=== PATIENT | female | born 1970 | race Caucasian/White ===

== ENCOUNTER 2020-01-07 04:48 | Emergency (ER) | payer BC, SELFPAY ==
--- NOTE | 2020-01-07 04:51 | ED.BACK ---
HPI - Back Pain/Injury General Chief Complaint: Back Pain/Injury Stated Complaint: back pain Time Seen by Provider: 01/07/20 04:51 History of Present Illness HPI Narrative: right mid back pain for the past week. Hurts worse with deep inspiration, laughing, coughing. She has seen her PCP had x-rays, and a CT scan which did not show anything. She is currently being treated with muscle relaxers and tylenol with mild benefit. Related Data Home Medications Medication Instructions Recorded Confirmed bupropion HCl [Wellbutrin XL] 450 mg PO DAILY 06/28/19 07/13/19 olmesartan-hydrochlorothiazide 1 tablet PO DAILY 06/28/19 07/13/19 [Benicar HCT] Allergies Allergy/AdvReac Type Severity Reaction Status Date / Time No Known Allergies Allergy Verified 01/07/20 04:59 Review of Systems Review of Systems: All systems reviewed & are unremarkable except as noted in HPI and below Constitutional: Constitutional: Denies chills and Denies fever(s) Cardiovascular: Cardiovascular: Denies chest pain Respiratory: Respiratory: Denies cough and Denies dyspnea Gastrointestinal: Gastrointestinal: Denies abdominal pain, Denies nausea and Denies vomiting Genitourinary: Genitourinary: Denies hematuria, Denies nocturia and Denies dysuria Musculoskeletal: Musculoskeletal: Reports back pain Neurologic: Denies numbness and Denies weakness PMFSH Past Medical History Medical History Acute diverticulitis Breast cancer, right Cyst of Bartholin gland or duct removed and had to be taken back to surgery of 2nd time to cauterize the bleeders Depression Diverticulitis Fracture of right hip requiring operative repair Hypertension TIERRA (obstructive sleep apnea) Surgical History Surgical History H/O mastectomy bilateral with a history of right breast cancer and breast reconstruction History of appendectomy History of breast reconstruction History of bunionectomy S/P arthroscopic surgery of right knee Family History Family History Mother Family history of osteoarthritis Dementia Father Family history of lung cancer, Onset Age: 75 Patient's father is Social History Social History Social History: 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 She desires to be a full code. She has 2 children. Two girls 11 in 13. She is currently unemployed. Smoking status: Never smoker Alcohol intake: current Substance use: never Other substance usage details: occasional alcohol intake socially (2-3 drinks per month) Gender identity (if verbalized by the patient): Female Spiritual care concerns: No Agree to blood products: Yes Exam Const: General: healthy appearing, no acute distress and alert Orientation/consciousness: patient oriented x3 HENMT: Head: normal to inspection Resp: Effort & Inspection: normal respiratory effort Auscultation: clear to auscultation bilaterally Cardio: Rate: regular rate Rhythm: regular rhythm GI: Other: NTND Skin: General skin exam: normal color Neuro: General: patient oriented x3, moves all extremities, no focal motor deficits and CN's II-XI intact bilaterally Speech: normal speech Extrem: General: normal to inspection Course Vital Signs Vital signs: Vital Signs Temperature 36.8 C 01/07/20 04:53 Pulse Rate 104 H 01/07/20 04:53 Respiratory Rate 20 01/07/20 04:53 Blood Pressure 178/104 H 01/07/20 04:53 Pulse Oximetry 99 01/07/20 04:53 Temperature 36.8 C 01/07/20 04:53 Pulse Rate 100 01/07/20 06:07 Respiratory Rate 20 01/07/20 06:07 Blood Pressure 148/88 H 01/07/20 06:07 Pulse Oximetry 98 01/07/20 06:07 MDM - Back Pain/Injury MDM Narrative Medical decision making narrative: She see
[2020-01-07 04:53] VITALS: BP 178/104; PULSE 104; RESP 20; TEMP 36.8; O2SAT 99
[2020-01-07] MEDS: KETOROLAC (*BKC) 60 MG/2 ML VIAL IM (05:24)
[2020-01-07 05:38] LABS: Add Urine Microscopic? YES; Appearance Urine Cloudy (Clear); Bacteria Urine Trace /hpf; Bilirubin Urine Negative (Negative); Blood Urine Negative (Negative); Color Urine Yellow (Yellow); Glucose Urine UA Negative (Negative); Ketones Urine Negative (Negative); Leukocyte Esterase Ur 1+ LEU/UL (Negative); Mucus Urine Rare /lpf; Nitrate Urine Negative (Negative); Protein Urine Negative (Negative); RBC Urine 0-2 /hpf (0-2); Squamous Epithelial Cell Urine Many /hpf (Few); Urobilinogen Urine Negative mg/dL (<2.0)
[2020-01-07 05:39] LABS: Specific Grav Ur 1.033 (1.001-1.035)
[2020-01-07 06:07] VITALS: BP 148/88; PULSE 100; RESP 20; O2SAT 98
== END 2020-01-07 06:10 | disposition home or self-care (01) ==
PROVIDERS: Emergency Provider Emergency Medicine; PCP Internal Medicine
DX: M54.6 Pain in thoracic spine (principal); Z85.3 Personal history of malignant neoplasm of breast; I10 Essential (primary) hypertension; G47.33 Obstructive sleep apnea (adult) (pediatric); Z90.11 Acquired absence of right breast and nipple
CPT/HCPCS: 81001; 96372; 99283; J1885

== ENCOUNTER 2020-01-12 15:49 | Emergency (ER) | payer BC, SELFPAY ==
--- NOTE | ~2020-01-12 | XR_ITS ---
EXAMINATION: XR ribs RT 2V w CXR 2V DATE: 01/12/2020 16:57 INDICATION: Lower posterior right rib pain following chiropractic adjustment TECHNIQUE: PA and lateral views of the chest and 3 views of the right ribs were obtained. COMPARISON: Chest radiograph and CT dated 08/31/2014 FINDINGS: No rib fractures identified. No pneumothorax. No focal infiltrates, pleural effusion or pulmonary chalino ma. Cardiomediastinal silhouette is normal. Bilateral breast implants. Mild to moderate thoracic spo ndylosis. IMPRESSION: 1. No rib fracture or acute cardiopulmonary disease. Reviewed, dictated and finalized at location A.
[2020-01-12 15:57] VITALS: BP 176/110; PULSE 99; RESP 20; TEMP 36.3; O2SAT 100
--- NOTE | 2020-01-12 16:48 | ED.BACK ---
HPI - Back Pain/Injury General Chief Complaint: Back Pain/Injury Stated Complaint: Back pain Time Seen by Provider: 01/12/20 16:14 Source: patient Mode of arrival: ambulatory Limitations: no limitations History of Present Illness HPI Narrative: This is a 49 year old female that presents to the ER for right-sided back pain present x2 weeks. Reports she has been seeing her primary care doctor for this and has had a CT scan and MRI of her back. Reports no recent injury or trauma. Reports she saw her chiropractor yesterday and the pain initially was better. Reports last night it started to worsen again. She has taken Tylenol and anti-inflammatories with little relief today. Denies weakness or numbness. Related Data Home Medications Medication Instructions Recorded Confirmed bupropion HCl [Wellbutrin XL] 450 mg PO DAILY 06/28/19 07/13/19 olmesartan-hydrochlorothiazide 1 tablet PO DAILY 06/28/19 07/13/19 [Benicar HCT] Allergies Allergy/AdvReac Type Severity Reaction Status Date / Time No Known Allergies Allergy Verified 01/12/20 16:01 Review of Systems Review of Systems: Narrative: CONSTITUTIONAL: Denies fever MUSCULOSKELETAL: Reports back pain, and myalgia. NEUROLOGIC: Denies numbness, or weakness. 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 She desires to be a full code. She has 2 children. Two girls 11 in 13. She is currently unemployed. Smoking status: Never smoker Alcohol intake: current Substance use: never Other substance usage details: occasional alcohol intake socially (2-3 drinks per month) Gender identity (if verbalized by the patient): Female Spiritual care concerns: No Agree to blood products: Yes Exam Narrative: Exam Narrative: GENERAL: Well-appearing, well-nourished, and in no acute distress. HEAD: Normocephalic, atraumatic. EYES: EOMI. CHEST: Clear to auscultation. No respiratory distress. No wheezes rales or rhonchi HEART: Regular rate and rhythm. No murmur heard. Normal peripheral pulses. BACK: Tender to palpation of the right thoracic paraspinal musculature EXTREMITIES: Normal range of motion. No edema. Strength equal in bilateral upper extremities SKIN: Warm, dry, no rash. NEURO: No focal deficits. Alert and oriented x3. PSYCH: Normal mood and affect Course Vital Signs Vital signs: Vital Signs Temperature 97.3 F L 01/12/20 15:57 Pulse Rate 99 01/12/20 15:57 Respiratory Rate 20 01/12/20 15:57 Blood Pressure 176/110 H 01/12/20 15:57 Pulse Oximetry 100 01/12/20 15:57 Temperature 97.3 F L 01/12/20 15:57 Pulse Rate 99 01/12/20 15:57 Respiratory Rate 20 01/12/20 15:57 Blood Pressure 176/110 H 01/12/20 15:57 Pulse Oximetry 100 01/12/20 15:57 MDM - Back Pain/Injury MDM Narrative Medical decision making narrative: Patient presents the emergency department for right-sided mid back pain x2 weeks. Was seen here for this 5 days ago. No new injuries or trauma. She is afebrile and nontoxic-appearing. Patient is neurologically intact. Tender to palpation of the right-sided paraspinal musculature. Rib/chest x-rays without acute findings. She has been seen by her primary for this and has had CT scan and MRI done. Patient is stable and felt appropriate for further outpatient evaluation. She is to follow-up with her primary care doctor. She was given warnings to return to the ER Imaging Data Radiologist's impression: ITS Impressions Ribs w/Chest X-Ray 01/12/20 17:21 IMPRESSION: 1. No rib fracture or acute cardiopulmonary disease. Critical Care Time Critical Care Time Critical Care Time: No Discharge Plan Discharge Clinical Impression: Acute right-sided thoracic back pain Patient Disposition: Home, Self-Care
--- NOTE | 2020-01-12 17:38 | PC.NURSE ---
Reports no change in pain.
== END 2020-01-12 19:03 | disposition home or self-care (01) ==
PROVIDERS: Emergency Provider Emergency Medicine
DX: M54.6 Pain in thoracic spine (principal)
CPT/HCPCS: 71046; 71100; 96372; 99283; J3360

== ENCOUNTER 2021-05-31 12:00 | Emergency (ER) | payer BC, SELFPAY ==
[2021-05-31 12:20] VITALS: BP 151/115; PULSE 86; RESP 16; TEMP 37; O2SAT 100
--- NOTE | 2021-05-31 13:24 | PC.NURSE ---
Pt states that she is going to check out and follow up with her eye doctor tomorrow.
== END 2021-05-31 13:24 | disposition left against medical advice (07) ==
LOC: ANHED 13:56
PROVIDERS: Emergency Provider Family Medicine
DX: H53.8 Other visual disturbances (principal)
CPT/HCPCS: 99199

== ENCOUNTER 2022-09-12 02:50 | Emergency (ER) | payer BC, SELFPAY ==
[2022-09-12] VITALS (30 sets, daily range): BP systolic 93–135; BP diastolic 53–101; PULSE 72–105; RESP 10–22; TEMP 36.9; O2SAT 93–99
--- NOTE | ~2022-09-12 | CT_ITS ---
EXAMINATION: CT abdomen pelvis w con DATE: 09/12/2022 05:15 INDICATION: Diverticulitis. Low abdominal pain for 3 days. Nausea. Low fever. TECHNIQUE: Computed tomography (CT) of the abdomen and pelvis was performed with 100 cc Omnipaque 350 intravenous contrast. The dose-length product was 618.52 mGy-cm. Automated exposure control and iter ative reconstruction technique were employed. COMPARISON: CT dated 07/13/2019 FINDINGS: There are bilateral breast implants. Lung bases are unremarkable. Heart size normal. No sig nificant vascular abnormality. No lymphadenopathy. There is a acute diverticulitis of the distal descending and proximal sigmoid colon. Moderate surroun ding phlegmonous change. No evidence for perforation or abscess. Fatty infiltration of the liver. Gallbladder is present. The spleen, pancreas, adrenal glands are unr emarkable. There are small subcentimeter hypodensities of the kidneys, too small to characterize. [place] lorri is mildly enlarged. No significant vascular abnormality. No lymphadenopathy. There are degenerati ve changes of the hips. There is heterotopic ossification adjacent to the right femur proximally. Mil d lumbar spondylosis. IMPRESSION: 1. Acute diverticulitis of the distal descending/proximal sigmoid colon without evidence for perforat ion or abscess Reviewed, dictated and finalized at location A. [facility] [employer] IMPRESSION: 1. Acute diverticulitis of the distal descending/proximal sigmoid colon without evidence for perforation or abscess
[2022-09-12 04:20] LABS: Appearance Urine Clear (Clear); Basophils Absolute Auto 0.1 K/mm3 (0.0-0.1); Basophils Percent Auto 0.3 % (0.2-1.2); Bilirubin Urine Negative (Negative); Blood Urine Negative (Negative); Color Urine Yellow (Yellow); Eosinophils Absolute Auto 0.3 K/mm3 (0-0.3); Eosinophils Percent Auto 1.9 % (0-4.4); Glucose Urine UA Negative (Negative); Hematocrit 37.9 % (37.0-47.0); Hemoglobin 13.3 g/dL (12.0-15.0); Immature Granulocyte Absolute 0.05 K/mm3 (0.00-0.031); Immature Granulocyte Percent A 0.3 % (0-0.5); Ketones Urine Negative (Negative); Leukocyte Esterase Ur Trace LEU/UL (Negative); Lymphocytes Absolute Auto 1.48 K/mm3 (0.9-3.2); Lymphocytes Percent Auto 10.1 % (18.3-44.2); Mean Corpuscular HGB Conc 35.1 g/dl (32-36); Mean Corpuscular Hemoglobin 31.2 pg (26-34); Mean Platelet Volume 9.2 fl (7.4-10.4); Monocytes Absolute Auto 0.7 K/mm3 (0.1-0.6); Monocytes Percent Auto 5.1 % (2.6-8.5); Neutrophils Percent Auto 82.3 % (45.5-73.1); Nitrate Urine Negative (Negative); Platelet Count Result 331 k/mm3 (150-375); Protein Urine Negative (Negative); Red Blood Count 4.26 M/mm3 (4.2-5.4); Red Cell Distribution Width 16.5 % (11.5-14.5); Specific Grav Ur 1.015 (1.001-1.035); Urobilinogen Urine 0.2 mg/dL (<2.0); White Blood Count 14.6 K/mm3 (4.5-10.0); pH Urine 5.5 (5.0-9.0)
[2022-09-12 04:23] LABS: Mucus Urine Rare /lpf; RBC Urine 0-2 /hpf (0-2); Squamous Epithelial Cell Urine Moderate /hpf (Few); WBC Urine 0-3 /hpf
[2022-09-12] MEDS: ONDANSETRON INJ 4 MG/2 ML VIAL IV PUSH ×2 (04:29→07:45)
[2022-09-12 04:32] LABS: Alanine Aminotransferase 20 U/L (6-35); Albumin Level 4.5 g/dL (3.5-5.1); Alkaline Phosphatase 68 U/L (38-126); Anion Gap 7 mmol/L (8-16); Aspartate Amino Transferase 34 U/L (14-36); Bilirubin,Total 0.7 mg/dL (0.2-1.3); Blood Urea Nitrogen 10 mg/dL (7-17); Calcium 8.9 mg/dL (8.4-10.2); Carbon Dioxide 26 mmol/L (22-30); Chloride 99 mmol/L (98-107); Estimated Glomerular Filt Rate > 60; Glucose 109 mg/dL (65-110); Lipase 76 U/L (23-300); Potassium 4.1 mmol/L (3.4-5.0); Sodium 132 mmol/L (137-145)
[2022-09-12 04:35] LABS: Add Urine Microscopic? YES
--- NOTE | 2022-09-12 06:17 | ED.GENADULT ---
HPI - General Adult General Chief complaint: Abdominal Pain <Cameron Carnes MD - Last Filed: 09/12/22 06:25> Stated complaint: Abd pain, nausea, hx diverticulitis <Cameron Carnes MD - Last Filed: 09/12/22 06:25> Time Seen by Provider: 09/12/22 03:56 <Cameron Carnes MD - Last Filed: 09/12/22 06:25> History of Present Illness HPI narrative: This is a 52-year-old female with history of diverticulitis presenting to ED with left lower quadrant pain. Patient started having pain in the left lower quadrant on morning. She called Dr. Resendez and he prescribed her Flagyl and Augmentin. She has been taking the medicine as directed but her pain is worsening. She is now having intermittent nausea and vomiting. She denies fever, chills or chest pain, difficulty breathing or urinary symptoms. <Cameron Carnes MD - Last Filed: 09/12/22 06:25> Related Data Home medications: Home Medications Medication Instructions Recorded Confirmed bupropion HCl 300 mg 24 hr tablet, 450 mg PO DAILY 06/28/19 06/08/21 extended release (Wellbutrin XL) olmesartan 40 1 tablet PO DAILY 06/28/19 06/08/21 mg-hydrochlorothiazide 12.5 mg tablet (Benicar HCT) <Cameron Carnes MD - Last Filed: 09/12/22 06:25> Allergies/adverse reactions: Allergies Allergy/AdvReac Type Severity Reaction Status Date / Time No Known Allergies Allergy Verified 09/12/22 03:37 <Cameron Carnes MD - Last Filed: 09/12/22 06:25> [facility] Past Medical History Medical History: Medical History (Updated 09/12/22 @ 06:25 by Cameron Carnes MD) Acute diverticulitis Breast cancer, right Cyst of Bartholin gland or duct removed and had to be taken back to surgery of 2nd time to cauterize the bleeders Depression Diverticulitis Fracture of right hip requiring operative repair Hypertension TIERRA (obstructive sleep apnea) <Cameron Carnes MD - Last Filed: 09/12/22 06:25> Surgical History Surgical History: Surgical History H/O mastectomy bilateral with a history of right breast cancer and breast reconstruction History of appendectomy History of breast reconstruction History of bunionectomy S/P arthroscopic surgery of right knee <Cameron Carnes MD - Last Filed: 09/12/22 06:25> Family History Family History: Family History Mother Family history of osteoarthritis Dementia Father Family history of lung cancer, Onset Age: 75 Patient's father is <Cameron Carnes MD - Last Filed: 09/12/22 06:25> Social History Social History: Social History Social History: 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 She desires to be a full code. She has 2 children. Two girls 11 in 13. She is currently unemployed. Smoking status: Never smoker Alcohol intake: current Substance use: never Other substance usage details: occasional alcohol intake socially (2-3 drinks per month) Living arrangements: with family Occupation/Education: unemployed Gender identity (if verbalized by the patient): Female Spiritual care concerns: No Agree to blood products: Yes <Cameron Carnes MD - Last Filed: 09/12/22 06:25> Exam Narrative: APPEARANCE: No apparent distress. Head: atraumatic. EYES: EOMI, NOSE: Atraumatic NECK: Trachea midline RESPIRATORY: No increased rate of breathing CARDIOVASCULAR: RRR, ABDOMINAL: Tenderness palpation in the left lower quadrant. Voluntary guarding. The rest the abdomen is soft, nontender MUSCULOSKELETAl: No obvious deformities NEURO: Alert. Moving 4/4 extremities SKIN:: Warm, dry. Normal color PSYCHIATRIC: Normal affect <Cameron Carnes MD - Last Filed: 09/12/22 06:25> Course Course Emergency Course: 0700 ROSARIO: Signed out to oncoming physician pending
[2022-09-12] MEDS: SODIUM CHLORIDE 0.9% IV 2,000 ML 999 ML IV CONT (06:59)
[2022-09-12] MEDS: HYDROmorphone HCL INJ (*CRX) 1 MG/ML SYR 0.5 MG IV PUSH (07:00)
--- NOTE | 2022-09-12 07:10 | PC.NURSE ---
Report given to GENNA Knight
== END 2022-09-12 09:50 | disposition home or self-care (01) ==
PROVIDERS: Emergency Provider Emergency Medicine; PCP Internal Medicine
DX: K57.32 Diverticulitis of large intestine without perforation or abscess without bleeding (principal); I10 Essential (primary) hypertension; G47.33 Obstructive sleep apnea (adult) (pediatric); F32.A Depression, unspecified; Z85.3 Personal history of malignant neoplasm of breast; Z90.13 Acquired absence of bilateral breasts and nipples
CPT/HCPCS: 36415; 74177; 80053; 81001; 81025; 83690; 85025; 96361; 96365; 96367; 96375; 96376; 99284; J0131; J1170; J2405; J2543; J7030; Q9967

== ENCOUNTER 2023-09-22 08:15 | Outpatient (RCR) | payer BC, SELFPAY ==
--- NOTE | 2023-09-07 11:57 | PTOPEVAL1 ---
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 She reports that she underwent x-ray which revealed some wear on the cartilage. She states that she has had multiple injections with less relief noted following the last Rx. Pt. reports that she continues to walk 1 mile regularly, but has increased pain after the activity. She reports that her doctor did not suggest knee replacement at this time. She states that sitting for long periods of time will also increase her pain. She states that stairs, squatting and kneeling are very difficult due to pain. She reports that she had little complication with standing activities prior to her onset last summer. She reports that her goal is to be able to reduce her knee pain. Reported Pain Level Pain Score 2: Self Report Assessment PT Clinical Summary Pt. is a 53 year old female who enters the clinic with left anterior knee pain syndrome. She presents with impaired flexibility, impaired proximal l.e. strength, impaired gait, impaired postural awareness and pain. Continued skilled PT is indicated in order to improve these areas to allow for improved comfort with IADL performance. Plan of Care Interventions Electrical Stimulation,Gait Training,Hot Pack/Cold Pack,Manual Therapy,Neuro Re-education,Patient/ Caregiver Educati,Therapeutic Activities, Therapeutic Exercise PT Services Indicated Yes Treatment Frequency and 2x/week x 8 visits Duration These treatments will address the objective and functional deficits as defined above. The patient will be advanced safely and appropriately in order for the patient to progress towards his/her prior level of function. Additional exercises will be introduced and as well as a comprehensive home exercise program upon discharge, if needed, ?to ensure carryover of functional gains achieved in the clinic. This treatment plan has been reviewed and agreement upon by the patient.
--- NOTE | 2023-09-07 11:57 | OPREHPOC ---
Outpatient Therapy Plan of Care This is a Multidisciplinary Plan of Care that may contain components documented by all disciplines (PT, OT, and ST.) PT Problem 1 PT Problem #1 Knowledge Deficit PT Goal 1 Goal Independent with a HEP addressing hip strength and flexibility. Target Visit 2 PT Problem 2 PT Problem #2 Impaired Flexibility PT Goal 1 Goal Pt. will present at 15 degrees from full knee extension on both right and left with the 90/90 test. Target Visit 8 PT Problem 3 PT Problem #3 Impaired Strength PT Goal 1 Goal Pt. will improve hip abduction and ER strength bilateral to 4+/5 to improve stability with closed kinetic chain activities and improve postural awareness. PT Problem 4 PT Problem #4 Impaired Gait PT Goal 1 Goal Pt. will be able to ascend and descend 20 steps without pain increase. Target Visit 8 PT Problem 5 PT Problem #5 Impaired Functional Mobil PT Goal 1 Goal Pt. will present with less than 15% limitation with the LEFS indicating significant functional improvement. Target Visit 8
--- NOTE | 2023-09-26 11:05 | PCPTNOTE ---
pt called and canceled today's appt.
--- NOTE | 2023-09-28 07:39 | PCPTNOTE ---
Pt. called a cancelled her scheduled therapy appointment due to being sick. Joe Garcia, MPT
--- NOTE | 2024-02-16 15:46 | PTOPDC ---
Assessment and note entered by Joe Garcia Evaluation Information Assessment Status Discharge - Pt Not Presen Diagnosis anterior knee pain syndrome, left Onset Assessment PT Clinical Summary Pt. attended a total of 5 treatment sessions from 09/07/23 to 09/22/23. During her last sessions she denied pain and provided reports of less intense pain. She cancelled her last 2 scheduled appointments and has failed to return since . At this time she will be discharged from our care. Refer to the last daily note for pt. discharge status. Plan of Care PT Services Indicated No
== END 2023-11-23 11:39 | disposition home or self-care (01) ==
LOC: ANHPT 08:15
PROVIDERS: PCP Internal Medicine; Visit Provider Orthopaedic Surgery
DX: M25.562 Pain in left knee (principal)
CPT/HCPCS: 97014; 97110; 97112; 97161; 97530; G0283

== ENCOUNTER 2024-06-10 08:16 | Emergency (ER) | payer BC, SELFPAY ==
--- NOTE | ~2024-06-10 | CT_ITS ---
EXAMINATION: CT soft tissue neck w con DATE: 06/10/2024 14:13 INDICATION: TECHNIQUE: Computed tomography (CT) of the neck was performed with 75 mL Omnipaque-350 intravenous co ntrast. The dose-length product was 504.79 mGy-cm. COMPARISON: None FINDINGS: Slight enlargement of the left submandibular gland. The thyroid gland is unremarkable. The parotid glands are symmetric. Prominence of the left upper anterior cervical chain lymph nodes, without pa thologic enlargement The superior mediastinum is unremarkable. The airway is unremarkable. Parap haryngeal and pre-glottic fat planes are preserved. Normal enhancing neck arteries. The orbits are unremarkable. Visualized sinuses and mastoid air cells are well aerated. Visualized lung parench yma is clear. Regional bones within normal limits. IMPRESSION: Mild left submandibular gland enlargement. Reviewed, dictated and finalized at location K. R [employer]
[2024-06-10 08:19] VITALS: BP 165/91; PULSE 79; RESP 16; TEMP 36.7; O2SAT 100
[2024-06-10 10:34] VITALS: BP 133/85; PULSE 80; RESP 18; TEMP 36.6; O2SAT 100
[2024-06-10 12:24] LABS: Basophils Percent Auto 0.4 % (0.2-1.2); Eosinophils Absolute Auto 0.3 K/mm3 (0-0.3); Eosinophils Percent Auto 4.5 % (0-4.4); Hematocrit 43.7 % (37.0-47.0); Hemoglobin 15.3 g/dL (12.0-15.0); Immature Granulocyte Absolute 0.01 K/mm3 (0.00-0.031); Immature Granulocyte Percent A 0.1 % (0-0.5); Lymphocytes Absolute Auto 2.59 K/mm3 (0.9-3.2); Lymphocytes Percent Auto 36.6 % (18.3-44.2); Mean Corpuscular Volume 94.4 fl (80-100); Mean Platelet Volume 8.9 fl (7.4-10.4); Monocytes Absolute Auto 0.3 K/mm3 (0.1-0.6); Neutrophils Absolute Auto 3.9 K/mm3 (1.3-6.7); Neutrophils Percent Auto 54.4 % (45.5-73.1); Platelet Count Result 246 k/mm3 (150-375); Red Blood Count 4.63 M/mm3 (4.2-5.4); Red Cell Distribution Width 12.5 % (11.5-14.5); White Blood Count 7.1 K/mm3 (4.5-10.0)
[2024-06-10 12:36] LABS: Anion Gap 9 mmol/L (4-12); Blood Urea Nitrogen 15 mg/dL (7-17); Calcium 9.4 mg/dL (8.4-10.2); Carbon Dioxide 26 mmol/L (22-30); Chloride 102 mmol/L (98-107); Estimated CRCL calculation 79 ml/min; Estimated Glomerular Filt Rate > 60; Glucose 93 mg/dL (65-110); Potassium 4.2 mmol/L (3.4-5.0); Sodium 137 mmol/L (137-145)
--- NOTE | 2024-06-10 14:44 | ED.GENADULT ---
HPI - General Adult General Chief complaint: Unspecified Stated complaint: swollen gland in neck Time Seen by Provider: 06/10/24 11:52 History of Present Illness HPI narrative: This is a 54-year-old female presenting with swelling to her jaw. She notes several days ago that she was developing swelling along the left jawline. Is not interfering with swallowing her own secretions or breathing although there is some discomfort when she swallows. She is having not have any difficulty eating food or drinking water. No fevers chills chest pain nausea vomiting or diarrhea. She saw her dentist and they do not point believe this is of dental origin. Related Data Home Medications Medication Instructions Recorded Confirmed bupropion HCl 300 mg 24 hr tablet, 450 mg PO DAILY 06/28/19 09/25/22 extended release (Wellbutrin XL) olmesartan 40 1 tablet PO DAILY 06/28/19 09/25/22 mg-hydrochlorothiazide 12.5 mg tablet (Benicar HCT) Allergies Allergy/AdvReac Type Severity Reaction Status Date / Time No Known Allergies Allergy Verified 09/23/22 13:04 [facility] Past Medical History Medical History (Updated 06/10/24 @ 14:49 by Cameron Carnes MD) Acute diverticulitis Breast cancer, right Cyst of Bartholin gland or duct removed and had to be taken back to surgery of 2nd time to cauterize the bleeders Depression Diverticulitis Fracture of right hip requiring operative repair Hypertension TIERRA (obstructive sleep apnea) Surgical History Surgical History H/O mastectomy bilateral with a history of right breast cancer and breast reconstruction History of appendectomy History of breast reconstruction History of bunionectomy S/P arthroscopic surgery of right knee Family History Family History Mother Family history of osteoarthritis Dementia Father Family history of lung cancer, Onset Age: 75 Patient's father is Social History Social History Social History: 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 She desires to be a full code. She has 2 children. Two girls 11 in 13. She is currently unemployed. Smoking status: Never smoker Alcohol intake: current Substance use: never Other substance usage details: occasional alcohol intake socially (2-3 drinks per month) Living arrangements: with family Occupation/Education: unemployed Gender identity (if verbalized by the patient): Female Spiritual care concerns: No Agree to blood products: Yes Exam Narrative: APPEARANCE: No apparent distress. Head: Good dentition, mild swelling underneath the left mandible, floor of the mouth is soft, no redness or significant tenderness. No erythema or swelling in the posterior oropharynx EYES: EOMI, NOSE: Atraumatic NECK: Trachea midline RESPIRATORY: No increased rate of breathing CARDIOVASCULAR: RRR, ABDOMINAL: Non-distended MUSCULOSKELETAl: No obvious deformities NEURO: Alert. Moving 4/4 extremities SKIN:: Warm, dry. Normal color PSYCHIATRIC: Normal affect Course Vital Signs Vital signs: Vital Signs Temperature 98.0 F 06/10/24 08:19 Pulse Rate 79 06/10/24 08:19 Respiratory Rate 16 06/10/24 08:19 Blood Pressure 165/91 H 06/10/24 08:19 Pulse Oximetry 100 06/10/24 08:19 Oxygen Delivery Room Air 06/10/24 08:19 Temperature 97.8 F 06/10/24 10:34 Pulse Rate 80 06/10/24 10:34 Respiratory Rate 18 06/10/24 10:34 Blood Pressure 133/85 06/10/24 10:34 Pulse Oximetry 100 06/10/24 10:34 Oxygen Delivery Room Air 06/10/24 08:19 Medical Decision Making MDM Narrative Medical decision making narrative: -Course: 54-year-old female presenting with swelling along the left jawline. CT soft tissue neck is shows a swollen mandibular gland. No fevers or elevated white blood cell count. Patient will be placed on Augmentin. Instructed to use sour candies to cover sialolithiasis. Patient given a ENT follow-up and return precautions. -DDX includes but is not limited to: Sialolithiasis, mandibular right infection -Co-morbidities complicating care: Hypertension, depression -Independent interpretation of studies: Imaging and lab work -Interventions: Augmentin b.i.d. x5 days -Shared decision making / Disposition: -RX Vital Signs Vital Signs: Vital Signs Temperature 98.0 F 06/10/24 08:19 Pulse Rate 79 06/10/24 08:19 Respiratory Rate 16 06/10/24 08:19 Blood Pressure 165/91 H 06/10/24 08:19 Pulse Oximetry 100 06/10/24 08:19 Oxygen Delivery Room Air 06/10/24 08:19 Temperature 97.8 F 06/10/24 10:34 Pulse Rate 80 06/10/24 10:34 Respiratory Rate 18 06/10/24 10:34 Blood Pressure 133/85 06/10/24 10:34 Pulse Oximetry 100 06/10/24 10:34 Oxygen Delivery Room Air 06/10/24 08:19 Lab Data 06/10/24 12:19 06/10/24 12:19 Labs: Lab Results 06/10/24 Range/Units 12:19 WBC 7.1 (4.5-10.0) K/mm3 RBC 4.63 (4.2-5.4) M/mm3 Hgb 15.3 H (12.0-15.0) g/dL Hct 43.7 (37.0-47.0) % MCV 94.4 (80-100) fl MCH 33.0 (26-34) pg MCHC 35.0 (32-36) g/dl RDW 12.5 (11.5-14.5) % Plt Count 246 (150-375) k/mm3 MPV 8.9 (7.4-10.4) fl Immature Gran % (Auto) 0.1 (0-0.5) % Neut % (Auto) 54.4 (45.5-73.1) % Lymph % (Auto) 36.6 (18.3-44.2) % Ellis % (Auto) 4.0 (2.6-8.5) % Eos % (Auto) 4.5 H (0-4.4) % Baso % (Auto) 0.4 (0.2-1.2) % Lymph # (Auto) 2.59 (0.9-3.2) K/mm3 Ellis # (Auto) 0.3 (0.1-0.6) K/mm3 Eos # (Auto) 0.3 (0-0.3) K/mm3 Baso # (Auto) 0.0 (0.0-0.1) K/mm3 Abs Immat Gran (auto) 0.01 (0.00-0.031) K/mm3 Absolute Neuts (auto) 3.9 (1.3-6.7) K/mm3 Absolute Nucleated RBC 0.000 (0.0-0.012) K/mm3 Nucleated RBC % 0.0 (0.0-0.2) % Sodium 137 (137-145) mmol/L Potassium 4.2 (3.4-5.0) mmol/L Chloride 102 (98-107) mmol/L Carbon Dioxide 26 (22-30) mmol/L Anion Gap 9 (4-12) mmol/L BUN 15 D (7-17) mg/dL Creatinine 0.80 (0.7-1.0) mg/dL Estim Creat Clear Calc 79 ml/min Estimated GFR > 60 (59 - ) Glucose 93 (65-110) mg/dL Calcium 9.4 (8.4-10.2) mg/dL Discharge Plan Discharge Clinical Impression: Salivary gland swelling Patient Disposition: Home, Self-Care Condition: Stable Instructions: Antibiotic Form, Sialoadenitis (ED) Additional Instructions: Please take the antibiotics as instructed. Please use sour candies to help empty her salivary gland. Please follow-up with ENT in the next 3-5 days for further management. Return if you develop fevers severe swelling in her neck, difficulty breathing or difficulty swallowing her own secretions. Prescriptions: New amoxicillin-pot clavulanate 875-125 mg tablet 1 tablet PO Q12H Qty: 10 0RF No Action olmesartan-hydrochlorothiazide [Benicar HCT] 40-12.5 mg tablet 1 tablet PO DAILY bupropion HCl [Wellbutrin XL] 300 mg tablet extended release 24 hr 450 mg PO DAILY ondansetron 4 mg tablet,disintegrating 4 mg PO Q6H PRN (Reason: nausea and vomiting) Qty: 10 0RF Follow-up/Referrals: Rigo Pierre MD [Physician] - 3 Days (mandibular gland swelling ) Jackie,Lux Moreira MD [Primary Care Provider] -
[2024-06-10 14:53] VITALS: BP 120/80; PULSE 70; RESP 19; O2SAT 98
== END 2024-06-10 15:07 | disposition home or self-care (01) ==
PROVIDERS: Emergency Provider Emergency Medicine; PCP Internal Medicine
DX: K11.1 Hypertrophy of salivary gland (principal); I10 Essential (primary) hypertension; G47.33 Obstructive sleep apnea (adult) (pediatric); F32.A Depression, unspecified; Z85.3 Personal history of malignant neoplasm of breast; Z90.13 Acquired absence of bilateral breasts and nipples; Z79.899 Other long term (current) drug therapy
CPT/HCPCS: 36415; 70491; 80048; 85025; 99284; Q9967

== ENCOUNTER 2024-10-28 05:51 | Emergency (ER) | payer BC, SELFPAY ==
[2024-10-28] VITALS (20 sets, daily range): BP systolic 108–135; BP diastolic 70–98; PULSE 67–87; RESP 12–23; TEMP 37.1; O2SAT 92–100
--- NOTE | ~2024-10-28 | CT_ITS ---
CTA chest PE protocol Ordering provider: Anand Meek MD History: 54 years Female with . Back pain with deep breath . Comparison: None. Technique: CT angiogram chest was performed following timed intravenous injection of contrast. Thin s lice axial images and reformatted coronal images were obtained. Three dimensional reformatted images of the chest were also obtained using a [employer] workstation. . Automated exposure control and iterati ve reconstruction technique were employed. The dose-length product was 407.07 mGy-cm. 100 mL Omnipaqu e 350 was given IV. Findings: Bilateral breast implants. PULMONARY ARTERIES: No pulmonary embolus. VISUALIZED THORACIC INLET: Normal. MEDIASTINUM: Aorta/coronary arteries: The thoracic aorta is normal. Heart/other: The heart is not enlarged. Lymph nodes: No mediastinal or hilar adenopathy. LUNGS: No pulmonary nodules or masses. No infiltrates or effusions. No pneumothorax. VISUALIZED UPPER ABDOMEN: Small sliding hiatus hernia. Stent is seen in the splenic artery. Otherwise , the visualized upper abdomen is normal. MUSCULOSKELETAL: Soft tissues: The superficial soft tissues are normal. Bones: Age appropriate degenerative changes of the spine. IMPRESSION: 1. No pulmonary embolism. 2. No acute cardiopulmonary pathology. 3. Small sliding hiatus hernia. Reviewed, dictated and finalized at location A.
--- OUTSIDE RECORDS SUMMARY | 2024-10-28 05:54 | XMS_ITS | Data Portability ---
Author Organization [place] - [facility], Main Office Address [address] [place] [address] Care Team Providers Care Computer Peripheral Equipment Operator Name Role Phone VANESSA MARI Primary Care Provider VANESSA MARI Referring Provider Assessment Encounter Date Assessment Date Assessment LastModified by Organization Details LastModified Time 03/16/2023 03/16/2023 HPI: 53-year-old female came in today for evaluation of her left anterior knee pain. 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 She was doing a lot of extra running and jumping. She does not recall any exact injury while doing this. However the next day she woke up with rather severe pain in the anterior aspects of both of her knees. The right knee has quieted down left continued bothersome for her. It is bothering her with stairs or bending or squatting. Walking flat level ground has minimal discomfort. Patient not take anti-inflammatori es due to her history of diverticulitis which anti-inflammatori es tend to aggravate. 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 Physical exam: 53-year-old female, she is 5 ft 5 and 185 lb her BMI is 30.8. She has trace effusion in left knee. She has moderate pain with patellofemoral grind and inhibition testing. Range of motion is from 0-140 degrees. There is some mild discomfort anteriorly at 140 . There is no tenderness over the medial or lateral joint lines in the knee. Hip range of motion is full without discomfort. Normal ligament exam to the left knee. No swelling in either lower extremity. She walks relatively well without limp. After ChloraPrep was used on skin 20 mg Kenalog and 3 cc of 0.5% ropivacaine was injected into left knee. Risk infection discussed. Impression: 53-year-old female has at least mild patellofemoral osteoarthritis on the left knee. 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 We talked about treatment options including weight loss, physical therapy and last is cortisone injection which I think would be reasonable since she does have early osteoarthritis on the x-rays and is not able take anti-inflammatori es. She would like to have a shot. She can repeat these in the future if she has a flare-up. Weight loss would be very beneficial. 10-15 lb weight loss can make a dramatic improvement of her symptoms. Prior to this episode December patient was having no symptoms in the so there is a good chance that shot get this to quiet down and she may remain asymptomatic for a time. She should avoid stairs as much as possible at the house as well as squatting and stooping we discussed this as well. She will follow up as needed. If she does have continued symptoms and does not work next step would be is to get an MRI scan knee. 30 minutes was spent treatment patient than this in [email or web address]-hb-[email or web address] conversation [email or web address] Not available 03/16/2023 10:33:55 08/17/2023 08/17/2023 Impression: Patient has mild patellofemoral arthritis left knee and presents with anterior knee pain. I have discussed options with her. She would like to the cortisone shot strength relief today. Risk of side effects including the risk of infection and the risk of having more rapid progression of the osteoarthritis if she has multiple cortisone shots over period of time was discussed. After ChloraPrep prep, 20 mg of Kenalog and 4 cc of 0.5% ropivacaine were injected into the left knee without difficulty. We talked about weight loss. She has a little bit overweight and weight loss may be helpful. Finally, I have recommended that she pursue a course of physical therapy focusing on hamstring and quadriceps stretching hip abduction external rotation core strength and avoidance of quadriceps strengthening the course. I am happy to see her back if she has further problems with this. [email or web address] Not available 08/21/2023 15:09:52 Plan of Treatment Reminders Order Date Submit Date Provider Last Modified By Organization Details Last Modified Time Details Appointments None recorded. Lab None recorded. Referral None recorded. Procedures injection/a spiration joint/bursa (PROC) - in office procedure, administere d by provider 2023 024 In-Office Order, Internal Use Only DO Not Attach Compendium DO Not Attach Compendium, Do Not Delete/merge, [id number] 09:52:36 injection/a spiration joint/bursa (PROC) - in office procedure, administere d by provider 2022 023 [email or web address] In-Office Order, Internal Use Only DO Not Attach Compendium DO Not Attach Compendium, Do Not Delete/merge, [id number] 10:07:10 Surgeries None recorded. Imaging XR, knee [address] [address] [facility] [place], [facility] [address], [place], [address], 3 12:57:24 Medication Orders Kenalog 10 mg/mL suspension for injection [id number], [address] [place], [address], 4 16:34:01 ropivacaine (PF) 5 mg/mL (0.5 %) injection solution [id number], [address] [place], [address], 4 16:34:01 Kenalog 10 mg/mL suspension for injection [address], [address] [place], [address], 3 12:57:24 ropivacaine (PF) 5 mg/mL (0.5 %) injection solution [address], [address] [place], [address], 3 12:57:24 Patient TargetsNo targets recorded. Patient InstructionsNo instructions recorded. Reason for Referral None Reported. Results Created Date Observation Date Name Description Value Unit Range Abnormal Flag Note LastModifiedBy Organization Detail LastModifiedTime 03/16/20 XR, knee No observ ation record ed. [email or web address] [facility] [place] [address], [place], [address], 03/16/2023 10:30:12 Result Notes None recorded. Problems Name Problem SNOMED Code Status Onset Date Resolution Date Notes Provider Name and Address Organization Details Recorded Time Pain of left knee joint [id number] Active 2022 KATE Dillon, [place] - [facility] 09:33:02 Problem Notes None recorded. Procedures Surgical History Date Name Laterality Status Provider Name and Address Organization Details Recorded Time Masectomy completed KATE Dillon [facility] 03/16/2023 09:31:46 Arthroscopy completed KATE Dillon [facility] 03/16/2023 09:31:56 procedure on lymph node completed KATE Dillon [facility] 03/16/2023 09:32:14 Imaging Results Imaging Date Name Status LastModified by Organiz ation Details LastModified Time 03/16/2023 XR, knee completed [email or web address] [facility] [place] [address], [place], [address], 03/16/2023 10:30:12 Procedure Notes None recorded. Medical Equipment None Reported. Medications Name Sig Start Date Stop Date Status Note LastModified by Organization Details LastModified Time medroxyprog esterone 10 mg tablet 2 TABLET(S) ORAL 3X DAILY FOR 7D, THEN 2 TABS ORAL DAILY FOR 21D active Not Available Not Available No t Available hydrocodone 5 mg-acetamin ophen 325 mg tablet active Not Available Not Available No t Available pimecrolimu s 1 % topical cream APPLY 1 APPLICATI ON TOPCIALLY TWICE A DAY FOR 30 DAYS active Not Available Not Available No t Available metronidazo le 500 mg tablet 500 MG ORALLY EVERY 8 HOURS FOR DIVERTICU LITIS active Not Available Not Available No t Available valacyclovi r 500 mg tablet TAKE 1 TABLET BY MOUTH TWICE A DAY active Not Available Not Available No t Available oxycodone-a cetaminophe n 5 mg-325 mg tablet TAKE 1 TABLET BY MOUTH EVERY 6 HOURS NEEDED FOR PAIN active Not Available Not Available No t Available alprazolam 0.25 mg tablet TAKE 1 TABLET BY MOUTH 2 TIMES A DAY NEEDED FOR ANXIETY. active Not Available Not Available No t Available Kenalog 10 mg/mL suspension for injection in office 2023 active [facility]: 0003- [id number]- 20 Not Available Not Available Not Available progesteron e micronized 200 mg capsule TAKE 1 CAPSULE BY MOUTH 14 NIGHTS MONTHLY active Not Available Not Available No t Available estradiol 0.01% (0.1 mg/gram) vaginal cream DAB SMALL AMOUNT ONTO AFFECTED AREA AT BEDTIME UNLESS OTHERWISE DIRECTED BY PHYSICIAN . active Not Available Not Available No t Available ondansetron 4 mg disintegrat ing tablet DISSOLVE 1 TABLET ON THE TONGUE EVERY 8 HOURS NEEDED FOR NAUSEA AND VOMITING active Not Available Not Available No t Available amoxicillin 875 mg-potassiu m clavulanate 125 mg tablet 1 TABLET ORALLY TWICE A DAY FOR DIVERTICU LITIS 03/16 completed Not Available Not Available Not Available olmesartan 40 mg tablet TAKE 1 TABLET BY MOUTH EVERY DAY active Not Available Not Available No t Available bupropion HCl XL 300 mg 24 hr tablet, extended release TAKE 1 TABLET (300 MG TOTAL) BY MOUTH EVERY MORNING. active Not Available Not Available No t Available bupropion HCl XL 150 mg 24 hr tablet, extended release TAKE 1 TABLET BY MOUTH EVERY DAY IN THE MORNING active Not Available Not Available No t Available nitrofurant oin monohydrate /macrocryst als 100 mg capsule TAKE 1 CAPSULE BY MOUTH EVERY DAY NEEDED active Not Available Not Available No t Available hydrochloro thiazide 12.5 mg tablet TAKE 1 TABLET BY MOUTH EVERY DAY active Not Available Not Available No t Available lidocaine 2 % mucosal jelly in applicator APPLY 2 ML 3 TIMES A DAY EVERY DAY NEEDED TO CONTROL SYMPTOMS AND PAIN DIRECTED active Not Available Not Available No t Available GaviLyte-G 236 gram-22.74 gram-6.74 gram-5.86 gram oral solution PLEASE SEE ATTACHED FOR DETAILED DIRECTION S active Not Available Not Available No t Available ropivacaine (PF) 5 mg/mL (0.5 %) injection solution in office 2023 active Not Available Not Available Not Avai lable bupropion HCl 150 mg tablet,12 hr sustained-r elease(smok ing deterrent) TAKE 1 TABLET BY MOUTH TWICE A DAY 03/16 completed Not Available Not Available Not Available Vitals Date Recorded Body height Body mass index (BMI) Body weight Provider Name and Address Organization Details Last Updated DateTime 03/16/2023 165.1 cm 30.8 kg/m2 87548.59 g KATE Dillon [facility] [employer] [facility] 03/16/2023 09:39:05 Date Recorded Body height Provider Name an d Address Organization Details Last Updated DateTime 08/17/2023 165.1 cm KATE Dillon [facility] [employer] [facility] 08/17/2023 09:50:51 Social History Question Answer Notes LastModified by Organizat ion Details LastModified Time Tobacco Smoking Status Never Smoker KATE Dillon [facility] [employer] [facility] 03/16/2023 09:31:37 What Is Your Level Of Alcohol Consumption? None [email or web address] Information not available 03/16/2023 Sex: Unknown Functional Status None recorded. Mental Status None recorded. Family History Relationship Description Onset Age of this Age Resolved Age Notes LastModified by Organization Details LastModified Time Maternal Grandmother Heart disease Not available 2022 09:30:40 Maternal Grandmother Family history of stroke [email or web address] Not available 2022 09:30:50 Father Family history of malignant neoplasm Not available 2022 09:31:13 Father Hypertensive disorder [email or web address] Not available 2022 09:31:27 Paternal Grandmother Family history of malignant neoplasm [email or web address] Not available 2022 09:31:13 Medical History Condition Response HYPERTENSION Y CANCER: SPECIFY Y Gynecological HistoryNo gynecological history recorded. Obstetrics History GPAL:G 0 P 0 0 0 0 Past Encounters Encounter ID Performer Location Encounter Start Date Encounter Closed Date Diagnosis/Indication Diagnosis SNOMED-CT Code Diagnosis ICD10 Code Diagnosis Note [id number] MANJU William [facility] [place] [address] [place] [address] 03/16/2023 09:11:18 03/16/2023 10:58:59 Pain of left knee joint [id number] 30657 M25.374 [id number] John Medrano MD [facility] [place] [address] [facility] [address] [place] [address] 08/17/2023 09:36:52 08/22/2023 11:35:27 Pain of left knee joint [id number] 47951 M25.562 Health Concerns Section Related Observation LastModified by Organization Detai ls LastModified Time None Recorded Concern Status LastModified by Organization Details LastModified Time None Recorded Advance Directives Directive None Recorded Payers Encounter Date Sequence Insurance Name Policy Number Policy Thapa Covered Member ID Thapa Member ID Guarantor Name 03/16/2023 1 [place] [id number] Jeramy Garcia [id number] 30 Nancie Garcia 08/17/2023 1 [place] [id number] Jeramy Garcia [id number] Nancie Garcia Notes Date Note Type Note Provider Name and Address Organization Details Recorded Time 08/17/2023 text/html Patient returns. She would like to have another cortisone shot her left knee today. Her previous x-rays demonstrate mild patellofemoral arthritis in the left knee. She had a cortisone shot left knee March 16, 2023 for anterior knee pain. This helped quite a bit but her symptoms have returned. If she kicks and with descending stairs she has pain. Pain is diffuse anteriorly. She has not had physical therapy as yet this problem. She cannot take nonsteroidal anti-inflammatory medications because she is prone to diverticulosis problems. Patient recently underwent vaginal surgery and had to be in a recliner for 6 weeks so she feels she has become deconditioned. Prior to this she was doing a lot of walking and biking to try to lose weight. John Medrano MD [address] [place] [address], [place] [address], [place], [address], [facility] [employer] 08/21/2023 15:10:04 OBGyn Episode No OBEpisode recorded.
--- OUTSIDE RECORDS SUMMARY | 2024-10-28 05:54 | XMS_ITS | Continuity of Care Document ---
Author Organization [facility] Address [address] [place] [address] Phone Care Team Providers Care Build Engineer Name Role Phone Gabriel Garner Unavailable Unavailable Procedures Procedure Date Post-op Follow-up Visit Post-op Follow-up Visit Remove Eyelid Lesion Eye Exam, New Patient Advance Directives Directive Yes / No Effective Date File Name No Information Encounters Encounter Description Practice Location Reason(s) For Visit Diagnoses Date Provider Providers Copied on Encounter [facility], [id number] [place] [address] [address], [place], [place], [id number], tel:[phone] [facility] No Information 3[address] Krishnasamy Gabriel. [facility] [address], [facility], [place]. tel:[phone] Referring Provider: Melvin Garnett MD, [address] [place], [address]. tel:[phone] [facility], [address], [place], [place], [id number], [place] tel:[phone] [facility] No Information 5-200 8 Krishnasamy Gabriel. [address] [address], [place], [address], [place]. tel:[phone] Referring Provider: Melvin Garnett MD, [address] [place], [address]. tel:[phone] [facility], [address] [facility] [address], [place], [place], [address], tel:[phone] [facility] No Information 8-200 8 Krishnasamy Gabriel. [facility] [address], [facility], [place]. tel:[phone] Referring Provider: Melvin Garnett MD, [address] [place] [address], [address]. tel:[phone] [facility], [address] [facility] [address], [place], [place], [address], tel:[phone] [facility] No Information 6-200 8 Krishnasamy Gabriel. [facility] [address], [facility], [place]. tel:[phone] Referring Provider: Melvin Garnett MD, [address] [place], [address]. tel:[phone] Family History Family Member Type Diagnosis Age At Onset No Information Payers Payer name Insurance type Covered green party ID Authoriza tion(s) No Information Social History Type Description Quantity Date Captured Comments Sex Female Smoking Status No Information Chief Complaint And Reason For Visit No Information Reason For Referral Reason For Referral No Information History Of Present Illness Encounter Date Complaint History Of Prese nt Illness No Information Functional Status Date Functional Assessmen t No Information Instructions Date Instruction Additional Infor mation No Information Assessments Type Assessment Date No Information Patient Care Teams Name Effective Dates (start - stop) Status Members No Information
--- OUTSIDE RECORDS SUMMARY | 2024-10-28 05:54 | XMS_ITS ---
Author Organization [facility] Address [address] [place], [place] [id number] Care Team Providers Care Hop Farm Worker Name Role Phone BIRD LOWERY Unavailable [phone] Lux Mejia Unavailable Unavailable REASON FOR VISIT *Post operative w/xrays Vital Signs Weight 190 lbs 08/13/2024 Weight-kg 86.18 kg 08/13/2024 Height 66.00 in 08/13/2024 Height-cm 167.64 cm 08/13/2024 BMI 30.66 kg/m2 08/13/2024 Encounters Encounter Location Date Provider Diagnosis [facility] [address] [place], [place] [id number] 08/13/2024 BIRD LOWERY Hallux valgus (acquired), left foot M20.12 ; Left foot pain M79.672 and Encounter for other specified surgical aftercare Z48.89 Assessments Encounter Date Diagnosis (ICD Code) Assessment Notes Treatment Notes Treatment Clinical Notes Section Notes 08/13/2024 Hallux valgus (acquired), left foot (ICD-10 - M20.12) Normal activities: Patient may return to normal activities as tolerated. 08/13/2024 Left foot pain (ICD-10 - M79.672) 08/13/2024 Encounter for other specified surgical aftercare (ICD-10 - Z48.89) Plan Of Treatment Treatment Notes Assessment Notes Hallux valgus (acquired), left foot Norm al activities: Patient may return to normal activities as tolerated. Progress Notes * KINA LENZDOB: [birth year] (54 yo F)Acc No.[id number]:08/13/2024 Patient: KINA ROLAND Provider: Boston Lowery DPM :1970 A ge:54 Y S ex:Female Date:08/13/2024 Address:[facility] [address] [address] Subjective: * Chief Complaints: * * Post operative w/xrays * HPI: H PI: Follow Up Visit P atient presents for follow up visit for a post operation of the left foot. Patient states their problem is, improving. Patient states she has tried going without the boot, but it is painful to do so. M A: ars. * ROS: G eneral / Constitutional: Patient denies c hills, fever. C ardiovascular: Patient denies c hest pain. * Medical History: * Surgical History: b unionectomy mastectomy appendectomy * Hospitalization/Major Diagno stic Procedure: * Family History: F ather: PRN - Father: :: Cancer,,known absent , :: Hypertension,,known absent . M other: PRN - Mother: :: Arthritis,,known absent . S ister: SIB - Sister: . * Social History: M igrated Social History: M igrated Social History: History of tobacco use : , Smoking Status : Never smoked , Alcohol intake :. * Medications: Objective: * Vitals: W t:190lbs, Wt-k.18 kg, Ht: 66.00 in, Ht-cm: 167.64 cm, BMI:30.66Index, Body Surface Area: 2. * Examination: P hysical Examination: Gen: T he patient is awake, alert, well developed, well groomed and well nourished. They are in no apparent distress. . Musc: T he pain is decreasing. Foot structure is normal. .? Derm: W ound clean and well approximated without drainage.?. Neuro: G rossly intact to light touch bilateral. . Vasc: D orsalis pedis and posterior tibial pulses 2+ bilaterally. Edema consistent with post-operative course noted. Capillary fill time < 3 seconds to all digits. Negative Joseph's sign . Dressing: D ressing is dry and intact. . ? X -Ray: LEFT FOOT X -rays reveal good correction of the deformities and position of the osteotomies. All hardware is in good position. . Assessment: * Assessment: 1. H allux valgus (acquired), left foot - M20.12 (Primary) 2 . L eft foot pain - M79.672 3 . E ncounter for other specified surgical aftercare - Z48.89? Plan: * Treatment: * Procedure Codes: 9 9024 POSTOP FOLLOW-UP VISIT * Billing Information: * Visit Code: * Procedure Codes: 57571 POSTOP FOLLOW-UP VISIT. * ELING RAMP ATTENDANT Sign off status: Completed true * Provider: Boston Lowery DPM Date: 0 08/13/2024 Generated for Bharath collins/Tan/Cherelle on: 0 10/28/2024 05:54 AM CDT History and Physical Notes * HPI (History of Present Illness) Category Sub-Category Detail Notes Category Not es HPI Follow Up Visit Patient presents for follow up visit for a post operation of the left foot. Patient states their problem is, improving. Patient states she has tried going without the boot, but it is painful to do so. MA: ars Examination Category Sub-Category Detail Notes Category Not es X-Ray LEFT FOOT X-rays reveal go od correction of the deformities and position of the osteotomies. All hardware is in good position. Physical Examination Gen: The patient is awake, alert, well developed, well groomed and well nourished. They are in no apparent distress. Vasc: Dorsalis pedis and p osterior tibial pulses 2+ bilaterally. Edema consistent with post-operative course noted. Capillary fill time < 3 seconds to all digits. Negative Joseph's sign Neuro: Grossly intact to li ght touch bilateral. Musc: The pain is decreasi ng. Foot structure is normal. Dressing: Dressing is dry and intact. Derm: Wound clean and well approximated without drainage.
--- OUTSIDE RECORDS SUMMARY | 2024-10-28 05:55 | XMS_ITS ---
Author Organization [facility] Address [address] [place], [place] [id number] Care Team Providers Care Structures Mechanic Name Role Phone BIRD LOWERY Unavailable [phone] Lux Mejia Unavailable Unavailable REASON FOR VISIT 1ST POST OP Vital Signs Weight 190 lbs 07/05/2024 Weight-kg 86.18 kg 07/05/2024 Height 66.00 in 07/05/2024 Height-cm 167.64 cm 07/05/2024 BMI 30.66 kg/m2 07/05/2024 Encounters Encounter Location Date Provider Diagnosis [facility] [address] [place], [place] [id number] 07/05/2024 BIRD LOWERY Hallux rigidus of left foot M20.22 ; Hallux rigidus of right foot M20.21 ; Left foot pain M79.672 and Encounter for other specified surgical aftercare Z48.89 Assessments Encounter Date Diagnosis (ICD Code) Assessment Notes Treatment Notes Treatment Clinical Notes Section Notes 07/05/2024 Hallux rigidus of left foot (ICD-10 - M20.22) 07/05/2024 Hallux rigidus of right foot (ICD-10 - M20.21) 07/05/2024 Left foot pain (ICD-10 - M79.672) 07/05/2024 Encounter for other specified surgical aftercare (ICD-10 - Z48.89) 07/05/2024 Other Dressing Change : The old dressing was removed. Utilizing aseptic technique, a new sterile compression dressing was applied. Patient was instructed to keep it dry and not remove it. Plan Of Treatment Treatment Notes Assessment Notes Other Dressing Change: The old dressing was removed. Utilizing aseptic technique, a new sterile compression dressing was applied. Patient was instructed to keep it dry and not remove it. Progress Notes * KINA LENZDOB: [birth year] (54 yo F)Acc No.[id number]:07/05/2024 Patient: KNIA ROLAND Provider: Boston Lowery DPM :1970 A ge:54 Y S ex:Female Date:07/05/2024 Address:[address] [place], [place] [address] [place] [id number] Subjective: * Chief Complaints: * 1 ST POST OP * HPI: H PI: Follow Up Visit P atient presents for follow-up visit for surgery on bilateral feet. Patient states she had to stop taking the pain medicine, so she is having some pain in her left foot, but no pain or problems with her right. Patient states their problem is improving. MA: sea. * ROS: G eneral / Constitutional: Patient [...] W ound clean and well approximated without drainage. Sutures are intact. . Neuro: G rossly intact to light touch bilateral. . Vasc: D orsalis pedis and posterior tibial pulses 2+ bilaterally. Edema consistent with post-operative course noted. Capillary fill time < 3 seconds to all digits. Negative Joseph's sign . Dressing: D ressing is dry and intact. . ? Assessment: * Assessment: 1. H allux rigidus of left foot - M20.22 (Primary) 2 . H allux rigidus of right foot - M20.21 3 . L eft foot pain - M79.672 4 . E ncounter for other specified surgical aftercare - Z48.89 Plan: * Treatment: * Procedure Codes: 9 9024 POSTOP FOLLOW-UP [id number] X-RAY EXAM OF FOOT, Modifiers: LT * Billing Information: * Visit Code: * Procedure Codes: 15677 POSTOP FOLLOW-UP VISIT. 91360 X-RAY EXAM OF FOOT. Modifiers: LT * Sign off status: Completed true * Provider: Boston Lowery DPM Date: 1 09/05/2023 Generated for Bharath collins/Tan/Cherelle on: 0 10/28/2024 05:55 AM CDT History and Physical Notes * HPI (History of Present Illness) Category Sub-Category Detail Notes Category Not es HPI Follow Up Visit Patient presents for follow-up visit for surgery on bilateral feet. Patient states she had to stop taking the pain medicine, so she is having some pain in her left foot, but no pain or problems with her right. Patient states their problem is improving. MA: sea Examination Category Sub-Category Detail Notes Category Not es Physical Examination Gen: The patient is awake, [...] Wound clean and well approximated without drainage. Sutures are intact.
--- OUTSIDE RECORDS SUMMARY | 2024-10-28 05:55 | XMS_ITS | Encounter Summary ---
Author Organization [facility] Address [address] [place] [address] [place] [address] Care Team Providers Care Inspection Supervisor Name Role Phone Unavailable Primary Care Provider Unavailabl e Encounter Details Date Type Department Care Team (Late st Contact Info) Description 08/14/2018 Lab Requisition [facility] Care DermPath Lab [address] [facility] [place] [address] Nancie Coyle MD [address] [facility] [address] [place] [address] Social History Tobacco Use Types Packs/Day Years Used Date Smoking Tobacco: Never Assessed Sex and Gender Information Value Date Recorded Sex Assigned at Not on file Gender Identity Not on file Sexual Orientation Not on file documented as of this encounter Plan of Treatment Not on file documented as of this encounter Procedures Procedure Name Priority Date/Time Associated Diagnosis Comments DERMATOPATH TECHNICAL REPORT Routine 08/10/2018 12:00 AM QUALITY ASSURANCE TEST PROGRAM MANAGER documented in this encounter Results * DERMATOPATH TECHNICAL REPORT (08/10/2018 12:00 AM QUALITY ASSURANCE TEST PROGRAM MANAGER) Case Report Dermatopathology Report Case: [id number] Authorizing Provider: Nancie Coyle MD Collected: 08/10/2018 12:00 AM Pathologist: Janet Galeano MD Received: 08/14/2018 08:00 AM Specimens: A) - Skin, post neck B) - Skin, right pop fossa 9 12:02 PM QUALITY ASSURANCE TEST PROGRAM MANAGER DERMATOPATHOLOGY LABORATORY Clinical History A-B: R/O nevus, irritated pink papule. 9 12:02 PM QUALITY ASSURANCE TEST PROGRAM MANAGER DERMATOPATHOLOGY LABORATORY Gross Description Specimen A: Received is one formalin filled container labeled with the patient's name and designated post neck. The specimen consists of a shave measuring [id number]. Jar 0. Specimen B: Received is one formalin filled container labeled with the patient's name and designated right pop fossa. The specimen consists of a shave measuring [id number]. Jar 0. [facility] Dermatopathology Laboratory performed the technical component only. 12:02 PM [facility] DERMATOPATHOLOGY LABORATORY Embedded Images 12:02 PM [facility] DERMATOPATHOLOGY LABORATORY DISCLAIMER An external and internal positive and negative controls are appropriate for the histochemical, immunohistochemical and immunofluorescence stain(s) in this case (if any), except where stated explicitly. The performance characteristics of the stain(s) cited in this report were developed and its performance characteristic determined by the Dermatopathology Laboratory at [facility], directed by Dr. Sabine Royal. These tests need not be, and therefore are not, approved by the [place] Food and Drug Administration. The tests are used for clinical purposes. 12:02 PM [facility] DERMATOPATHOLOGY LABORATORY Pathology/Cytology TISSUE SPECIMEN FROM SKIN / Unknown 08/10/2018 08/14/2018 8:00 AM QUALITY ASSURANCE TEST PROGRAM MANAGER Miscellaneous samples (specimen) TISSUE SPECIMEN FROM SKIN / Unknown 08/10/2018 08/14/2018 8:00 AM QUALITY ASSURANCE TEST PROGRAM MANAGER Nancie Coyle MD LAB - PATHOLOGY/CYTO LOGY ORDERABLES DERMATOPATHOLOGY LABORATORY [facility] - Department of Dermatology [address] [place] [address] [address] Floor Lab [address] [place], [place] [address] [phone] documented in this encounter Visit Diagnoses Not on filedocumented in this encounter
--- OUTSIDE RECORDS SUMMARY | 2024-10-28 05:55 | XMS_ITS | Clinical Summary ---
Author Organization [facility] Address [address] [place] [address] Care Team Providers Care Bobbin Loose End Finder Name Role Phone Lux Mejia MD Primary Care Provider [phone] Allergies No known active allergies Medications buPROPion XL (WELLBUTRIN XL) 150 MG 24 hr tablet Take 1 tablet (150 mg total) by mouth daily. 07/29/2023 Active hydroCHLOROthiaz cheyanne (MICROZIDE) 12.5 MG tablet Take 1 tablet (12.5 mg total) by mouth daily. 07/29/2023 Active olmesartan (BENICAR) 40 MG tablet Take 1 tablet (40 mg total) by mouth daily. 07/29/2023 Active valACYclovir (VALTREX) 500 MG tablet Take 1 tablet (500 mg total) by mouth 2 (two) times daily. 04/27/2024 Active finasteride (PROSCAR) 5 MG tablet Take 1 tablet (5 mg total) by mouth nightly. Active Ferrous Gluconate (IRON 27 OR) Take 1 tablet by mouth daily. Active HYDROcodone-acet aminophen (NORCO) 5-325 MG tabletIndication s:Acute Pain < 7 Day Supply Take 1 tablet by mouth every 6 (six) hours as needed. Indications : Acute Pain < 7 Day Supply 21 tablet 06/29/2024 Active Family History Medical History Relation Comments Cancer Father lung, skin COPD Maternal Grandfather emphysema- smoker Stroke Maternal Grandmother Dementia Mother Cancer Paternal Grandmother breast Cancer Sister 1/2 sister Relation Status Comments Father Maternal Grandfather Maternal Grandmother Mother Paternal Grandmother Sister Social History Tobacco Use Types Packs/Day Years Used Date Smoking Tobacco: Never Smokeless Tobacco: Never Tobacco Cessation:Counseling Given: Not Answered Alcohol Use Standard Drinks/Week Comments Not Currently 0 (1 standard drink = 0.6 oz pur e alcohol) Comments No Sex and Gender Information Value Date Recorded Sex Assigned at Not on file Legal Sex Female 10:36 AM CDT Gender Identity Not on file Sexual Orientation Not on file Last Filed Vital Signs Vital Sign Reading Time Taken Comments Blood Pressure 132/70 06/29/2024 10:50 AM HAND POLISHER Pulse 77 06/29/2024 10:50 AM HAND POLISHER Temperature 36.2 C (97.1 F) 06/29/2024 10:50 AM HAND POLISHER Respiratory Rate 18 06/29/2024 10:50 AM HAND POLISHER Oxygen Saturation 98% 06/29/2024 10:50 AM HAND POLISHER Inhaled Oxygen Concentration - - Weight 88.6 kg (195 lb 5.2 oz) 06/29/2024 7:30 A M HAND POLISHER Height 168.9 cm (5' 6.5 ) 06/29/2024 7:30 AM HAND POLISHER Body Mass Index 31.05 06/29/2024 7:30 AM HAND POLISHER Plan of Treatment Health Maintenance Due Date Last Done Comments Cervical Cancer Screening Pap Smear (Age 30 to 64) Every 3 Years 1971 Colorectal Cancer Screening Colonoscopy (10 Years) 1971 Annual Physical 1974 Hepatitis C 1989 Hepatitis B Vaccines (1 of 3 - 19+ 3-dose series) 1990 Cervical Cancer Screening Pap with HPV Testing (Age 30 to 64) Every 5 Years 2001 Cervical Cancer Screening with HPV 2001 Mammogram Screening 2011 Zoster Vaccines (2 of 2) 02/23/2022 12/29/2021 DTaP, Tdap and Td Vaccines (2 - Td or Tdap) 02/19/2023 02/19/2013 COVID-19 Vaccine ( season) 2024 05/06/2022, 05/06/2022, 07/22/2021, Additional history exists Meningococcal B Vaccine Aged Out No l onger eligible based on patient's age to complete this topic Meningococcal Vaccine Aged Out No andrew tj eligible based on patient's age to complete this topic Pneumococcal Vaccine: Pediatrics (0 to 5 Years) and At-Risk Patients (6 to 64 Years) Aged Out No longer eligible based on patient's age to complete this topic RSV Immunizations Under 20 Months Aged Out No longer eligible based on patient's age to complete this topic Medical Devices Implanted Type Area Vp Emerging Media Device Identifier Shelf Expiration Date Model / Serial / Lot 3.0 X 24 Asnis Screw Implanted:Qty: 1 on 06/29/2024 by Herminio Lowery DPM at [facility] Screw Left: Foot [employer] [id number] / / Explanted Type Area Vp Emerging Media Device Identifier Shelf Expiration Date Model / Serial / Lot K-Wire 1.2mm X 100mm - [id number] Explanted:Qty: 1 on 06/29/2024 by Herminio Lowery DPM at [facility] Wire Left: Foot [employer] [id number] / / Insurance [facility] Care Teams Bobbin Loose End Finder Relationship Specialty Start Date End Date Lux Mejia MD [address] [address] [place] [address] PCP - General INTERNAL MEDICINE 06/19/24
--- OUTSIDE RECORDS SUMMARY | 2024-10-28 05:55 | XMS_ITS | Encounter Summary ---
Author Organization [facility] Address [address] [place] [address] Care Team Providers Care Computer Information Systems Instructor Name Role Phone Lux Mejia MD Primary Care Provider [phone] Reason for Visit * Reason Onset Date Comments DORYS Questions 10/16/2024 Encounter Details Date Type Department Care Team (Late st Contact Info) Description 10/16/2024 Telephone [facility] [address] [place] [address] [place] [address] Lux Mejia MD [address] [facility] [address] [place] [address] DORYS Questions Social History Tobacco Use Types Packs/Day Years Used Date Smoking Tobacco: Never Passive Smoke Exposure: Past Smokeless Tobacco: Never Alcohol Use Standard Drinks/Week Comments No 0 (1 standard drink = 0.6 oz pur e alcohol) AUDIT-C Answer Date Recorded Q1: How often do you have a drink containing alcohol? Never 10/15/2024 Q2: How many drinks containi ng alcohol do you have on a typical day when you are drinking? Patient does not drink Q3: How often do you have si x or more drinks on one occasion? Never 10/15/2024 PHQ-2 Answer Date Recorded PHQ-2 Total Score (If total score is 3 or more points, staff should administer the PHQ-9) 0 10/18/2024 Personal Safety Answer Date Recorded Have you ever been in or are you currently in a harmful physical or emotional relationship or is someone making you feel afraid or unsafe? Denies 10/15/2024 Comments No Sex and Gender Information Value Date Recorded Sex Assigned at Not on file Legal Sex Female 1:24 AM FOOD TASTER Gender Identity Not on file Sexual Orientation Not on file documented as of this encounter Miscellaneous Notes * Telephone Encounter - Minad Bermudez - 10/16/2024 8:51 AM CDT DORYS Questions (Message from [facility] Access Center-Energy Scheduler): Has patient been discharged at time of call? No Will patient be transferred to another inpatient facility (e.g. care home, inpatient rehab, etc.)? No The patient was not discharged at the time of the call. Patient will need to be contacted after discharge to complete remaining questions. Date Admitted: 10/15 Tentative Discharge Date: 10/16 Facility Admitted To: [facility] Date of DORYS Appointment: 10/25 Additional Comments: patient admitted for splenic artery aneurysm Does message need to be routed? Yes-Action Needed documented in this encounter Plan of Treatment Not on file documented as of this encounter Visit Diagnoses Not on filedocumented in this encounter Care Teams Computer Information Systems Instructor Relationship Specialty Start Date End Date Lux Mejia MD [id number] [place] [address] PCP - General Internal Medicine 01/29/21 documented as of this encounter
--- OUTSIDE RECORDS SUMMARY | 2024-10-28 05:55 | XMS_ITS | Clinical Summary ---
Author Organization [facility] on Address [address] [place] [address] Phone Care Team Providers Care Optical Brightener Maker Helper Name Role Phone Unavailable Primary Care Provider Unavailabl e Allergies No known active allergies Medications spironolactone (ALDACTONE) 25 mg Oral tablet Take 25 mg by mouth 2 times daily. Active FLUoxetine (PROZAC) 20 mg Oral capsule Take 20 mg by mouth 2 times daily. Active FLUoxetine (PROZAC) 10 mg Oral capsule Take 10 mg by mouth daily. Active olmesartan (BENICAR) 40 mg Oral tablet Take 40 mg by mouth daily. Active metFORMIN (GLUCOPHAGE) 500 mg Oral tablet Take 500 mg by mouth 2 times daily with meals. Active azithromycin (ZITHROMAX) 250 mg Oral tablet Take 2 tabs the first day and 1 tab days 2-5 1 Package 0 06/26/2011 Active Active Problems No known active problems Social History Tobacco Use Types Packs/Day Years Used Date Smoking Tobacco: Never Alcohol Use Standard Drinks/Week Comments No 0 (1 standard drink = 0.6 oz pur e alcohol) Comments Unknown Sex and Gender Information Value Date Recorded Sex Assigned at Not on file Legal Sex Female 6:06 AM SENIOR ESTIMATOR Gender Identity Not on file Sexual Orientation Not on file Last Filed Vital Signs Vital Sign Reading Time Taken Comments Blood Pressure 112/70 06/26/2011 12:39 PM SENIOR ESTIMATOR Pulse 93 06/26/2011 12:39 PM SENIOR ESTIMATOR Temperature 37.2 C (99 F) 06/26/2011 12:39 PM SENIOR ESTIMATOR Respiratory Rate 14 06/26/2011 12:39 PM SENIOR ESTIMATOR Oxygen Saturation 97% 06/26/2011 12:39 PM SENIOR ESTIMATOR Inhaled Oxygen Concentration - - Weight 83 kg (183 lb) 06/26/2011 12:39 PM SENIOR ESTIMATOR Height 167.6 cm (5' 6 ) 06/26/2011 12:39 PM SENIOR ESTIMATOR Body Mass Index 29.54 06/26/2011 12:39 PM SENIOR ESTIMATOR Plan of Treatment Health Maintenance Due Date Last Done Comments DTAP/TDAP/TD VACCINES (1 - Tdap) 1990 HEPATITIS B VACCINES (1 of 3 - 19+ 3-dose series) 01/22 HPV/Cotest (21-29) 02/04/1992 CERVICAL CANCER SCREENING 2001 HPV/Cotest (30-65) 2001 PAP SMEAR 2001 BREAST CANCER SCREENING 2011 COLORECTAL SCREENING 02/04/2016 Colorectal Cancer Screening 02/04/2016 FIT-DNA Q 3 years 02/04/2016 FIT/FOBT Q 1 year 02/04/2016 Flex Sig/CT Colonography Q 5 years 02/04/2016 ZOSTER VACCINE (1 of 2) 2021 INFLUENZA VACCINE (#1) 2024 Insurance
--- OUTSIDE RECORDS SUMMARY | 2024-10-28 05:55 | XMS_ITS | Clinical Summary ---
Author Organization [facility] Address [address] [place] [address] Phone Care Team Providers Care Key Carrier Name Role Phone Lux Mejia MD Primary Care Provider [phone] Allergies No known active allergies Medications hydroCHLOROthiazid e (HYDRODIURIL) 12.5 mg tablet Take 1 tablet (12.5 mg total) by mouth daily 90 tablet 3 07/29/19 24 Active ALPRAZolam (XANAX) 0.25 mg tabletIndications: anxiety Take 1 tablet (0.25 mg total) by mouth 3 (three) times a day as needed for anxiety 20 tablet 01/10/20 24 Active valACYclovir (VALTREX) 500 mg tablet TAKE 1 TABLET BY MOUTH TWICE A DAY 180 tablet 5 04/27/20 24 Active olmesartan (BENICAR) 40 mg tablet TAKE 1 TABLET BY MOUTH EVERY DAY 100 tablet 1 09/03/19 25 Active buPROPion XL (WELLBUTRIN XL) 300 mg 24 hr tablet TAKE 1 TABLET (300 MG TOTAL) BY MOUTH EVERY MORNING. 90 tablet 3 09/04/19 25 026 Active rosuvastatin (CRESTOR) 10 mg tablet Take 1 tablet (10 mg total) by mouth daily 30 tablet 11 09/17/19 25 026 Active finasteride (PROSCAR) 5 mg tabletIndications: Polycystic Ovarian Syndrome,hair thinning Take 1 tablet (5 mg total) by mouth nightly Active triamcinolone (NASACORT) 55 mcg nasal inhalerIndications :Allergic Rhinitis Administer 1 spray into each nostril nightly 08/06/19 Active psyllium seed, with sugar, (FIBER ORAL)Indications:c onstipation Take 2 tablets by mouth every morning Gummies Active melatonin 10 mg tabletIndications: sleep Take 1 tablet (10 mg total) by mouth nightly Active ferrous sulfate (IRON ORAL)Indications:s upplement Take 1 tablet by mouth every morning Active cholecalciferol, vitamin D3, (VITAMIN D3 ORAL)Indications:s upplement Take 1 tablet by mouth every morning Active oxyCODONE (ROXICODONE) 5 mg immediate release tabletIndications: Pain Take 1 tablet (5 mg total) by mouth every 4 (four) hours as needed for pain 8 tablet 10/17/19 Active acetaminophen 500 mg capsule Take 2 capsules (1,000 mg total) by mouth every 6 (six) hours 10/17/19 Active aspirin 81 mg enteric coated tablet Take 1 tablet (81 mg total) by mouth daily 90 tablet 10/17/19 25 Active polyethylene glycol (MIRALAX) 17 gram/dose bulk powderIndications: constipation Take 17 g by mouth daily 10/17/19 Active senna-docusate (PERICOLACE) 8.6-50 mg Take 1 tablet by mouth 2 (two) times a day 10/17/19 Active ondansetron ODT (ZOFRAN-ODT) 4 mg disintegrating tablet Take 1 tablet (4 mg total) by mouth every 4 (four) hours as needed for nausea or vomiting 12 tablet 10/17/19 Active meloxicam (MOBIC) 7.5 mg tablet Take 1 tablet (7.5 mg total) by mouth daily 30 tablet 11 10/19/19 25 026 Active gabapentin (NEURONTIN) 300 mg capsule Take 1 capsule (300 mg total) by mouth 3 (three) times a day 90 capsule 4 10/19/19 25 026 Active buPROPion XL (WELLBUTRIN XL) 150 mg 24 hr tabletIndications: Essential hypertension Take 1 tablet (150 mg total) by mouth every morning 90 tablet 3 10/19/19 25 Active buPROPion XL (WELLBUTRIN XL) 150 mg 24 hr tabletIndications: Essential hypertension Take 1 tablet (150 mg total) by mouth every morning 90 tablet 3 07/29/19 24 025 Discontinu ed(Alterna te therapy) nitrofurantoin monohydrate (MACROBID) 100 mg capsule TAKE 1 CAPSULE BY MOUTH EVERY DAY NEEDED 30 capsule 4 10/03/19 24 025 Discontinu ed(Stop Taking at Discharge) semaglutide (Ozempic) 0.25 mg or 0.5 mg(2 mg/1.5 mL) pen injector injectionIndicatio ns:Weight Loss Management for Obese Patient (BMI >= 30) Inject 0.25 mg under the skin once a week Takes on Sundays09/09/19 Discontinu ed(Therapy completed) methylPREDNISolone (MEDROL DOSEPACK) 4 mg Dosepack Take 1 tablet (4 mg total) by mouth Take as directed on package Discontinu ed(Stop Taking at Discharge) amoxicillin-clavul anate (AUGMENTIN) 875-125 mg per tablet Take 1 tablet by mouth 2 (two) times a day for 7 days 14 tablet 10/19/19 Active Problems Problem Noted Date Diagnosed Date Jaw pain 10/18/2024 Assessment & Plan (10/18/2024 11:05 AM CDT): Recent normal dental evaluation. Negative ENT evaluation in May. DDX; chronic sinusitis, trigeminal Neuralgia. Plan head CT. Await imaging. Monitor response to gabapentin. Start meloxicam. Sinus pain 10/18/2024 Assessment & Plan (10/18/2024 11:04 AM CDT): Monitor response to augmentin. Await CT scan. Bilateral impacted cerumen 10/18/2024 Assessment & Plan (10/18/2024 11:12 AM CDT): Follow with ENT Foot pain, bilateral 06/08/2024 Assessment & Plan (06/08/2024 11:22 AM FRONT DESK RECEPTIONIST): She has failed conservative treatment. Agree with Surgery. No further cardiac testing is necessary. Splenic artery aneurysm 07/29/2022 Assessment & Plan (10/15/2024 11:44 AM CDT): Patient discovered to have splenic artery aneurysm when getting workup for abdominal pain/diverticulitis. She is asymptomatic. -OR on 10/15 for splenic artery aneurysm repair -ADAT -void check, franco removed in the OR -started ASA -admit for obs Assessment & Plan (07/29/2023 12:46 PM FRONT DESK RECEPTIONIST): Order ultrasound. Physical exam 07/23/2021 Assessment & Plan (08/31/2024 9:36 AM FRONT DESK RECEPTIONIST): Reviewed diet and exercise goals. Await Annual labs. Reviewed immunization and screening status.Hypertension is controlled. Continue current regimen.She is due for colonoscopy in 2032. Follow with Neurology for TIERRA. Reviewed dietary modifications for GERD. Advise famtodine as needed for GERD. Reviewed diet and exercise for hyperlipidemia. Start rosuvastatin if LDL is still elevated. Order CTA with history of splenic aneurysm. Assessment & Plan (07/29/2023 1:09 PM FRONT DESK RECEPTIONIST): Reviewed diet and exercise goals. Await Annual labs. Reviewed immunization and screening status.Hypertension is controlled. Continue current regimen.She is due for colonoscopy in 2032. Follow with Neurology for TIERRA. Reviewed dietary modifications for GERD. Advise famtodine as needed. Assessment & Plan (07/29/2022 1:27 PM FRONT DESK RECEPTIONIST): Reviewed diet and exercise goals. Await Annual labs. Reviewed immunization and screening status.Hypertension is controlled. Continue current regimen. Advised cortisone OTC for rash. Order Cologuard for screening. Follow with Neurology for TIERRA. Refill valtrex. Assessment & Plan (07/23/2021 2:04 PM FRONT DESK RECEPTIONIST): Reviewed diet and exercise goals. Await Annual labs. Reviewed immunization and screening status.Hypertension is controlled. Continue current regimen. She is current on colonoscopy. Follow with Urology for recurrent UTI. Await renal US 07/29/21. Advised Shingrix. She is due for colonoscopy in 2025. Dysuria 07/13/2021 Assessment & Plan (07/13/2021 9:23 AM FRONT DESK RECEPTIONIST): Coitus associated. Reviewed normal urine culture. Refer to Urology. Advised macrobid before coitus. Follow with Gynecology. Treat new UTI with Cipro. Flank pain 07/13/2021 Assessment & Plan (07/13/2021 8:44 AM FRONT DESK RECEPTIONIST): ddx includes nephrolithiasis,mass. Renal ultrasound was ordered for 07/29/21. Corneal edema 08/28/2014 Overview (10/30/2016): Corneal edema History of bilateral mastectomy 08/28/2014 Overview (10/30/2016): H/O bilateral mastectomy Hypertension 08/27/2013 Overview (10/28/2016): Hypertension Assessment & Plan (10/18/2024 10:55 AM CDT): Hypertension is controlled. Continue current regimen. Assessment & Plan (10/15/2024 8:01 AM CDT): On HCTZ and olmesartan at home -restart home meds as able Assessment & Plan (06/08/2024 11:08 AM FRONT DESK RECEPTIONIST): Hypertension is controlled. Continue olmesartan and HCTZ. Assessment & Plan (07/13/2021 8:49 AM FRONT DESK RECEPTIONIST): Hypertension is controlled. Continue olmesartan and HCTZ. 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 Overview (10/28/2016): Breast cancer in situ Assessment & Plan (10/15/2024 8:01 AM CDT): S/p L mastectomy with lymph nodes removed -cont OP follow up Encounters Date Type Department Care Team Description 10/24/[address] [place] [phone] Lux Mejia MD 10/23/2024 1:22 PM CDT - 10/23/2024 11:59 PM CDT Hospital Encounter [facility] [address] [place] [phone] Lux Mejia MD Jaw pain Discharge Disposition: Discharge to home or self care 10/18/2024 11:00 AM CDT Office Visit [address] [place] [phone] Lux Mejia MD Sinus pain (Primary Dx); Jaw pain; Primary hypertension; Bilateral impacted cerumen; Essential hypertension 10/16/[address] [place] [phone] Lux Mejia MD DORYS Questions 10/15/2024 8:30 AM CDT - 10/15/2024 12:15 PM CDT Surgery [facility] Operating Room [address] [place] [address] Ulisses Omer MD PhD splenic artery endovascular repair with covered stent with left brachial cutdown 10/15/2024 8:27 AM CDT Anesthesia Event [facility] Operating [address] [place] [address] Kendy Roth MD PhD Nadia Mcdonald NP 10/15/2024 6:20 AM CDT - 10/16/2024 10:08 AM CDT Hospital Encounter [address] [place] [address] Ulisses Omer MD PhD Splenic artery aneurysm (Primary Dx) Discharge Disposition: Discharge to home or self care 10/09/2024 Telephone [facility] Vascular Surgery [facility] Medical Office Building [address] [place] [address] Ulisses Omer MD PhD 10/08/2024 Telephone [facility] Surgery [address] Floor [address] [place] [address] lUisses Omer MD PhD 10/02/2024 Orders Only [facility] Surgery [address] 1 [place] [address] Ulisses Omer MD PhD Splenic artery aneurysm (Primary Dx) 10/01/2024 3:00 PM CDT Office Visit [facility] Surgery [facility] 8th [place] [address] [place] [address] Ulisses Omer MD PhD Splenic artery aneurysm 09/17/2024 Orders Only [facility] [address] [place] [address] Lux Mejia MD Hyperlipidemia, unspecified hyperlipidemia type (Primary Dx); Splenic artery aneurysm; Therapeutic drug monitoring 09/14/2024 8:13 AM FRONT DESK RECEPTIONIST - 09/14/2024 11:59 PM FRONT DESK RECEPTIONIST Hospital Encounter [facility] [address] [place] [phone] Lux Mejia MD Splenic artery aneurysm Discharge Disposition: Discharge to home or self care 08/31/2024 10:00 AM FRONT DESK RECEPTIONIST Lab [facility] [address] [place] [phone] Physical exam 08/31/2024 9:30 AM FRONT DESK RECEPTIONIST Office Visit [facility] [address] [place] [address] [address] [place] [address] Lux Mejia MD Physical exam (Primary Dx); Splenic artery aneurysm from Last 3 Months Immunizations Immunization Administration Dates Next Due Influenza, Quadrivalent, Spl it, Preservative Free, Intramuscular 07/29/2022,07/13/2021,04/26/2020,05/23,06/07/2018 Influenza, Split 05/26/2011 Influenza, Trivalent, Cell Culture-based MDCK, Preservative Free, Antibiotic Free, Intramuscular 03/16/2024 Influenza, Trivalent, IM (MDV) 04/24/2013 Influenza, Trivalent, Preser vative Free, Intramuscular 12/21/2017(Deferred: Patient decision) Pfizer SARS-CoV-2 Monovalent Vaccination (12+ Yrs) PURPLE 07/22/2021 Pfizer Sars-Cov-2 Bivalent V accination (12+ YRS) 05/06/2022 Tdap 02/19/2013,02/19/2013 ZOSTER Recombinant 12/29/2021 Surgical History Surgery Date Site/Laterality Comments MASTECTOMY 07/25/2011 - 07/24/2012 Bilateral FEMUR SURGERY 07/25/1990 - 07/24/1991 Right shine placed CYSTECTOMY 05/25/2019 Right COLONOSCOPY x2, last one was 10/2022 HARDWARE REMOVAL 06/24/2024 - 07/24/2024 Right BUNIONECTOMY 07/25/2015 - 07/24/2016 Right KNEE ARTHROSCOPY 07/25/1987 - 07/24/1988 Right APPENDECTOMY 07/25/2010 - 07/24/2011 BREAST BIOPSY 05/25/2011 - 06/23/2011 Right BREAST SURGERY 07/25/2011 - 07/24/2012 Right tissue manager video games removed due to infection BREAST RECONSTRUCTION 07/25/2011 - 07/24/2012 Bilateral BREAST SURGERY 07/25/2011 - 07/24/2012 Bilateral nipple reconstruction CERVICAL BIOPSY several, last one was 2022 ABLATION 07/25/2022 - 07/24/2023 cervical Medical History Medical History Date Comments Hypertension Hypertension Depression Depression Hx Other Medical Bilateral maste ctomy Hx Other Medical broken femur wi th shine on right Hx Other Medical knee arthroscop y Hx Other Medical Appendectomy Malignant neoplasm of female breast (HCC) Malignant neoplasm of breast - [ RIGHT, s/p B mastectomy. Testing + LA, neg BRCA I/II ] (Added by TW Conv) Splenic artery aneurysm Sleep apnea Wears CPAP Family History Medical History Relation Name Comments Hypertension Father Hypertension; Lung cancer Father Cancer -lung; Depression Mother Depression; Breast cancer Other sister age unknown Fa danette history of Cancer -breast; Breast cancer Paternal Grandmother age un known Breast cancer Sister age unknown Ca ncer -breast; Relation Name Status Comments Father Mother Other sister Alive Paternal Grandmother Sister Social History Tobacco Use Types Packs/Day Years Used Date Smoking Tobacco: Never Passive Smoke Exposure: Past Smokeless Tobacco: Never Tobacco Cessation:Counseling Given: Not Answered Alcohol Use Standard Drinks/Week Comments No 0 [...] on file Legal Sex Female 1:24 AM FRONT DESK RECEPTIONIST Gender Identity Not on file Sexual Orientation Not on file Obstetrics History Last Filed Vital Signs Vital Sign Reading Time Taken Comments Blood Pressure 118/72 10/18/2024 10:39 AM CDT Pulse 80 10/18/2024 10:39 AM CDT Temperature 36.6 C (97.9 F) 10/18/2024 10:39 AM CDT Respiratory Rate 20 10/18/2024 10:39 AM CDT Oxygen Saturation 98% 10/18/2024 10:39 AM CDT Inhaled Oxygen Concentration - - Weight 85.3 kg (188 lb) 10/18/2024 10:39 AM CDT Height 165.1 cm (5' 5 ) 10/18/2024 10:39 AM CDT Body Mass Index 31.28 10/18/2024 10:39 AM CDT Plan of Treatment Health Maintenance Due Date Last Done Comments Cervical Cancer Screening 1971 Hepatitis C Screening 1971 Hepatitis B Screening 1989 Zoster Vaccine (2 of 2) 02/23/2022 12/29/2021 DTaP/Tdap/Td Vaccine (3 - Td or Tdap) 02/19/2023 02/19/2013, 02/19/2013 Covid-19 Vaccine ( - season) 2025 05/06/2022, 05/06/2022, 07/22/2021, Additional history exists Postponed from 03/25/2024 (Patient declined, but will receive in the future) Regular Well Visit/Exam 18-64 08/31/2025 08/31/2024, 07/29/2023, 07/29/2022, Additional history exists Depression Screening 10/18/2025 10/18/2024, 08/31/2024, 06/08/2024, Additional history exists Colon Cancer Screening-Colonoscopy 11/12/2032 11/12/2022, 09/23/2014 Influenza Vaccine Completed 03/16/2024, , 07/13/2021, Additional history exists Breast Cancer Screening-Mammogram Discontinued Pneumococcal vaccine <65 Aged Out No longer eligible based on patient's age to complete this topic Medical Devices Implanted Type Area Lean Leader Device Identifier Shelf Expiration Date Model / Serial / Lot [employer] Viabahn 6mm 6fr 5cm 120cm Delivery System Superficial Femoral [id number] - [id number] - [id number] Implanted:Qty: 1 on 10/15/2024 by Ulisses Omer MD PhD at [facility] Stent N/A: Splenic Artery [employer] [id number] 03/20/2027 [id number] / [id number] / Procedures Procedure Name Priority Date/Time Associated Diagnosis Comments CT HEAD WO CONTRAST Schedule Routine, Read Routine (OP Routine) 10/23/2024 2:26 PM CDT Jaw pain EGFR STAT 10/15/2024 3:58 PM CDT BASIC METABOLIC PANEL STAT 10/15/2024 3:58 PM CDT CBC WITHOUT DIFFERENTIAL Routine 10/15/2024 1:29 PM CDT POCT ACTIVATED CLOTTING TIME, LOW RANGE Routine 10/15/2024 11:19 AM CDT POCT ACTIVATED CLOTTING TIME, LOW RANGE Routine 10/15/2024 11:09 AM CDT FL FLUOROSCOPY < 1 HOUR IP Routine 10/15/2024 11:02 AM CDT POCT ACTIVATED CLOTTING TIME, LOW RANGE Routine 10/15/2024 10:40 AM CDT POCT ACTIVATED CLOTTING TIME, LOW RANGE Routine 10/15/2024 10:14 AM CDT POCT ACTIVATED CLOTTING TIME, LOW RANGE Routine 10/15/2024 10:05 AM CDT POCT ACTIVATED CLOTTING TIME, LOW RANGE Routine 10/15/2024 9:58 AM CDT TYPE AND SCREEN STAT 10/15/2024 9:55 AM CDT LA AN PROCEDURE PLACEHOLDER Routine 10/15/2024 9:15 AM CDT LA AN PROCEDURE PLACEHOLDER Routine 10/15/2024 9:15 AM CDT LA AN PROCEDURE PLACEHOLDER Routine 10/15/2024 9:15 AM CDT LA AN ELECTIVE ENDOTRACHEAL AIRWAY Routine 10/15/2024 9:15 AM CDT PLACEMENT RENAL ARTERY STENT 10/15/2024 8:32 AM CDT Splenic artery aneurysm POCT HCG, URINE Routine 10/15/2024 7:30 AM CDT CTA ABDOMEN Schedule Routine, Read Routine (OP Routine) 09/14/2024 9:17 AM FRONT DESK RECEPTIONIST Splenic artery aneurysm EGFR Routine 08/31/2024 10:20 AM FRONT DESK RECEPTIONIST Physical exam DIFFERENTIAL AUTO Routine 08/31/2024 10: 20 AM FRONT DESK RECEPTIONIST Physical exam HEMOGLOBIN A1C Routine 08/31/2024 10:20 AM FRONT DESK RECEPTIONIST Physical exam LIPID PANEL Routine 08/31/2024 10:20 AM FRONT DESK RECEPTIONIST Physical exam COMPREHENSIVE METABOLIC PANEL Routine 08/31/2024 10:20 AM FRONT DESK RECEPTIONIST Physical exam THYROID FUNCTION CASCADE Routine 08/31/2024 10:20 AM FRONT DESK RECEPTIONIST Physical exam CBC WITH AUTO DIFFERENTIAL Routine 08/31/2024 10:20 AM FRONT DESK RECEPTIONIST Physical exam COLONOSCOPY 11/12/2022 11:49 AM CDT from Last 3 Months or Most Recently Relevant to Health Maintenance Results * CT Head WO Contrast (10/23/2024 2:26 PM CDT) Anatomical Region Laterality Modality Head and Neck N/A Computed Tomogra phy 10/23/2024 2:41 PM CDT Impressions 10/23/2024 7:39 PM CDT 1. No acute intracranial process. 2. Mucosal thickening of the left maxillary sinus. Dictated by: Rajat Rain D.O. The radiology attending physician has personally reviewed this study, and had reviewed and/or edited this written report and agrees with it. Electronically signed by: Rimma Collins M.D. Narrative 10/23/2024 7:39 PM CDT EXAMINATION: CT head without contrast HISTORY: Jaw and sinus pain TECHNIQUE: CT of the head was performed with images acquired from skull base to vertex without intravenous contrast. COMPARISON: None Available. FINDINGS: There is no acute intracranial hemorrhage. Ventricles are of normal size and morphology. No mass effect or midline shift is present. The lazcano-white matter differentiation is normal. The visualized portions of the orbits are normal. The visualized portions of the mastoids are normal. Mucosal thickening of left maxillary sinus. No fractures are identified. Procedure Note Rimma Collins MD - 10/23/2024 EXAMINATION: CT head without contrast HISTORY: Jaw and sinus pain TECHNIQUE: CT of the head was performed with images acquired from skull base to vertex without intravenous contrast. COMPARISON: None Available. FINDINGS: There is no acute intracranial hemorrhage. Ventricles are of normal size and morphology. No mass effect or midline shift is present. The lazcano-white matter differentiation is normal. The visualized portions of the orbits are normal. The visualized portions of the mastoids are normal. Mucosal thickening of left maxillary sinus. No fractures are identified. IMPRESSION: 1. No acute intracranial process. 2. Mucosal thickening of the left maxillary sinus. Dictated by: Rajat Rain D.O. The radiology attending physician has personally reviewed this study, and had reviewed and/or edited this written report and agrees with it. Electronically signed by: Rimma Collins M.D. Lux Mejia MD IMG CT PROCEDURES Final Resul t * eGFR (10/15/2024 3:58 PM CDT) eGFR 74 >=60 mL/min/1. 73 m2 Comment: Interpretive Data Reference Interval Normal >/= 90 mL/min/1.73m2 Mildly decreased* 60 - 89 mL/min/1.73m2 Mildly to moderately decreased 45 - 59 mL/min/1.73m2 Moderately to severely decreased 30 - 44 mL/min/1.73m2 Severely decreased 15 - 29 mL/min/1.73m2 Kidney Failure < 15 mL/min/1.73m2 *Relative to young adult level Estimated glomerular filtration rate is determined by the 2020 CKD-EPI equation recommended by the National Kidney Foundation (A Unifying Approach to GFR Estimation: Recommendations of the NKF-ASK Task Force on Reassessing the Inclusion of Race in Diagnosing Kidney Disease, JASN 202). The CKD-EPI equation should not be used for patients with unstable renal function and has not been validated in children and those over 70. Current interpretive data was last reviewed 2021. Blood 10/15/2024 3:58 PM CDT 10/15/2024 4:20 PM CDT Ulisses Omer MD PhD LAB BLOOD ORDERABLES F inal Result Performing Organization Address City/[facility]/ZIP Co de Phone Number [facility] Department [place] [address] * Basic metabolic panel (10/15/2024 3:58 PM CDT) Pathologist [facility] Sodium 141 135 - 145 mmol/L Potassium, pl 4.4 3.3 - 4.9 mmol/L [facility] Chloride 102 97 - 110 mmol/L [facility] CO2 29 22 - 32 mmol/L [facility] Anion gap 10 2 - 15 mmol/L [facility] BUN 13 6 - 25 mg/dL [facility] Creatinine 0.92 0.60 - 1.10 mg/dL [facility] Glucose 119 70 - 199 mg/dL [facility] Comment: Interpretive Data Fasting glucose >/= 126 mg/dl is diagnostic for diabetes. Fasting is defined as no caloric intake for at least 8 hours. Fasting glucose between 100 mg/dl to 125 mg/dl is diagnostic of prediabetes. In a patient with classic symptoms of hyperglycemia or hyperglycemic crisis, a random glucose >/= 200 mg/dl is diagnostic for diabetes. In the absence of unequivocal hyperglycemia, results should be confirmed by repeat testing. The classification and Diagnosis of Diabetes Diabetes Care 2021; 46: S19-S40. Current interpretive data was last revised 2022. Calcium 9.0 8.5 - 10.3 mg/dL [facility] Blood 10/15/2024 3:58 PM CDT 10/15/2024 4:20 PM CDT Ulisses Omer MD PhD LAB BLOOD ORDERABLES F inal Result Performing Organization Address City/[facility]/ZIP Co de Phone Number [facility] [place] [address] * (ABNORMAL) CBC without differential (10/15/2024 1:29 PM CDT) Pathologist [facility] WBC 12.1(H) 3.8 - 9.9 K/cumm Hgb 13.2 11.9 - 15.5 g/dL [facility] Hct 37.5 35.6 - 45.5 % [facility] Plt 238 150 - 400 K/cumm [facility] MPV 8.9(L) 9.1 - 12.3 fL [facility] RBC 4.11 3.90 - 5.20 M/cumm [facility] MCV 91.2 81.3 - 96.4 fL [facility] MCH 32.1 27.1 - 33.3 pg [facility] MCHC 35.2 32.3 - 35.7 g/dL [facility] RDW CV 12.0 11.1 - 14.9 % [facility] RDW SD 39.8 35.7 - 48.1 fL [facility] NRBC abs 0.00 0.00 - 0.01 K/cumm [facility] Blood 10/15/2024 1:29 PM CDT 10/15/2024 1:38 PM CDT us Ulisses Omer MD PhD LAB BLOOD ORDERABLES F inal Result [facility] [place] [employer] [place] [address] * POCT Activated clotting time, low range (10/15/2024 11:19 AM CDT) [facility] ACT 128 123 - 168 sec POC Performer 13056 [facility] POC Device Number [id number] [facility] Blood 10/15/2024 11:1 9 AM CDT 10/15/2024 11:19 AM CDT Ulisses Omer MD PhD LAB POCT ORDERABLES - DEVICE Final Result [facility] [place] [place] [address] * (ABNORMAL) POCT Activated clotting time, low range (10/15/2024 11:09 AM CDT) ACT 236(H) 123 - 168 sec POC Performer 10121 [facility] POC Device Number [id number] [facility] Blood 10/15/2024 11:0 9 AM CDT 10/15/2024 11:09 AM CDT Ulisses Omer MD PhD LAB POCT ORDERABLES - DEVICE Final Result Performing Organization Address [facility] Co de Phone Number [facility] [place] [employer] [place] [address] * [place] Fluoroscopy < 1 Hour (10/15/2024 11:02 AM CDT) Narrative [facility] - 10/15/2024 11:03 AM CDT The images from this study are not interpreted by Radiology. Please refer to the physician's procedure / OR operative note. Ulisses Omer MD PhD IMG FLUOROSCOPY PROCED URES Final Result Performing Organization Address [facility] de Phone Number [facility] * (ABNORMAL) POCT Activated clotting time, low range (10/15/2024 10:40 AM CDT) ACT 292(H) 123 - 168 sec POC Performer [id number] [facility] POC Device Number [id number] [facility] Blood 10/15/2024 10:4 0 AM CDT 10/15/2024 10:40 AM CDT Ulisses Omer MD PhD LAB POCT ORDERABLES - DEVICE Final Result Performing Organization Address [facility] Co de Phone Number [facility] [place] [employer] [place] [address] * (ABNORMAL) POCT Activated clotting time, low range (10/15/2024 10:14 AM CDT) ACT 294(H) 123 - 168 sec POC Performer [id number] [facility] POC Device Number [id number] [facility] Blood 10/15/2024 10:1 4 AM CDT 10/15/2024 10:14 AM CDT us Ulisses Omer MD PhD LAB POCT ORDERABLES - DEVICE Final Result Performing Organization Address City/[facility]/ZIP Co de Phone Number [facility] [place] [place] [address] * (ABNORMAL) POCT Activated clotting time, low range (10/15/2024 10:05 AM CDT) ACT 239(H) 123 - 168 sec POC Performer [id number] [facility] POC Device Number [id number] [facility] Blood 10/15/2024 10:0 5 AM CDT 10/15/2024 10:05 AM CDT us Ulisses Omer MD PhD LAB POCT ORDERABLES - DEVICE Final Result Performing Organization Address City/[facility] Co de Phone Number [facility] [place] [place] [address] * POCT Activated clotting time, low range (10/15/2024 9:58 AM CDT) ACT 136 123 - 168 sec POC Performer [id number] [facility] POC Device Number [id number] [facility] Blood 10/15/2024 9:58 AM CDT 10/15/2024 9:58 AM CDT us Ulisses Omer MD PhD LAB POCT ORDERABLES - DEVICE Final Result Performing Organization Address City/[facility]/ZIP Co de Phone Number [facility] [place] [employer] [place] [address] * Type and screen (10/15/2024 9:55 AM CDT) ABO Rh AB Positive Suzy, indirect Negative [facility] Blood 10/15/2024 9:55 AM CDT 10/15/2024 10:22 AM CDT Narrative [facility] - 10/15/2024 11:20 AM CDT Has the patient had Daratumumab or Isatuximab in the past 6 months?->Unknown Kendy Roth MD PhD LAB BLOOD BANK TEST ORDERABLE S Final Result [facility] [place] [address] * LA AN PROCEDURE PLACEHOLDER (10/15/2024 9:15 AM CDT) Kandice Cedillo CRNA - 10/15/2024 9:15 AM CDT Kandice Schwarz CRNA 10/15/2024 9:15 AM Peripheral IV Catheter Patient location: OR Staff: Placed by: Anesthesiologist: Kendy Roth MD PhD Preprocedure prep: Prep solution: chlorhexadine PPE: gloves and provider hat/mask PIV line: Technique: palpatation and direct visualization Procedure details: good blood return and occlusive dressing applied Number of attempts: 1 Assessment: Events: patient tolerated procedure well with no complications Kendy Roth MD PhD ANESTHESIA ORDERABLES Final R esult * LA AN PROCEDURE PLACEHOLDER (10/15/2024 9:15 AM CDT) Kandice Cedillo CRNA - 10/15/2024 9:15 AM CDT Kandice Schwarz CRNA 10/15/2024 9:15 AM Arterial Line Patient location: OR Indication: continuous blood pressure monitoring and blood sampling needed Staff: Supervising provider: Kendy Roth MD PhD Placed by: PROCEDURE WRITER: Kandice Schwarz CRNA Procedure prep: Prep solution: chlorhexadine/alcohol Prep: provider hat/mask and sterile gloves Arterial line: Catheter size: 20 gauge Catheter length: 1 and 1/4 inch Catheter type: wire-guided catheter Site: radial artery Line secured: tape and Tegaderm Results: good waveform and good blood return Number of attempts: 1 Assessment: Events: patient tolerated procedure well with no complications Kendy Roth MD PhD ANESTHESIA ORDERABLES Final R esult * LA AN ELECTIVE ENDOTRACHEAL AIRWAY, LA AN PROCEDURE PLACEHOLDER (10/15/2024 9:15 AM CDT) Narrative Kandice Schwarz CRNA - 10/15/2024 9:15 AM CDT Kandice Schwarz CRNA 10/15/2024 9:15 AM Airway Patient location: pre-op Urgency: elective Indications for airway management: anesthesia Difficult airway: no Staff: Supervising provider: Kendy Roth MD PhD Placed by: PROCEDURE WRITER: Kandice Schwarz CRNA Emergent airway documentation: Risks and benefits discussed: yes Consent obtained: yes Consent given by: patient Airway prep: Preoxygenated: yes Patient position: sniffing MILS maintained throughout: yes Mask difficulty assessment: 0 - not attempted Spontaneous ventilation during airway: absent Sedation level during airway: GA Final airway details: Final airway type: endotracheal airway Tube type: ETT ETT size: 7.0 mm Cuffed: yes Technique used for successful ETT placement: video laryngoscopy Devices/Methods used in placement: stylet Insertion site: oral Blade type: Amaya Video blade type: Karishma Blade size: 3 Cormack-Lehane (direct): grade I - full view of glottis Cormack-Lehane (video): grade I - full view of glottis Cuff inflated with: air ETT to teeth: 21 cm Placement verified by: auscultation and CO2 detection Airway secured with: silk tape Number of attempts: 1 Planned trial extubation: yes Additional comments: Dentition as preop; no complications Kendy Roth MD PhD ANESTHESIA ORDERABLES Final R esult * POCT hCG, urine (10/15/2024 7:30 AM CDT) HCG, ur, POC Negative Negative Lot Number [id number] QC Backgroud Clear Acceptable QC Control Line Acceptable Urine 10/15/2024 7:30 AM CDT Nadia Mcdonald NP POINT OF CARE TEST ORDERABLES Final Result * CTA Abdomen (09/14/2024 9:17 AM FRONT DESK RECEPTIONIST) Anatomical Region Laterality Modality Abdomen N/A Computed Tomogra phy 09/14/2024 10:5 3 AM FRONT DESK RECEPTIONIST Impressions 09/14/2024 11:13 AM FRONT DESK RECEPTIONIST 1. 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 2. No acute findings in the abdomen. Dictated by: Vasquez Briseno M.D. The radiology attending physician has personally reviewed this study, and had reviewed and/or edited this written report and agrees with it. Electronically signed by: Sky Hamlin M.D. Narrative 09/14/2024 11:13 AM FRONT DESK RECEPTIONIST EXAMINATION: CT ANGIOGRAPHY OF THE ABDOMEN WITH AND WITHOUT CONTRAST HISTORY: Splenic artery aneurysm TECHNIQUE: CT angiography of the abdomen was performed prior to and following the uneventful intravenous administration of 92 ml Optiray-350 using the abdomen angiography protocol. Vascular 3D images were generated on a dedicated workstation and also interpreted. COMPARISON: 01/01/2020 CT FINDINGS: VASCULAR FINDINGS: Interval increase in size of a splenic artery aneurysm abutting the pancreatic tail measuring up to 1.7 x 1.2 cm (series 4 image 103), previously 1.3 x 1.0 cm on 01/01/2020. Replaced right and left hepatic arteries. Abdominal aorta and proximal iliac arteries are normal in course and caliber. Celiac, splenic, superior mesenteric, inferior mesenteric, and bilateral renal arteries are patent. Portal and hepatic veins are patent. NONVASCULAR FINDINGS: Normal arterial phase appearance of the liver, spleen, pancreas, right adrenal gland, and gallbladder. Thickening of the left adrenal gland, which maintains its adreniform shape. No biliary ductal dilatation. No focal hepatic lesions. Kidneys enhance symmetrically without hydronephrosis. Imaged portions of the colon and small bowel are normal in course and caliber. Colonic diverticulosis without evidence of diverticulitis. No abdominal free fluid or gas. No abdominal lymphadenopathy. No suspicious osseous lesions. Bilateral breast implants. Heart size is normal. Lung bases are clear. Procedure Note Sky Hamlin MD PhD - 09/14/2024 EXAMINATION: CT ANGIOGRAPHY OF THE ABDOMEN WITH AND WITHOUT CONTRAST HISTORY: Splenic artery aneurysm TECHNIQUE: CT angiography of the abdomen was performed prior to and following the uneventful intravenous administration of 92 ml Optiray-350 using the abdomen angiography protocol. Vascular 3D images were generated on a dedicated workstation and also interpreted. COMPARISON: 01/01/2020 CT FINDINGS: VASCULAR FINDINGS: Interval increase in size of a splenic artery aneurysm abutting the pancreatic tail measuring up to 1.7 x 1.2 cm (series 4 image 103), previously 1.3 x 1.0 cm on 01/01/2020. Replaced right and left hepatic arteries. Abdominal aorta and proximal iliac arteries are normal in course and caliber. Celiac, splenic, superior mesenteric, inferior mesenteric, and bilateral renal arteries are patent. Portal and hepatic veins are patent. NONVASCULAR FINDINGS: Normal arterial phase appearance of the liver, spleen, pancreas, right adrenal gland, and gallbladder. Thickening of the left adrenal gland, which maintains its adreniform shape. No biliary ductal dilatation. No focal hepatic lesions. Kidneys enhance symmetrically without hydronephrosis. Imaged portions of the colon and small bowel are normal in course and caliber. Colonic diverticulosis without evidence of diverticulitis. No abdominal free fluid or gas. No abdominal lymphadenopathy. No suspicious osseous lesions. Bilateral breast implants. Heart size is normal. Lung bases are clear. IMPRESSION: 1. 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 2. No acute findings in the abdomen. Dictated by: Vasquez Briseno M.D. The radiology attending physician has personally reviewed this study, and had reviewed and/or edited this written report and agrees with it. Electronically signed by: Sky Hamlin M.D. uLx Mejia MD IM CT PROCEDURES Final Resul t * eGFR (08/31/2024 10:20 AM FRONT DESK RECEPTIONIST) eGFR 76 >=60 mL/min/1. 73 m2 Comment: Interpretive Data Reference Interval Normal >/= 90 mL/min/1.73m2 Mildly decreased* 60 - 89 mL/min/1.73m2 Mildly to moderately decreased 45 - 59 mL/min/1.73m2 Moderately to severely decreased 30 - 44 mL/min/1.73m2 Severely decreased 15 - 29 mL/min/1.73m2 Kidney Failure < 15 mL/min/1.73m2 *Relative to young adult level Estimated glomerular filtration rate is determined by the 2020 CKD-EPI equation recommended by the National Kidney Foundation (A Unifying Approach to GFR Estimation: Recommendations of the NKF-ASK Task Force on Reassessing the Inclusion of Race in Diagnosing Kidney Disease, JASN 2020). The CKD-EPI equation should not be used for patients with unstable renal function and has not been validated in children and those over 70. Current interpretive data was last reviewed 2021. Blood 08/31/2024 10:2 0 AM FRONT DESK RECEPTIONIST 08/31/2024 10:33 AM FRONT DESK RECEPTIONIST Lux Mejia MD LAB BLOOD ORDERABLES Final Re sult [facility] [place] [address] * Differential, auto (08/31/2024 10:20 AM FRONT DESK RECEPTIONIST) Neutrophil abs 3.8 1.5 - 6.5 K/cumm Imm gran abs 0.0 0.0 - 0.1 K/cumm [facility] Lymphocyte abs 2.3 0.8 - 3.3 K/cumm [facility] Monocyte abs 0.4 0.2 - 0.8 K/cumm [facility] Eosinophil abs 0.3 0.0 - 0.5 K/cumm [facility] Basophil abs 0.1 0.0 - 0.1 K/cumm [facility] Neutrophil pct 54.7 % [facility] Comment: Interpretive Data Percent cell count reference ranges are not reported, since discordance with absolute values may lead to misinterpretation of CBC data. Current Interpretive Data was last revised on 2017. Imm gran pct 0.3 % [facility] Comment: Interpretive Data Percent cell count reference ranges are not reported, since discordance with absolute values may lead to misinterpretation of CBC data. Current Interpretive Data was last revised on 2017. Lymphocyte pct 34.0 % [facility] Comment: Interpretive Data Percent cell count reference ranges are not reported, since discordance with absolute values may lead to misinterpretation of CBC data. Current Interpretive Data was last revised on 2017. Monocyte pct 5.4 % [facility] Comment: Interpretive Data Percent cell count reference ranges are not reported, since discordance with absolute values may lead to misinterpretation of CBC data. Current Interpretive Data was last revised on 2017. Eosinophil pct 4.9 % [facility] Comment: Interpretive Data Percent cell count reference ranges are not reported, since discordance with absolute values may lead to misinterpretation of CBC data. Current Interpretive Data was last revised on 2017. Basophil pct 0.7 % [facility] Comment: Interpretive Data Percent cell count reference ranges are not reported, since discordance with absolute values may lead to misinterpretation of CBC data. Current Interpretive Data was last revised on 2017. Blood 08/31/2024 10:2 0 AM FRONT DESK RECEPTIONIST 08/31/2024 10:29 AM FRONT DESK RECEPTIONIST Lux Mejia MD LAB BLOOD ORDERABLES Final Re sult Performing Organization Address [facility] de Phone Number [facility] [place] [employer] [place] [address] * Thyroid Function [place] (08/31/2024 10:20 AM FRONT DESK RECEPTIONIST) TSH 2.61 0.30 - 4.20 mcIUnit/mL Blood 08/31/2024 10:2 0 AM FRONT DESK RECEPTIONIST 08/31/2024 10:29 AM FRONT DESK RECEPTIONIST Lux Mejia MD LAB BLOOD ORDERABLES Final Re sult Performing Organization Address [facility] Co de Phone Number [facility] [place] [address] * (ABNORMAL) CBC with auto differential (08/31/2024 10:20 AM FRONT DESK RECEPTIONIST) [facility] WBC 6.9 3.8 - 9.9 K/cumm Hgb 14.3 11.9 - 15.5 g/dL [facility] Hct 39.8 35.6 - 45.5 % [facility] Plt 351 150 - 400 K/cumm [facility] MPV 9.1 9.1 - 12.3 fL [facility] RBC 4.37 3.90 - 5.20 M/cumm [facility] MCV 91.1 81.3 - 96.4 fL [facility] MCH 32.7 27.1 - 33.3 pg [facility] MCHC 35.9(H) 32.3 - 35.7 g/dL [facility] RDW CV 12.4 11.1 - 14.9 % [facility] RDW SD 41.0 35.7 - 48.1 fL [facility] NRBC abs 0.00 0.00 - 0.01 K/cumm [facility] Blood 08/31/2024 10:2 0 AM FRONT DESK RECEPTIONIST 08/31/2024 10:29 AM FRONT DESK RECEPTIONIST Lux Mejia MD LAB BLOOD ORDERABLES Final Re sult [facility] [place] [address] * Hemoglobin A1c (08/31/2024 10:20 AM FRONT DESK RECEPTIONIST) [facility] Hgb A1C 5.0 4.0 - 5.6 % Estimated Average Glucose 97 mg/dL [facility] Comment: The ADA recommends reporting an estimated Average Glucose (eAG) with all Hemoglobin A1c results using the equation derived from a study of 507 normal and diabetic adults. Minority populations were underrepresented and children were not included. (Diabetes Care 2020; 43(S1): S66-S76). The eAG is not equivalent to a fasting glucose. Blood 08/31/2024 10:2 0 AM FRONT DESK RECEPTIONIST 08/31/2024 10:29 AM FRONT DESK RECEPTIONIST us Lux Mejia MD LAB BLOOD ORDERABLES Final Re sult [facility] [place] [address] * (ABNORMAL) Lipid panel (08/31/2024 10:20 AM FRONT DESK RECEPTIONIST) Cholesterol 253(H) 30 - 199 mg/dL Comment: Interpretive Data Ages < or = 19 years Acceptable: <170 mg/dL Borderline high: 170-199 mg/dL High: >or= 200 mg/dL Ages > or = 20 years Desirable: <200 mg/dL Borderline high: 200-239 mg/dL High: >or= 240 mg/dL Literature References: 1. Expert Panel on Integrated Guidelines for Cardiovascular Health and Risk Reduction in Children and Adolescents. Pediatrics 2011;128:S213 2. NCEP Expert Panel. Circulation 2004;110:227 Current Interpretive Data was last revised on 2018. Triglycerides 148 <=149 mg/dL [facility] Comment: Interpretive Data Ages < or = 9 years Acceptable: <75 mg/dL Borderline high: 75-99 mg/dL High: >or= 100 mg/dL Ages 10 to 20 years Acceptable: <90 mg/dL Borderline high: 90-129 mg/dL High: >or= 130 mg/dL Ages > or = 20 years Desirable: <150 mg/dL Borderline high: 150-199 mg/dL High: 200-499 mg/dL Very high: >or= 499 mg/dL Literature References: 1. Expert Panel on Integrated Guidelines for Cardiovascular Health and Risk Reduction in Children and Adolescents. Pediatrics 2011;128:S213 2. NCEP Expert Panel. Circulation 2004;110:227 Current Interpretive Data was last revised on 2018. HDL 54 >=40 mg/dL [facility] Comment: Interpretive Data Ages < or = 19 years Acceptable: >45 mg/dL Borderline low: 40-45 mg/dL Low: <40 mg/dL Ages > or = 20 years Desirable: >or= 60 mg/dL Low: <40 mg/dL Literature References: 1. Expert Panel on Integrated Guidelines for Cardiovascular Health and Risk Reduction in Children and Adolescents. Pediatrics 2011;128:S213 2. NCEP Expert Panel. Circulation 2004;110:227 Current Interpretive Data was last revised on 2018. LDL, calculated 172(H) <=129 mg/dL [facility] Comment: Interpretive Data Ages < or = 19 years Acceptable: <110 mg/dL Borderline high: 110-129 mg/dL High: >or= 130 mg/dL Ages > or = 20 years Optimal: <100 mg/dL Near optimal: 100-129 mg/dL Borderline high: 130-159 mg/dL High: >160 mg/dL Calculated using the Miguel Ángel LDL-C estimating equation. This equation was implemented on 2024. Prior to this date LDL-C was estimated using the Friedewald equation. Literature References: 1. Expert Panel on Integrated Guidelines for Cardiovascular Health and Risk Reduction in Children and Adolescents. Pediatrics 2011;128:S213 2. NCEP Expert Panel. Circulation 2004;110:227 3. Miguel Ángel Vee et al. APOORVA Cardiol. 2019November 22;5(5):540-548. doi: 10.1001/[email or web address].2020.0013 Current Interpretive Data was last revised on 2024. Non-HDL Cholesterol 199 mg/dL [facility] Comment: Interpretive Data Ages < or = 19 years Acceptable: <120 mg/dL Borderline high: 120-144 mg/dL High: >145 mg/dL Ages > or = 20 years When triglycerides are >200 mg/dL, Non-HDL cholesterol is a secondary target of therapy with treatment goals that are 30 mg/dL greater than the LDL cholesterol target. Literature References: 1. Expert Panel on Integrated Guidelines for Cardiovascular Health and Risk Reduction in Children and Adolescents. Pediatrics 2011;128:S213 2. NCEP Expert Panel. Circulation 2004;110:227 Current Interpretive Data was last revised on 2018. Chol/HDL ratio 5 [facility] Blood 08/31/2024 10:2 0 AM FRONT DESK RECEPTIONIST 08/31/2024 10:29 AM FRONT DESK RECEPTIONIST us Lux Mejia MD LAB BLOOD ORDERABLES Final Re sult [facility] [place] [address] * Comprehensive metabolic panel (08/31/2024 10:20 AM FRONT DESK RECEPTIONIST) Sodium 139 135 - 145 mmol/L Potassium, pl 3.8 3.3 - 4.9 mmol/L [facility] Chloride 102 97 - 110 mmol/L [facility] CO2 29 22 - 32 mmol/L [facility] Anion gap 8 2 - 15 mmol/L [facility] BUN 16 6 - 25 mg/dL [facility] Creatinine 0.90 0.60 - 1.10 mg/dL [facility] Glucose 103 70 - 199 mg/dL [facility] Comment: Interpretive Data Fasting glucose >/= 126 mg/dl is diagnostic for diabetes. Fasting is defined as no caloric intake for at least 8 hours. Fasting glucose between 100 mg/dl to 125 mg/dl is diagnostic of prediabetes. In a patient with classic symptoms of hyperglycemia or hyperglycemic crisis, a random glucose >/= 200 mg/dl is diagnostic for diabetes. In the absence of unequivocal hyperglycemia, results should be confirmed by repeat testing. The classification and Diagnosis of Diabetes Diabetes Care 202; 46: S19-S40. Current interpretive data was last revised 2022. Calcium 9.4 8.5 - 10.3 mg/dL [facility] Bilirubin, total 0.4 0.1 - 1.2 mg/dL [facility] Protein, pl 7.3 6.5 - 8.5 g/dL [facility] Albumin 4.5 3.5 - 5.0 g/dL [facility] Alk phos 78 40 - 130 Units/L [facility] ALT 23 7 - 45 Units/L [facility] AST 28 10 - 45 Units/L [facility] Blood 08/31/2024 10:2 0 AM FRONT DESK RECEPTIONIST 08/31/2024 10:29 AM FRONT DESK RECEPTIONIST Lux Mejia MD LAB BLOOD ORDERABLES Final Re sult [facility] [place] [address] * COLONOSCOPY (11/12/2022 11:49 AM CDT) Anatomical Region Laterality Modality Other Narrative Procedure Note Paresh Ledbetter MD - 11/12/2022 11:49 AM CDT [facility] Patient Name: Nancie Lenz Procedure Date: 11/12/2022 11:49 AM Date of : 1970 Admit Type: Outpatient Age: 52 Gender: Female Attending MD: Paresh Ledbetter M.D. Room: [facility] ENDOSCOPY ROOM 9 Note Status: Finalized Procedure: Colonoscopy Indications: Screening for colorectal malignant neoplasm, Incidental - Positive Cologuard test Referring MD: Lux Mejia M.D. Providers: Paresh Ledbetter M.D. Medicines: Monitored Anesthesia Care Complications: No immediate complications. Estimated Blood Loss: Estimated blood loss: none. Procedure: Pre-Anesthesia Assessment: - Immediately prior to administration ofmedications, the patient was re-assessed for adequacy to receive sedatives. - The risks and benefits of the procedure and the sedation options and risks were discussed with the patient. All questions were answered and informed consent was obtained. The benefits, risks and alternatives of theprocedure and sedation were discussed and informed consentwas obtained. All questions were answered. Please referto the signed informed consent document in the medical record. The scope was passed under direct vision.The [id number] endoscope was introduced through the anus and advanced to the cecum, identified by appendiceal orifice and ileocecal valve. The colonoscopy was performed without difficulty. The patient tolerated the procedure well. The qualityof the bowel preparation was evaluated using the BBPS ([place] Bowel Preparation Scale) with scores of:Right Colon = 3, Transverse Colon = 3 and Left Colon = 3 (entire mucosa seen well with no residual staining, small fragments of stool or opaque liquid). Thetotal BBPS score equals 9. The bowel preparation used was NuLytely via split dose instruction. The quality of the bowel preparation was adequate. Findings: The digital rectal exam was normal. Scattered medium-mouthed diverticula were found in the entirecolon. Internal hemorrhoids were found during retroflexion. The hemorrhoids were small. The exam was otherwise without abnormality. Impression: - Diverticulosis in the entire examined colon. - Internal hemorrhoids. - The examination was otherwise normal. - No specimens collected. Recommendation: - Repeat colonoscopy in 10 years for screening purposes. - Increase fiber in diet to prevent diverticulosis from worsening. Eat more fruits and vegetables, and consider also using a fiber supplement such as Benefiber or Metamucil. Attending Participation: I personally performed the entire procedure. Electronically signed by Paresh Ledbetter MD Paresh Ledbetter M.D. 11/12/2022 12:14:31 PM . Number of Addenda: 0 Note Initiated On: 11/12/2022 11:49 AM Recognized by the [place] [employer] for promoting quality in endoscopy us Paresh Ledbetter MD ENDOSCOPY PROCEDURES Final Re sult from Last 3 Months or Most Recently Relevant to Health Maintenance Insurance [place] CHO[place] Advance Directives For more information, please contact: [phone] * Full Code (Latest Code Status on File) Date Activated Date Inactivated Comments 10/15/2024 4:33 PM 10/16/2024 2:08 PM * Full Code Date Activated Date Inactivated Comments 11/12/2022 10:23 AM 11/12/2022 5:03 PM Care Teams Key Carrier Relationship Specialty Start Date End Date Lux Mejia MD [address] [address] PCP - General Internal Medicine 01/29/21
--- OUTSIDE RECORDS SUMMARY | 2024-10-28 05:55 | XMS_ITS ---
Author Organization [facility] Address [address] [place], [place] [address] Care Team Providers Care Apparel Cutter Name Role Phone YUNGBIRD BUSTAMANTE Unavailable [phone] Lux Mejia Unavailable Unavailable REASON FOR VISIT *Post operative w/xrays Vital Signs Weight 190 lbs 07/12/2024 Weight-kg 86.18 kg 07/12/2024 Height 66.00 in 07/12/2024 Height-cm 167.64 cm 07/12/2024 BMI 30.66 kg/m2 07/12/2024 Encounters Encounter Location Date Provider Diagnosis [facility] [address] [place], [place] [id number] 07/12/2024 BIRD DELANEY Hallux valgus (acquired), left foot M20.12 ; Left foot pain M79.672 and Encounter for other specified surgical aftercare Z48.89 Assessments Encounter Date Diagnosis (ICD Code) Assessment Notes Treatment Notes Treatment Clinical Notes Section Notes 07/12/2024 Hallux valgus (acquired), left foot (ICD-10 - M20.12) 07/12/2024 Left foot pain (ICD-10 - M79.672) 07/12/2024 Encounter for other specified surgical aftercare (ICD-10 - Z48.89) 07/12/2024 Other Suture Removal: The sutures were removed. Shoes: Patient may return to normal shoes as tolerated. Plan Of Treatment Treatment Notes Assessment Notes Other Suture Removal: The sutures were removed. Shoes: Patient may return to normal shoes as tolerated. Progress Notes * KINA LENZDOB: [birth year] (54 yo F)Acc No.[id number]:07/12/2024 Patient: KINA ROLAND Provider: Boston Lowery DPM :1970 A ge:54 Y S ex:Female Date:07/12/2024 Address:[address] [place] [address] [place] [address] Subjective: * Chief Complaints: * * Post operative w/xrays * HPI: H PI: Follow Up Visit P atdouglas presents for follow-up visit for surgery on bilateral feet. She states her right foot is great. She is not having any pain or problems. She states she is not sure if she should be putting weight on her left foot, but she has tried a little and it hurts. Besides that she is not having any problems. Patient states their problem is improving. MA: [...] * Procedure Codes: 9 9024 POSTOP FOLLOW-UP [id number] X-RAY EXAM OF FOOT, Modifiers: LT * Billing Information: * Visit Code: * Procedure Codes: 76806 POSTOP FOLLOW-UP VISIT. 13528 X-RAY EXAM OF FOOT. Modifiers: LT * Sign off status: Completed true * Provider: Boston Lowery DPM Date: 09/12/2023 Generated for Bharath collins/Tan/Alenaitting on: 0 10/28/2024 05:54 AM CDT History and Physical Notes * HPI (History of Present Illness) Category Sub-Category Detail Notes Category Not es HPI Follow Up Visit Patient presents for follow-up visit for surgery on bilateral feet. She states her right foot is great. She is not having any pain or problems. She states she is not sure if she should be putting weight on her left foot, but she has tried a little and it hurts. Besides that she is not having any problems. Patient states their problem is improving. MA: [...]
--- OUTSIDE RECORDS SUMMARY | 2024-10-28 05:55 | XMS_ITS | Clinical Summary ---
Author Organization [facility] [employer] Address [address] [place] [address] Care Team Providers Care Damage Inside Adjuster Name Role Phone Unavailable Primary Care Provider Unavailabl e Source Comments [facility] [employer],non-owned Affiliates and Associated Physician Practices is amultiple site organization consisting of ambulatory clinics and hospital sitesin [place], [place], [place] and [place]. This disclosure is being madepursuant to the Care Everywhere program and may not contain all information available regarding this patient. Last updated 18.[facility] [employer] Social History Tobacco Use Types Packs/Day Years Used Date Smoking Tobacco: Never Assessed Sex and Gender Information Value Date Recorded Sex Assigned at Not on file Gender Identity Not on file Sexual Orientation Not on file Plan of Treatment Health Maintenance Due Date Last Done Comments COLOGUARD (AGES 45-75) - COL ON CA SCREENING 1971 COLON MONITORING 1971 COLONOSCOPY - COLON CA SCREENING 1971 CT COLONOGRAPHY - COLON CA SCREENING 1971 Colorectal Cancer Screening 1971 FIT - COLON CA SCREENING 1971 FLEX SIG - COLON CA SCREENING 1971 LIPID TESTING 1971 MAMMOGRAM 1971 HIV SCREENING 1986 HEPATITIS C SCREENING 01/29/1989 DTAP/TDAP/TD VACCINES (1 - Tdap) 1990 HEPATITIS B VACCINE (1 of 3 - 19+ 3-dose series) 1990 PAP with HPV 2001 PNEUMOCOCCAL VACCINE 50+ (1 of 1 - PCV) 2021 ZOSTER VACCINE (1 of 2) 2021 COVID-19 VACCINE ( - 2023-2 5 season) 2024 INFLUENZA VACCINE (#1) 2024 DEPRESSION SCREENING 07/25/2024 HIB VACCINE Aged Out No longer eligi ble based on patient's age to complete this topic HPV VACCINE Aged Out No longer eligi ble based on patient's age to complete this topic MENINGOCOCCAL (Group B) VACC INE SHARED DECISION-MAKING Aged Out No longer eligibl e based on patient's age to complete this topic MENINGOCOCCAL GROUPS A/C/Y/W VACCINE Aged Out No longer eligible b ased on patient's age to complete this topic PNEUMOCOCCAL VACCINE Aged Out No long er eligible based on patient's age to complete this topic Nancie Garcia Personal/Family Self 1970 [address] [place] [id number]
--- OUTSIDE RECORDS SUMMARY | 2024-10-28 05:55 | XMS_ITS ---
Author Organization [facility] Address [address] [place] [address] Phone Care Team Providers Care Ring Spinner Name Role Phone Lux Mejia MD Primary Care Provider Active Problems Problem Noted Date Diagnosed Date [...] 06/08/2024 Assessment & Plan (06/08/2024 11:22 AM COCOA POWDER MIXER OPERATOR): She has failed conservative treatment. Agree with [...] obs Assessment & Plan (07/29/2023 12:46 PM COCOA POWDER MIXER OPERATOR): Order ultrasound. Physical exam 07/23/2021 Assessment & Plan (08/31/2024 9:36 AM COCOA POWDER MIXER OPERATOR): Reviewed diet and exercise goals. Await Annual [...] aneurysm. Assessment & Plan (07/29/2023 1:09 PM COCOA POWDER MIXER OPERATOR): Reviewed diet and exercise goals. Await Annual labs. Reviewed immunization and screening status.Hypertension is controlled. Continue current regimen.She is due for colonoscopy in 2032. Follow with Neurology for TIERRA. Reviewed dietary modifications for GERD. Advise famtodine as needed. Assessment & Plan (07/29/2022 1:27 PM COCOA POWDER MIXER OPERATOR): Reviewed diet and exercise goals. Await Annual labs. Reviewed immunization and screening status.Hypertension is controlled. Continue current regimen. Advised cortisone OTC for rash. Order Cologuard for screening. Follow with Neurology for TIERRA. Refill valtrex. Assessment & Plan (07/23/2021 2:04 PM COCOA POWDER MIXER OPERATOR): Reviewed diet and exercise goals. Await Annual labs. Reviewed immunization and screening status.Hypertension is controlled. Continue current regimen. She is current on colonoscopy. Follow with Urology for recurrent UTI. Await renal US 07/29/21. Advised Shingrix. She is due for colonoscopy in 2025. Dysuria 07/13/2021 Assessment & Plan (07/13/2021 9:23 AM COCOA POWDER MIXER OPERATOR): Coitus associated. Reviewed normal urine culture. Refer to Urology. Advised macrobid before coitus. Follow with Gynecology. Treat new UTI with Cipro. Flank pain 07/13/2021 Assessment & Plan (07/13/2021 8:44 AM COCOA POWDER MIXER OPERATOR): ddx includes nephrolithiasis,mass. Renal ultrasound was ordered [...] able Assessment & Plan (06/08/2024 11:08 AM COCOA POWDER MIXER OPERATOR): Hypertension is controlled. Continue olmesartan and HCTZ. Assessment & Plan (07/13/2021 8:49 AM COCOA POWDER MIXER OPERATOR): Hypertension is controlled. Continue olmesartan and HCTZ. [...] lymph nodes removed -cont OP follow up Current Treatment and Therapy Plans No current plan information found. Past Treatment and Therapy Plans No past plan information found. Lifetime Dose Tracking * Chemical Lifetime Dose Automatic Entry Manual Entr y Fluoro Time 15.717 minutes 15.717 minutes 0 minutes Air kerma at the reference point (Ka,r) 9.93 mGy 9 .93 mGy 0 mGy DLP 1,221 mGycm 1,221 mGycm 0 mGycm
--- OUTSIDE RECORDS SUMMARY | 2024-10-28 05:55 | XMS_ITS | Referral Summary ---
Author Organization [facility] Address [address] [place] [address] Phone Care Team Providers Care Scrub Technician Name Role Phone Lux Mejia MD Primary Care Provider [phone] Encounters Date Type Department Care Team Description 10/24/2024 Telephone [facility] [address] [phone] Lux Mejia MD 10/23/2024 1:22 PM CDT - 10/23/2024 11:59 PM CDT Hospital Encounter [facility] [address] [place] [id number] Lux Mejia MD Jaw pain Discharge Disposition: Discharge to home or self care 10/18/2024 11:00 AM CDT Office Visit [facility] [address] [place] [phone] Lux Mejia MD Sinus pain (Primary Dx); Jaw pain; Primary hypertension; Bilateral impacted cerumen; Essential hypertension 10/16/[address] [phone] Lux Mejia MD DORYS Questions 10/15/2024 6:20 AM CDT - 10/16/2024 10:08 AM CDT Hospital Encounter [facility] [address] [place] [address] Ulisses Omer MD PhD Splenic artery aneurysm (Primary Dx) Discharge Disposition: Discharge to home or self care 10/15/2024 8:30 AM CDT - 10/15/2024 12:15 PM CDT Surgery [facility] [address] [place] [address] Ulisses Omer MD PhD splenic artery endovascular repair with covered stent with left brachial cutdown 10/15/2024 8:27 AM CDT Anesthesia Event [facility] [address] [place] [address] Kendy Roth MD PhD Nadia Mcdonald NP 10/09/2024 Telephone [facility] Vascular Surgery [address] [place] [address] Medical Office Building [address] [place] [address] Ulisses Omer MD PhD 10/08/2024 Telephone [facility] Surgery [address] [facility] Floor 1 [place] [address] Ulisses Omer MD PhD 10/02/2024 Orders Only [facility] Surgery [address] [facility] Floor 1 [place] [address] Ulisses Omer MD PhD Splenic artery aneurysm (Primary Dx) 10/01/2024 3:00 PM CDT Office Visit [facility] Surgery [address] [facility] 8th [place] [address] [place] [address] Ulisses Omer MD PhD Splenic artery aneurysm 09/17/2024 Orders Only [facility] [address] [facility] [address] [place] [address] Lux Mejia MD Hyperlipidemia, unspecified hyperlipidemia type (Primary Dx); Splenic artery aneurysm; Therapeutic drug monitoring 09/14/2024 8:13 AM MU[facility]ER COFFERDAM - 09/14/2024 11:59 PM [facility] Hospital Encounter [facility] ([facility]) [address] [place] [address] Lux Mejia MD Splenic artery aneurysm Discharge Disposition: Discharge to home or self care 08/31/2024 10:00 AM [facility] Lab [facility] [address] [place] [phone] Physical exam 08/31/2024 9:30 AM [facility] Office Visit [facility] [address] [facility] [address] [place] [address] Lux Mejia MD Physical exam (Primary Dx); Splenic artery aneurysm from Last 3 Months Allergies No known active allergies Medications hydroCHLOROthiazid [...] 1 spray into each nostril nightly 08/06/19 25 Active psyllium seed, with sugar, (FIBER ORAL)Indications:c [...] by mouth daily 30 tablet 11 10/19/19 Active gabapentin (NEURONTIN) 300 mg capsule Take [...] 06/08/2024 Assessment & Plan (06/08/2024 11:22 AM MUCKER COFFERDAM): She has failed conservative treatment. Agree with [...] obs Assessment & Plan (07/29/2023 12:46 PM MUCKER COFFERDAM): Order ultrasound. Physical exam 07/23/2021 Assessment & Plan (08/31/2024 9:36 AM MU[facility]ER COFFERDAM): Reviewed diet and exercise goals. Await Annual [...] aneurysm. Assessment & Plan (07/29/2023 1:09 PM MU[facility]ER COFFERDAM): Reviewed diet and exercise goals. Await Annual labs. Reviewed immunization and screening status.Hypertension is controlled. Continue current regimen.She is due for colonoscopy in 2032. Follow with Neurology for TIERRA. Reviewed dietary modifications for GERD. Advise famtodine as needed. Assessment & Plan (07/29/2022 1:27 PM [facility]ER COFFERDAM): Reviewed diet and exercise goals. Await Annual labs. Reviewed immunization and screening status.Hypertension is controlled. Continue current regimen. Advised cortisone OTC for rash. Order Cologuard for screening. Follow with Neurology for TIERRA. Refill valtrex. Assessment & Plan (07/23/2021 2:04 PM MU[facility]ER COFFERDAM): Reviewed diet and exercise goals. Await Annual labs. Reviewed immunization and screening status.Hypertension is controlled. Continue current regimen. She is current on colonoscopy. Follow with Urology for recurrent UTI. Await renal US 07/29/21. Advised Shingrix. She is due for colonoscopy in 2025. Dysuria 07/13/2021 Assessment & Plan (07/13/2021 9:23 AM MU[facility]ER COFFERDAM): Coitus associated. Reviewed normal urine culture. Refer to Urology. Advised macrobid before coitus. Follow with Gynecology. Treat new UTI with Cipro. Flank pain 07/13/2021 Assessment & Plan (07/13/2021 8:44 AM MU[facility]ER COFFERDAM): ddx includes nephrolithiasis,mass. Renal ultrasound was ordered [...] able Assessment & Plan (06/08/2024 11:08 AM MUCKER COFFERDAM): Hypertension is controlled. Continue olmesartan and HCTZ. Assessment & Plan (07/13/2021 8:49 AM MU[facility]ER COFFERDAM): Hypertension is controlled. Continue olmesartan and HCTZ. [...] lymph nodes removed -cont OP follow up Immunizations Immunization Administration Dates Next Due Influenza, Quadrivalent, Spl it, Preservative Free, Intramuscular 07/29/2022,07/13/2021,04/26/2020,05/23,06/07/2018 Influenza, Split 05/26/2011 Influenza, Trivalent, Cell Culture-based MDCK, Preservative Free, Antibiotic Free, Intramuscular 03/16/2024 Influenza, Trivalent, IM (MDV) 04/24/2013 Influenza, Trivalent, Preser vative Free, Intramuscular 12/21/2017(Deferred: Patient decision) Pfizer SARS-CoV-2 Monovalent Vaccination (12+ Yrs) PURPLE 07/22/2021 Pfizer Sars-Cov-2 Bivalent V accination (12+ YRS) 05/06/2022 Tdap 02/19/2013,02/19/2013 ZOSTER Recombinant 12/29/2021 Social History Tobacco Use Types Packs/Day Years [...] on file Legal Sex Female 1:24 AM [facility]ER COFFERDAM Gender Identity Not on file Sexual Orientation [...] 10/18/2024 10:39 AM CDT Plan of Treatment Not on file Medical Devices Implanted Type Area Ethylbenzene Converter Operator Device Identifier Shelf Expiration Date Model / Serial / Lot Wl [employer] Viabahn 6mm 6fr 5cm 120cm Delivery System Superficial Femoral [id number] - [id number] - [id number] Implanted:Qty: 1 on 10/15/2024 by Ulisses Omer MD PhD at [facility] Stent N/A: Splenic Artery [employer] [id number] 03/20/2027 [id number] / [id number] / Procedures Procedure Name Priority Date/Time Associated [...] AND SCREEN STAT 10/15/2024 9:55 AM CDT SC AN PROCEDURE PLACEHOLDER Routine 10/15/2024 9:15 AM CDT SC AN PROCEDURE PLACEHOLDER Routine 10/15/2024 9:15 AM CDT SC AN PROCEDURE PLACEHOLDER Routine 10/15/2024 9:15 AM CDT SC AN ELECTIVE ENDOTRACHEAL AIRWAY Routine 10/15/2024 9:15 AM CDT PLACEMENT RENAL ARTERY STENT 10/15/2024 8:32 AM CDT Splenic artery aneurysm POCT HCG, URINE Routine 10/15/2024 7:30 AM CDT CTA ABDOMEN Schedule Routine, Read Routine (OP Routine) 09/14/2024 9:17 AM [facility] COFFERDAM Splenic artery aneurysm EGFR Routine 08/31/2024 10:20 AM [facility]AM Physical exam DIFFERENTIAL AUTO Routine 08/31/2024 10: 20 AM [facility] CO[facility]AM Physical exam HEMOGLOBIN A1C Routine 08/31/2024 10:20 AM [facility]AM Physical exam LIPID PANEL Routine 08/31/2024 10:20 AM [facility] Physical exam COMPREHENSIVE METABOLIC PANEL Routine 08/31/2024 10:20 AM [facility] Physical exam THYROID FUNCTION CASCADE Routine 08/31/2024 10:20 AM [facility] Physical exam CBC WITH AUTO DIFFERENTIAL Routine 08/31/2024 10:20 AM [facility] Physical exam COLONOSCOPY 11/12/2022 11:49 AM CDT [...] it. Electronically signed by: Rimma Collins M.D. us Lux Mejia MD IMG CT PROCEDURES Final [...] 3:58 PM CDT 10/15/2024 4:20 PM CDT us Ulisses Omer MD PhD LAB BLOOD ORDERABLES F inal Result [facility] Department [place] [address] * Basic metabolic panel (10/15/2024 3:58 PM CDT) Sodium 141 135 - 145 mmol/L Potassium, pl 4.4 3.3 - 4.9 mmol/L [facility] Chloride 102 97 - 110 mmol/L [facility] CO2 29 22 - 32 mmol/L [facility] Anion gap 10 2 - 15 mmol/L [facility] BUN 13 6 - 25 mg/dL [facility] Creatinine 0.92 0.60 - 1.10 mg/dL [facility] Glucose 119 70 - 199 mg/dL [facility] Comment: Interpretive Data Fasting glucose >/= 126 [...] 2022. Calcium 9.0 8.5 - 10.3 mg/dL [facility] Blood 10/15/2024 3:58 PM CDT 10/15/2024 4:20 PM CDT us Ulisses Omer MD PhD LAB BLOOD ORDERABLES F inal Result [facility] [address] [facility] Department [place] [address] * (ABNORMAL) CBC without differential (10/15/2024 1:29 PM CDT) WBC 12.1(H) 3.8 - 9.9 K/cumm Hgb 13.2 11.9 - 15.5 g/dL [facility] Hct 37.5 35.6 - 45.5 % [facility] Plt 238 150 - 400 K/cumm [facility] MPV 8.9(L) 9.1 - 12.3 fL [facility] RBC 4.11 3.90 - 5.20 M/cumm [facility] MCV 91.2 81.3 - 96.4 fL [facility] MCH 32.1 27.1 - 33.3 pg [facility] MCHC 35.2 32.3 - 35.7 g/dL [facility] RDW CV 12.0 11.1 - 14.9 % [facility] RDW SD 39.8 35.7 - 48.1 fL [facility] NRBC abs 0.00 0.00 - 0.01 K/cumm [facility] Blood 10/15/2024 1:29 PM CDT 10/15/2024 1:38 PM CDT Ulisses Omer MD PhD LAB BLOOD ORDERABLES F inal Result Performing Organization Address [facility] [place] [address] * POCT Activated clotting time, low range (10/15/2024 11:19 AM CDT) ACT 128 123 - 168 sec POC Performer [id number] [facility] POC Device Number [id number] [facility] Blood 10/15/2024 11:1 9 AM CDT 10/15/2024 11:19 AM CDT Ulisses Omer MD PhD LAB POCT ORDERABLES - DEVICE Final Result Performing Organization Address [facility] Co de Phone Number [facility] Department [place] [address] * (ABNORMAL) POCT Activated clotting time, low range (10/15/2024 11:09 AM CDT) ACT 236(H) 123 - 168 sec POC Performer [id number] [facility] POC Device Number [id number] [facility] Blood 10/15/2024 11:0 9 AM CDT 10/15/2024 11:09 AM CDT Ulisses Omer MD PhD LAB POCT ORDERABLES - DEVICE Final Result Performing Organization Address [facility] Co de Phone Number [facility] Department [place] [address] * FL Fluoroscopy < 1 Hour (10/15/2024 11:02 AM CDT) Narrative [facility] - 10/15/2024 11:03 AM CDT The images from this study are not interpreted by Radiology. Please refer to the physician's procedure / OR operative note. Ulisses Omer MD PhD IMG FLUOROSCOPY PROCED URES Final Result Performing Organization Address [facility] Co de Phone Number [facility] * (ABNORMAL) POCT Activated clotting time, low range (10/15/2024 10:40 AM CDT) ACT 292(H) 123 - 168 sec POC Performer [id number] [facility] POC Device Number [id number] [facility] Blood 10/15/2024 10:4 0 AM CDT 10/15/2024 10:40 AM CDT Ulisses Omer MD PhD LAB POCT ORDERABLES - DEVICE Final Result Performing Organization Address [facility] de Phone Number [facility] [place] [employer] [place] [address] * (ABNORMAL) POCT Activated clotting time, low range (10/15/2024 10:14 AM CDT) ACT 294(H) 123 - 168 sec POC Performer [id number] [facility] POC Device Number [id number] [facility] Blood 10/15/2024 10:1 4 AM CDT 10/15/2024 10:14 AM CDT Ulisses Omer MD PhD LAB POCT ORDERABLES - DEVICE Final Result Performing Organization Address [facility] Co de Phone Number [facility] [place] [employer] [place] [address] * (ABNORMAL) POCT Activated clotting time, low range (10/15/2024 10:05 AM CDT) ACT 239(H) 123 - 168 sec POC Performer [id number] [facility] POC Device Number [id number] [facility] Blood 10/15/2024 10:0 5 AM CDT 10/15/2024 10:05 AM CDT Ulisses Omer MD PhD LAB POCT ORDERABLES - DEVICE Final Result Performing Organization Address [facility] de Phone Number [facility] [place] [address] * POCT Activated clotting time, low range (10/15/2024 9:58 AM CDT) Pathologist [facility] ACT 136 123 - 168 sec POC Performer [id number] [facility] POC Device Number [id number] [facility] Blood 10/15/2024 9:58 AM CDT 10/15/2024 9:58 AM CDT Ulisses Omer MD PhD LAB POCT ORDERABLES - DEVICE Final Result Performing Organization Address [facility] de Phone Number [facility] Department [place] [address] * Type and screen (10/15/2024 9:55 AM CDT) Pathologist [facility] ABO Rh AB Positive Suzy, indirect Negative [facility] Blood 10/15/2024 9:55 AM CDT 10/15/2024 10:22 AM CDT Narrative [facility] - 10/15/2024 11:20 AM CDT Has the patient had Daratumumab or Isatuximab in the past 6 months?->Unknown Kendy Roth MD PhD LAB BLOOD BANK TEST ORDERABLE S Final Result Performing Organization Address City/[facility] Co de Phone Number [facility] Department [place] [address] * SC AN PROCEDURE PLACEHOLDER (10/15/2024 9:15 AM CDT) [...] PhD ANESTHESIA ORDERABLES Final R esult * SC AN PROCEDURE PLACEHOLDER (10/15/2024 9:15 AM CDT) Kandice Cedillo CRNA - 10/15/2024 9:15 AM CDT Kandice Schwarz CRNA 10/15/2024 9:15 AM Arterial Line Patient location: OR Indication: continuous blood pressure monitoring and blood sampling needed Staff: Supervising provider: Kendy Roth MD PhD Placed by: RN LACTATION CONSULTANT: Kandice Schwarz CRNA Procedure prep: Prep solution: [...] PhD ANESTHESIA ORDERABLES Final R esult * SC AN ELECTIVE ENDOTRACHEAL AIRWAY, SC AN PROCEDURE PLACEHOLDER (10/15/2024 9:15 AM CDT) Kandice Cedillo CRNA - 10/15/2024 9:15 AM CDT Kandice Schwarz CRNA 10/15/2024 9:15 AM Airway Patient location: pre-op Urgency: elective Indications for airway management: anesthesia Difficult airway: no Staff: Supervising provider: Kendy Roth MD PhD Placed by: RN LACTATION CONSULTANT: Kandice Schwarz CRNA Emergent airway documentation: Risks [...] oral Blade type: Amaya Video blade type: Schwarz Blade size: 3 Cormack-Lehane (direct): grade I [...] Result * CTA Abdomen (09/14/2024 9:17 AM [facility]ER COFFERDAM) Anatomical Region Laterality Modality Abdomen N/A Computed Tomogra phy 09/14/2024 10:5 3 AM [facility] Impressions 09/14/2024 11:13 AM [facility] COFFERDAM 1. 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 2. No acute findings in the abdomen. Dictated by: Vasquez Lux Lommen, M.D. The radiology attending physician has personally reviewed this study, and had reviewed and/or edited this written report and agrees with it. Electronically signed by: Sky Hamlin M.D. Narrative 09/14/2024 11:13 AM [facility] EXAMINATION: CT ANGIOGRAPHY OF THE ABDOMEN WITH [...] it. Electronically signed by: Sky Hamlin M.D. Lux Mejia MD IMG CT PROCEDURES Final Resul t * eGFR (08/31/2024 10:20 AM [facility]ER [facility]FFERDAM) eGFR 76 >=60 mL/min/1. 73 m2 Comment: [...] reviewed 2021. Blood 08/31/2024 10:2 0 AM [facility]ER COFFERDAM 08/31/2024 10:33 AM [facility]ER COFFERDAM us Lux Mejia MD LAB BLOOD ORDERABLES Final Re sult [facility] Department [place] [address] * Differential, auto (08/31/2024 10:20 AM MU[facility]ER COFFERDAM) Neutrophil abs 3.8 1.5 - 6.5 K/cumm Imm gran abs 0.0 0.0 - 0.1 K/cumm [facility] Lymphocyte abs 2.3 0.8 - 3.3 K/cumm [facility] Monocyte abs 0.4 0.2 - 0.8 K/cumm [facility] Eosinophil abs 0.3 0.0 - 0.5 K/cumm [facility] Basophil abs 0.1 0.0 - 0.1 K/cumm [facility] Neutrophil pct 54.7 % [facility] Comment: Interpretive Data Percent cell count reference ranges are not reported, since discordance with absolute values may lead to misinterpretation of CBC data. Current Interpretive Data was last revised on 2017. Imm gran pct 0.3 % [facility] Comment: Interpretive Data Percent cell count reference ranges are not reported, since discordance with absolute values may lead to misinterpretation of CBC data. Current Interpretive Data was last revised on 2017. Lymphocyte pct 34.0 % [facility] Comment: Interpretive Data Percent cell count reference ranges are not reported, since discordance with absolute values may lead to misinterpretation of CBC data. Current Interpretive Data was last revised on 2017. Monocyte pct 5.4 % [facility] Comment: Interpretive Data Percent cell count reference ranges are not reported, since discordance with absolute values may lead to misinterpretation of CBC data. Current Interpretive Data was last revised on 2017. Eosinophil pct 4.9 % [facility] Comment: Interpretive Data Percent cell count reference ranges are not reported, since discordance with absolute values may lead to misinterpretation of CBC data. Current Interpretive Data was last revised on 2017. Basophil pct 0.7 % [facility] Comment: Interpretive Data Percent cell count reference ranges are not reported, since discordance with absolute values may lead to misinterpretation of CBC data. Current Interpretive Data was last revised on 2017. Blood 08/31/2024 10:2 0 AM [facility] 08/31/2024 10:29 AM [facility] Lux Mejia MD LAB BLOOD ORDERABLES Final Re sult Performing Organization Address City/[facility]/ZIP Co de Phone Number [facility] Department [place] [address] * Thyroid Function [place] (08/31/2024 10:20 AM [facility]ER COFFERDAM) [facility] TSH 2.61 0.30 - 4.20 mcIUnit/mL Blood 08/31/2024 10:2 0 AM [facility]ER COFFERDAM 08/31/2024 10:29 AM [facility] Lux Mejia MD LAB BLOOD ORDERABLES Final Re sult Performing Organization Address City/[facility] Co de Phone Number [facility] [place] [address] * (ABNORMAL) CBC with auto differential (08/31/2024 10:20 AM MU[facility]ER COFFERDAM) [facility] WBC 6.9 3.8 - 9.9 K/cumm Hgb 14.3 11.9 - 15.5 g/dL [facility] Hct 39.8 35.6 - 45.5 % [facility] Plt 351 150 - 400 K/cumm [facility] MPV 9.1 9.1 - 12.3 fL [facility] RBC 4.37 3.90 - 5.20 M/cumm [facility] MCV 91.1 81.3 - 96.4 fL [facility] MCH 32.7 27.1 - 33.3 pg [facility] MCHC 35.9(H) 32.3 - 35.7 g/dL [facility] RDW CV 12.4 11.1 - 14.9 % [facility] RDW SD 41.0 35.7 - 48.1 fL [facility] NRBC abs 0.00 0.00 - 0.01 K/cumm [facility] Blood 08/31/2024 10:2 0 AM MU[facility]ER COFFERDAM 08/31/2024 10:29 AM [facility] Lux Mejia MD LAB BLOOD ORDERABLES Final Re sult Performing Organization Address City/[facility]/ZIP Co de Phone Number [facility] [place] [address] * Hemoglobin A1c (08/31/2024 10:20 AM MU[facility]ER COFFERDAM) Pathologist [facility] Hgb A1C 5.0 4.0 - 5.6 % Estimated Average Glucose 97 mg/dL [facility] Comment: The ADA recommends reporting an estimated Average Glucose (eAG) with all Hemoglobin A1c results using the equation derived from a study of 507 normal and diabetic adults. Minority populations were underrepresented and children were not included. (Diabetes Care 2020; 43(S1): S66-S76). The eAG is not equivalent to a fasting glucose. Blood 08/31/2024 10:2 0 AM [facility] COFFERDAM 08/31/2024 10:29 AM [facility] Lux Mejia MD LAB BLOOD ORDERABLES Final Re sult [facility] [place] [place] [address] * (ABNORMAL) Lipid panel (08/31/2024 10:20 AM [facility]ER COFFERDAM) Pathologist [facility] Cholesterol 253(H) 30 - 199 mg/dL Comment: [...] revised on 2018. Triglycerides 148 <=149 mg/dL [facility] Comment: Interpretive Data Ages < or = [...] revised on 2018. HDL 54 >=40 mg/dL [facility] Comment: Interpretive Data Ages < or = 19 years Acceptable: >45 mg/dL Borderline low: 40-45 mg/dL Low: <40 mg/dL Ages > or = 20 years Desirable: >or= 60 mg/dL Low: <40 mg/dL Literature References: 1. Expert Panel on Integrated Guidelines for Cardiovascular Health and Risk Reduction in Children and Adolescents. Pediatrics 2011;128:S213 2. NCEP Expert Panel. Circulation 2003;110:227 Current Interpretive Data was last revised on 2018. LDL, calculated 172(H) <=129 mg/dL [facility] Comment: Interpretive Data Ages < or = 19 years Acceptable: <110 mg/dL Borderline high: 110-129 mg/dL High: >or= 130 mg/dL Ages > or = 20 years Optimal: <100 mg/dL Near optimal: 100-129 mg/dL Borderline high: 130-159 mg/dL High: >160 mg/dL Calculated using the Del Rosario LDL-C estimating equation. This equation was implemented on 2024. Prior to this date LDL-C was estimated using the Friedewald equation. Literature References: 1. Expert Panel on Integrated Guidelines for Cardiovascular Health and Risk Reduction in Children and Adolescents. Pediatrics 2011;128:S213 2. NCEP Expert Panel. Circulation 2004;110:227 3. Miguel Ángel M et al. APOORVA Cardiol. 2019November 22;5(5):540-548. doi: 10.1001/jamacardio.2020.0013 Current Interpretive Data was last revised on 2024. Non-HDL Cholesterol 199 mg/dL [facility] Comment: Interpretive Data Ages < or = [...] last revised on 2018. Chol/HDL ratio 5 [facility] Blood 08/31/2024 10:2 0 AM [facility]ER CO[facility]DAM 08/31/2024 10:29 AM [facility] Lux Mejia MD LAB BLOOD ORDERABLES Final Re sult [facility] Department [place] [address] * Comprehensive metabolic panel (08/31/2024 10:20 AM [facility] CO[facility]) Sodium 139 135 - 145 mmol/L Potassium, pl 3.8 3.3 - 4.9 mmol/L [facility] Chloride 102 97 - 110 mmol/L [facility] CO2 29 22 - 32 mmol/L [facility] Anion gap 8 2 - 15 mmol/L [facility] BUN 16 6 - 25 mg/dL [facility] Creatinine 0.90 0.60 - 1.10 mg/dL [facility] Glucose 103 70 - 199 mg/dL [facility] Comment: Interpretive Data Fasting glucose >/= 126 [...] 2022. Calcium 9.4 8.5 - 10.3 mg/dL [facility] Bilirubin, total 0.4 0.1 - 1.2 mg/dL [facility] Protein, pl 7.3 6.5 - 8.5 g/dL [facility] Albumin 4.5 3.5 - 5.0 g/dL [facility] Alk phos 78 40 - 130 Units/L [facility] ALT 23 7 - 45 Units/L [facility] AST 28 10 - 45 Units/L [facility] Blood 08/31/2024 10:2 0 AM MU[facility]ER COFFERDAM 08/31/2024 10:29 AM [facility] us Lux Mejia MD LAB BLOOD ORDERABLES Final Re sult [facility] Department of Laboratories [place] [address] * COLONOSCOPY (11/12/2022 11:49 AM CDT) Anatomical Region Laterality Modality Other Narrative Procedure Note Paresh Ledbetter MD - 11/12/2022 11:49 AM CDT GI ENDOSCOPY [facility] Patient Name: Nancie Lenz Procedure Date: 11/12/2022 11:49 AM Date of : 1970 Admit Type: Outpatient Age: 52 Gender: Female Attending MD: Paresh Ledbetter M.D. Room: [facility] ENDOSCOPY ROOM 9 Note Status: Finalized Procedure: [...] The scope was passed under direct vision.The [id number] endoscope was introduced through the anus and advanced to the cecum, identified by appendiceal orifice and ileocecal valve. The colonoscopy was performed without difficulty. The patient tolerated the procedure well. The qualityof the bowel preparation was evaluated using the BBPS (Gardena Bowel Preparation Scale) with scores of:Right Colon [...] On: 11/12/2022 11:49 AM Recognized by the [employer] for promoting quality in endoscopy Paresh Ledbetter MD ENDOSCOPY PROCEDURES Final Re sult from Last 3 Months or Most Recently Relevant to Health Maintenance Insurance [employer] [facility] [place] [employer] [place] Advance Directives For more information, please contact: [phone] * Full Code (Latest Code Status on File) Date Activated Date Inactivated Comments 10/15/2024 4:33 PM 10/16/2024 2:08 PM * Full Code Date Activated Date Inactivated Comments 11/12/2022 10:23 AM 11/12/2022 5:03 PM Care Teams Scrub Technician Relationship Specialty Start Date End Date Lux Mejia MD [address] [facility] [address] [place] [address] PCP - General Internal Medicine 01/29/21
--- OUTSIDE RECORDS SUMMARY | 2024-10-28 05:55 | XMS_ITS ---
Author Organization [facility] Address [address] [place] [address] Care Team Providers Care Asset Management Lead Name Role Phone Dr. Francisco Mejia Primary Care Provider Dorian Shaina Rivers Unavailable [phone] ZZ-Migration, Provider Unavailable Unavailab le REASON FOR VISIT [facility] To [facility] Conversion Encounter Medications Medication SIG (Take, Route, Frequency, Duration) Notes Start Date End Date Status Vanicream - 1 debo applied topica lly 4 times a day 01/27/2023 Active hydroCHLOROthiazide 25 MG 0.5 tablet ora lly once a day Active ALPRAZolam 0.25 MG TAKE 1 TABLET BY KIMBERLEY 2 TIMES A DAY NEEDED FOR ANXIETY. Active Olmesartan Medoxomil 40 MG 1 tab(s) oral ly once a day 01/27/2023 Active buPROPion HCl ER (XL) 300 MG 1 tab(s) or ally every 24 hours Active Cetirizine HCl 10 MG 1 tab(s) orally onc e a day Active hydrOXYzine HCl 25 MG 1 tab(s) orally 4 times a day, PRN 01/27/2023 Active valACYclovir HCl 500 MG 1 tab(s) orally bid Active Pimecrolimus 1 % 1 debo applied topica lly 2 times a day for 30 days 01/27/2023 Active Encounters Encounter Location Date Provider Diagnosis [facility] [address] [place] [address] 01/07/2024 Provider ZZ-Migration Rash and other nonspecific skin eruption R21 and Pruritus, unspecified L29.9 Assessments Encounter Date Diagnosis (ICD Code) Assessment Notes Treatment Notes Treatment Clinical Notes Section Notes 01/07/2024 Rash and other nonspecific skin eruption (ICD-10 - R21) 01/07/2024 Pruritus, unspecified (ICD-10 - L29.9) Plan Of Treatment Medication Medication Name Sig Start Date Stop Date Notes Vanicream - 1 debo applied topica lly 4 times a day 01/27/2023 hydroCHLOROthiazide 25 MG 0.5 tablet orally once a day ALPRAZolam 0.25 MG TAKE 1 TABLET BY KIMBERLEY 2 TIMES A DAY NEEDED FOR ANXIETY. Olmesartan Medoxomil 40 MG 1 tab(s) orally once a day 12/2022 buPROPion HCl ER (XL) 300 MG 1 tab(s) or ally every 24 hours Cetirizine HCl 10 MG 1 tab(s) orally once a day hydrOXYzine HCl 25 MG 1 tab(s) orally 4 times a day, PRN 01/27/2023 valACYclovir HCl 500 MG 1 tab(s) orally bid Pimecrolimus 1 % 1 debo applied topica lly 2 times a day for 30 days 01/27/2023 Progress Notes * Nancie LENZ ADOB:[birth year] (54 yo F)Acc No.[id number]:01/07/2024 Patient: Nancie ROLAND Provider: Alverto Woodward :1970 A ge:53 Y S ex:Female Date:01/07/2024 Address:[address] [place], [place] [id number] Pcp:Dr. Francisco Mejia Subjective: * Chief Complaints: * [facility] . [facility] * Medical History: Objective: * Vitals: Assessment: * Assessment: 1. R luiz and other nonspecific skin eruption - R21 (Primary) 2 . P ruritus, unspecified - L29.9 Plan: * Treatment: 2. P ruritus, unspecified Continue Cetirizine HCl Tablet, 10 MG, 1 tab(s), orally, once a day; C ontinue hydrOXYzine HCl Tablet, 25 MG, 1 tab(s), orally, 4 times a day, PRN. 3. O thers Continue valACYclovir HCl Tablet, 500 MG, 1 tab(s), orally, bid; C ontinue buPROPion HCl ER (XL) Tablet Extended Release 24 Hour, 300 MG, 1 tab(s), orally, every 24 hours; C ontinue hydroCHLOROthiazide Tablet, 25 MG, 0.5 tablet, orally, once a day; C ontinue ALPRAZolam Tablet, 0.25 MG, TAKE 1 TABLET BY MOUTH 2 TIMES A DAY NEEDED FOR ANXIETY.; C ontinue Olmesartan Medoxomil Tablet, 40 MG, 1 tab(s), orally, once a day. * Billing Information: * Visit Code: * Procedure Codes: * Electronic signature of Isha ESPARZA-Migration on 10/28/2024 at 05:55 AM CDT Sign off status: Pending * Provider: Alverto flores Migration Date: 0 01/07/2024 Generated for Bharath collins/Tan/Cherelle on: 10/28/2024 05:55 AM CDT
--- NOTE | 2024-10-28 06:12 | PC.NURSE ---
ERP notified of patients symptoms. ERP states she will look at triage note and place orders.
[2024-10-28 06:45] LABS: Basophils Percent Auto 0.2 % (0.2-1.2); Eosinophils Absolute Auto 0.3 K/mm3 (0-0.3); Eosinophils Percent Auto 3.2 % (0-4.4); Hematocrit 42.3 % (37.0-47.0); Hemoglobin 14.3 g/dL (12.0-15.0); Immature Granulocyte Absolute 0.02 K/mm3 (0.00-0.031); Immature Granulocyte Percent A 0.2 % (0-0.5); Lymphocytes Absolute Auto 2.41 K/mm3 (0.9-3.2); Lymphocytes Percent Auto 29.2 % (18.3-44.2); Mean Corpuscular HGB Conc 33.8 g/dl (32-36); Mean Corpuscular Hemoglobin 32.6 pg (26-34); Mean Corpuscular Volume 96.4 fl (80-100); Monocytes Absolute Auto 0.4 K/mm3 (0.1-0.6); Monocytes Percent Auto 4.7 % (2.6-8.5); Neutrophils Absolute Auto 5.1 K/mm3 (1.3-6.7); Neutrophils Percent Auto 62.5 % (45.5-73.1); Platelet Count Result 302 k/mm3 (150-375); Red Blood Count 4.39 M/mm3 (4.2-5.4); Red Cell Distribution Width 12.1 % (11.5-14.5); White Blood Count 8.2 K/mm3 (4.5-10.0)
[2024-10-28 06:54] LABS: Alanine Aminotransferase 41 U/L (6-35); Albumin Level 4.7 g/dL (3.5-5.1); Alkaline Phosphatase 68 U/L (38-126); Anion Gap 11 mmol/L (4-12); Aspartate Amino Transferase 34 U/L (14-36); Bilirubin,Total 0.3 mg/dL (0.2-1.3); Blood Urea Nitrogen 13 mg/dL (7-17); Calcium 9.6 mg/dL (8.4-10.2); Carbon Dioxide 28 mmol/L (22-30); Chloride 101 mmol/L (98-107); Estimated Glomerular Filt Rate > 60; Glucose 112 mg/dL (65-110); Lipase 134 U/L (23-300); Sodium 140 mmol/L (137-145)
[2024-10-28 07:00] LABS: INR 0.9; Prothrombin Time 12.3 Seconds (11.1-14.7)
[2024-10-28 07:01] LABS: Partial Thromboplastin Time 29.5 Seconds (22.3-36.8)
--- OUTSIDE RECORDS SUMMARY | 2024-10-28 07:52 | XMS_ITS | Encounter Summary ---
Author Organization [facility] Address [address] [place] [address] [place] [address] Care Team Providers Care Dye Padder Operator Name Role Phone Unavailable Primary Care Provider Unavailabl e Encounter Details Date Type Department Care Team (Late st Contact Info) Description 08/14/2018 Lab Requisition [facility] Care DermPath Lab [address] [facility] [place] [address] Nancie Coyle MD [address] [facility] [address] [place] [address] Social History Tobacco Use Types Packs/Day Years [...] DERMATOPATH TECHNICAL REPORT Routine 08/10/2018 12:00 AM EMERGENCY DEPARTMENT COORDINATOR documented in this encounter Results * DERMATOPATH TECHNICAL REPORT (08/10/2018 12:00 AM EMERGENCY DEPARTMENT COORDINATOR) Case Report Dermatopathology Report Case: [id number] Authorizing Provider: Nancie Coyle MD Collected: 08/10/2018 12:00 AM Pathologist: Janet Galeano MD Received: 08/14/2018 08:00 AM Specimens: A) - Skin, post neck B) - Skin, right pop fossa 9 12:02 PM EMERGENCY DEPARTMENT COORDINATOR DERMATOPATHOLOGY LABORATORY Clinical History A-B: R/O nevus, irritated pink papule. 9 12:02 PM EMERGENCY DEPARTMENT COORDINATOR DERMATOPATHOLOGY LABORATORY Gross Description Specimen A: Received is one formalin filled container labeled with the patient's name and designated post neck. The specimen consists of a shave measuring [id number]. Jar 0. Specimen B: Received is one formalin filled container labeled with the patient's name and designated right pop fossa. The specimen consists of a shave measuring [id number]. Jar 0. [facility] Dermatopathology Laboratory performed the technical component only. 12:02 PM [facility] DERMATOPATHOLOGY LABORATORY Embedded Images 12:02 PM [facility] DERMATOPATHOLOGY LABORATORY DISCLAIMER An external and internal positive and negative controls are appropriate for the histochemical, immunohistochemical and immunofluorescence stain(s) in this case (if any), except where stated explicitly. The performance characteristics of the stain(s) cited in this report were developed and its performance characteristic determined by the Dermatopathology Laboratory at [facility], directed by Dr. Sabine Royal. These tests need not be, and therefore are not, approved by the [place] Food and Drug Administration. The tests are used for clinical purposes. 12:02 PM [facility] DERMATOPATHOLOGY LABORATORY Pathology/Cytology TISSUE SPECIMEN FROM SKIN / Unknown 08/10/2018 08/14/2018 8:00 AM EMERGENCY DEPARTMENT COORDINATOR Miscellaneous samples (specimen) TISSUE SPECIMEN FROM SKIN / Unknown 08/10/2018 08/14/2018 8:00 AM EMERGENCY DEPARTMENT COORDINATOR Nancie Coyle MD LAB - PATHOLOGY/CYTO LOGY ORDERABLES DERMATOPATHOLOGY LABORATORY [facility] - Department of Dermatology [address] [place] [address] [address]th Floor Lab B [place], [place] [address] [phone] documented in this encounter Visit Diagnoses Not on filedocumented in this encounter
--- OUTSIDE RECORDS SUMMARY | 2024-10-28 07:52 | XMS_ITS | Clinical Summary ---
Author Organization [facility] Address [address] [place] [address] Care Team Providers Care Machine Sneller Name Role Phone Lux Mejia MD Primary Care Provider [phone] Allergies No known active allergies Medications buPROPion [...] Comments Blood Pressure 132/70 06/29/2024 10:50 AM TRACK WELDER Pulse 77 06/29/2024 10:50 AM TRACK WELDER Temperature 36.2 C (97.1 F) 06/29/2024 10:50 AM TRACK WELDER Respiratory Rate 18 06/29/2024 10:50 AM TRACK WELDER Oxygen Saturation 98% 06/29/2024 10:50 AM TRACK WELDER Inhaled Oxygen Concentration - - Weight 88.6 kg (195 lb 5.2 oz) 06/29/2024 7:30 A M TRACK WELDER Height 168.9 cm (5' 6.5 ) 06/29/2024 7:30 AM TRACK WELDER Body Mass Index 31.05 06/29/2024 7:30 AM TRACK WELDER Plan of Treatment Health Maintenance Due Date [...] this topic Medical Devices Implanted Type Area [employer] Device Identifier Shelf Expiration Date Model / Serial / Lot 3.0 X 24 Asnis Screw Implanted:Qty: 1 on 06/29/2024 by Herminio Lowery DPM at [facility] [place] Screw Left: Foot [employer] [id number] / / Explanted Type Area [employer] Device Identifier Shelf Expiration Date Model / Serial / Lot K-Wire 1.2mm X 100mm - [id number] Explanted:Qty: 1 on 06/29/2024 by Herminio Lowery DPM at [facility] Wire Left: Foot [employer] [id number] / / Insurance [facility] Care Teams Machine Sneller Relationship Specialty Start Date End Date Lux Mejia MD [address] [place] [address] PCP - General INTERNAL MEDICINE 06/19/24
--- OUTSIDE RECORDS SUMMARY | 2024-10-28 07:52 | XMS_ITS | Clinical Summary ---
Author Organization [facility] Address [address] [place] [address] Phone Care Team Providers Care Clerical Adviser Name Role Phone Unavailable Primary Care Provider [...] on file Legal Sex Female 6:06 AM INDUSTRIAL AUTOMATION ENGINEER Gender Identity Not on file Sexual Orientation Not on file Last Filed Vital Signs Vital Sign Reading Time Taken Comments Blood Pressure 112/70 06/26/2011 12:39 PM INDUSTRIAL AUTOMATION ENGINEER Pulse 93 06/26/2011 12:39 PM INDUSTRIAL AUTOMATION ENGINEER Temperature 37.2 C (99 F) 06/26/2011 12:39 PM INDUSTRIAL AUTOMATION ENGINEER Respiratory Rate 14 06/26/2011 12:39 PM INDUSTRIAL AUTOMATION ENGINEER Oxygen Saturation 97% 06/26/2011 12:39 PM INDUSTRIAL AUTOMATION ENGINEER Inhaled Oxygen Concentration - - Weight 83 kg (183 lb) 06/26/2011 12:39 PM INDUSTRIAL AUTOMATION ENGINEER Height 167.6 cm (5' 6 ) 06/26/2011 12:39 PM INDUSTRIAL AUTOMATION ENGINEER Body Mass Index 29.54 06/26/2011 12:39 PM INDUSTRIAL AUTOMATION ENGINEER Plan of Treatment Health Maintenance Due Date [...]
--- OUTSIDE RECORDS SUMMARY | 2024-10-28 07:52 | XMS_ITS | Clinical Summary ---
Author Organization [facility] Address [address] [place] [address] Phone Care Team Providers Care Pipe Fitter Gas Pipe Name Role Phone Lxu Mejia MD Primary Care Provider [phone] Allergies No known active allergies Medications hydroCHLOROthiazid [...] 06/08/2024 Assessment & Plan (06/08/2024 11:22 AM SCRAP BREAKER): She has failed conservative treatment. Agree with [...] obs Assessment & Plan (07/29/2023 12:46 PM SCRAP BREAKER): Order ultrasound. Physical exam 07/23/2021 Assessment & Plan (08/31/2024 9:36 AM SCRAP BREAKER): Reviewed diet and exercise goals. Await Annual [...] aneurysm. Assessment & Plan (07/29/2023 1:09 PM SCRAP BREAKER): Reviewed diet and exercise goals. Await Annual labs. Reviewed immunization and screening status.Hypertension is controlled. Continue current regimen.She is due for colonoscopy in 2032. Follow with Neurology for TIERRA. Reviewed dietary modifications for GERD. Advise famtodine as needed. Assessment & Plan (07/29/2022 1:27 PM SCRAP BREAKER): Reviewed diet and exercise goals. Await Annual labs. Reviewed immunization and screening status.Hypertension is controlled. Continue current regimen. Advised cortisone OTC for rash. Order Cologuard for screening. Follow with Neurology for TIERRA. Refill valtrex. Assessment & Plan (07/23/2021 2:04 PM SCRAP BREAKER): Reviewed diet and exercise goals. Await Annual labs. Reviewed immunization and screening status.Hypertension is controlled. Continue current regimen. She is current on colonoscopy. Follow with Urology for recurrent UTI. Await renal US 07/29/21. Advised Shingrix. She is due for colonoscopy in 2025. Dysuria 07/13/2021 Assessment & Plan (07/13/2021 9:23 AM SCRAP BREAKER): Coitus associated. Reviewed normal urine culture. Refer to Urology. Advised macrobid before coitus. Follow with Gynecology. Treat new UTI with Cipro. Flank pain 07/13/2021 Assessment & Plan (07/13/2021 8:44 AM SCRAP BREAKER): ddx includes nephrolithiasis,mass. Renal ultrasound was ordered [...] able Assessment & Plan (06/08/2024 11:08 AM SCRAP BREAKER): Hypertension is controlled. Continue olmesartan and HCTZ. Assessment & Plan (07/13/2021 8:49 AM SCRAP BREAKER): Hypertension is controlled. Continue olmesartan and HCTZ. [...] Type Department Care Team Description 10/24/[address] [place] [phone] Lux Mejia MD 10/23/2024 1:22 PM CDT - 10/23/2024 11:59 PM CDT Hospital Encounter [facility] [address] [place] [phone] Lux Mejia MD Jaw pain Discharge Disposition: Discharge to home or self care 10/18/2024 11:00 AM CDT Office Visit [address] [place] [phone] Lux Mejia MD Sinus pain (Primary Dx); Jaw pain; Primary hypertension; Bilateral impacted cerumen; Essential hypertension 10/16/[address] [place] [phone] Lux Mejia MD DORYS Questions 10/15/2024 8:30 AM CDT - 10/15/2024 12:15 PM CDT Surgery [facility] Operating Room [address] [place] [address] Ulisses Omer MD PhD splenic artery endovascular repair with covered stent with left brachial cutdown 10/15/2024 8:27 AM CDT Anesthesia Event [facility] Operating Room [address] [place] [address] Kendy Roth MD PhD Nadia Mcdonald NP 10/15/2024 6:20 AM CDT - 10/16/2024 10:08 AM CDT Hospital Encounter [address] [place] [address] Ulisses Omer MD PhD Splenic artery aneurysm (Primary Dx) Discharge Disposition: Discharge to home or self care 10/09/2024 Telephone [facility] Vascular Surgery [facility] Medical Office Building [address] [place] [address] Ulisses Omer MD PhD 10/08/2024 Telephone [facility] Surgery [address] Floor 1 [place] [address] Ulisses Omer MD PhD 10/02/2024 Orders Only [facility] Surgery [address] Floor 1 [place] [address] Ulisses Omer MD PhD Splenic artery aneurysm (Primary Dx) 10/01/2024 3:00 PM CDT Office Visit [facility] Surgery Pending sale to [facility] 8th [place] [address] [place] [address] Ulisses Omer MD PhD Splenic artery aneurysm 09/17/2024 Orders Only [facility] [address] [place] [address] Lux Mejia MD Hyperlipidemia, unspecified hyperlipidemia type (Primary Dx); Splenic artery aneurysm; Therapeutic drug monitoring 09/14/2024 8:13 AM SCRAP BREAKER - 09/14/2024 11:59 PM SCRAP BREAKER Hospital Encounter [facility] [address] [place] [address] Lux Mejia MD Splenic artery aneurysm Discharge Disposition: Discharge to home or self care 08/31/2024 10:00 AM SCRAP BREAKER Lab [facility] [address] [place] [phone] Physical exam 08/31/2024 9:30 AM SCRAP BREAKER Office Visit [facility] [address] [place] [address] [address] [place] [address] Lux Mejia MD Physical exam (Primary Dx); [...] BREAST SURGERY 07/25/2011 - 07/24/2012 Right tissue fish protector removed due to infection BREAST RECONSTRUCTION 07/25/2011 [...] [ RIGHT, s/p B mastectomy. Testing + [place], neg BRCA I/II ] (Added by TW [...] on file Legal Sex Female 1:24 AM SCRAP BREAKER Gender Identity Not on file Sexual Orientation [...] this topic Medical Devices Implanted Type Area Glass Wool Blanket Machine Feeder Device Identifier Shelf Expiration Date Model / Serial / Lot Wl [employer] Viabahn 6mm 6fr 5cm 120cm Delivery System Superficial Femoral [id number] - [id number] - [id number] Implanted:Qty: 1 on 10/15/2024 by Ulisses Omer MD PhD at [facility] Stent N/A: Splenic Artery Wl [employer] [id number] 03/20/2027 [id number] / [id number] / Procedures Procedure Name Priority Date/Time Associated [...] AND SCREEN STAT 10/15/2024 9:55 AM CDT IN AN PROCEDURE PLACEHOLDER Routine 10/15/2024 9:15 AM CDT IN AN PROCEDURE PLACEHOLDER Routine 10/15/2024 9:15 AM CDT IN AN PROCEDURE PLACEHOLDER Routine 10/15/2024 9:15 AM CDT IN AN ELECTIVE ENDOTRACHEAL AIRWAY Routine 10/15/2024 9:15 AM CDT PLACEMENT RENAL ARTERY STENT 10/15/2024 8:32 AM CDT Splenic artery aneurysm POCT HCG, URINE Routine 10/15/2024 7:30 AM CDT CTA ABDOMEN Schedule Routine, Read Routine (OP Routine) 09/14/2024 9:17 AM SCRAP BREAKER Splenic artery aneurysm EGFR Routine 08/31/2024 10:20 AM SCRAP BREAKER Physical exam DIFFERENTIAL AUTO Routine 08/31/2024 10: 20 AM SCRAP BREAKER Physical exam HEMOGLOBIN A1C Routine 08/31/2024 10:20 AM SCRAP BREAKER Physical exam LIPID PANEL Routine 08/31/2024 10:20 AM SCRAP BREAKER Physical exam COMPREHENSIVE METABOLIC PANEL Routine 08/31/2024 10:20 AM SCRAP BREAKER Physical exam THYROID FUNCTION CASCADE Routine 08/31/2024 10:20 AM SCRAP BREAKER Physical exam CBC WITH AUTO DIFFERENTIAL Routine 08/31/2024 10:20 AM SCRAP BREAKER Physical exam COLONOSCOPY 11/12/2022 11:49 AM CDT [...] ORDERABLES F inal Result Performing Organization Address City/[facility]/ZIP Co de Phone Number [facility] [place] [address] * Basic metabolic panel (10/15/2024 3:58 PM CDT) Pathologist [facility] Sodium 141 135 - 145 mmol/L Potassium, pl 4.4 3.3 - 4.9 mmol/L [facility] Chloride 102 97 - 110 mmol/L [facility] CO2 29 22 - 32 mmol/L [facility] Anion gap 10 2 - 15 mmol/L [facility] BUN 13 6 - 25 mg/dL [facility] Creatinine 0.92 0.60 - 1.10 mg/dL [facility] Glucose 119 70 - 199 mg/dL [facility] Comment: Interpretive Data Fasting glucose >/= [...] Calcium 9.0 8.5 - 10.3 mg/dL [facility] Blood 10/15/2024 3:58 PM CDT 10/15/2024 4:20 PM CDT Ulisses Omer MD PhD LAB BLOOD ORDERABLES F inal Result Performing Organization Address City/[facility]/ZIP Co de Phone Number [facility] [place] [address] * (ABNORMAL) CBC without differential (10/15/2024 1:29 PM CDT) Pathologist [facility] WBC 12.1(H) 3.8 - 9.9 K/cumm Hgb 13.2 11.9 - 15.5 g/dL [facility] Hct 37.5 35.6 - 45.5 % [facility] Plt 238 150 - 400 K/cumm [facility] MPV 8.9(L) 9.1 - 12.3 fL [facility] RBC 4.11 3.90 - 5.20 M/cumm [facility] MCV 91.2 81.3 - 96.4 fL [facility] MCH 32.1 27.1 - 33.3 pg [facility] MCHC 35.2 32.3 - 35.7 g/dL [facility] RDW CV 12.0 11.1 - 14.9 % [facility] RDW SD 39.8 35.7 - 48.1 fL [facility] NRBC abs 0.00 0.00 - 0.01 K/cumm [facility] Blood 10/15/2024 1:29 PM CDT 10/15/2024 1:38 PM CDT us Ulisses Omer MD PhD LAB BLOOD ORDERABLES F inal Result [facility] [place] [address] * POCT Activated clotting time, low range (10/15/2024 11:19 AM CDT) [facility] ACT 128 123 - 168 sec POC Performer [id number] [facility] POC Device Number [id number] [facility] Blood 10/15/2024 11:1 9 AM CDT 10/15/2024 11:19 AM CDT Ulisses Omer MD PhD LAB POCT ORDERABLES - DEVICE Final Result [facility] [place] [address] * (ABNORMAL) POCT Activated clotting time, low range (10/15/2024 11:09 AM CDT) ACT 236(H) 123 - 168 sec POC Performer [id number] [facility] POC Device Number [id number] [facility] Blood 10/15/2024 11:0 9 AM CDT 10/15/2024 11:09 AM CDT Ulisses Omer MD PhD LAB POCT ORDERABLES - DEVICE Final Result Performing Organization Address [facility] Co de Phone Number [facility] [place] [address] * FL Fluoroscopy < 1 Hour (10/15/2024 11:02 AM CDT) Narrative [facility] - 10/15/2024 11:03 AM CDT The images from this study are not interpreted by Radiology. Please refer to the physician's procedure / OR operative note. Ulisses Omer MD PhD IMG FLUOROSCOPY PROCED URES Final Result Performing Organization Address [facility] de Phone Number [facility] * (ABNORMAL) POCT Activated clotting time, low range (10/15/2024 10:40 AM CDT) ACT 292(H) 123 - 168 sec POC Performer [id number] [facility] POC Device Number [id number] [facility] Blood 10/15/2024 10:4 0 AM CDT 10/15/2024 10:40 AM CDT Ulisses Omer MD PhD LAB POCT ORDERABLES - DEVICE Final Result Performing Organization Address [facility] Co de Phone Number [facility] [place] [address] * (ABNORMAL) POCT Activated clotting time, low range (10/15/2024 10:14 AM CDT) ACT 294(H) 123 - 168 sec POC Performer [id number] [facility] POC Device Number [id number] [facility] Blood 10/15/2024 10:1 4 AM CDT 10/15/2024 10:14 AM CDT us Ulisses Omer MD PhD LAB POCT ORDERABLES - DEVICE Final Result Performing Organization Address City/[facility]/ZIP Co de Phone Number [facility] [place] [address] * (ABNORMAL) POCT Activated clotting time, low range (10/15/2024 10:05 AM CDT) ACT 239(H) 123 - 168 sec POC Performer [id number] [facility] POC Device Number [id number] [facility] Blood 10/15/2024 10:0 5 AM CDT 10/15/2024 10:05 AM CDT us Ulisses Omer MD PhD LAB POCT ORDERABLES - DEVICE Final Result Performing Organization Address City/[facility] Co de Phone Number [facility] [place] [address] * POCT Activated clotting time, low range (10/15/2024 9:58 AM CDT) ACT 136 123 - 168 sec POC Performer [id number] [facility] POC Device Number [id number] [facility] Blood 10/15/2024 9:58 AM CDT 10/15/2024 9:58 AM CDT us Ulisses Omer MD PhD LAB POCT ORDERABLES - DEVICE Final Result Performing Organization Address City/[facility]/ZIP Co de Phone Number [facility] [place] [address] * Type and screen (10/15/2024 9:55 AM CDT) ABO Rh AB Positive Suzy, indirect Negative [facility] Blood 10/15/2024 9:55 AM CDT 10/15/2024 10:22 AM CDT Narrative [facility] - 10/15/2024 11:20 AM CDT Has the patient had Daratumumab or Isatuximab in the past 6 months?->Unknown Kendy Roth MD PhD LAB BLOOD BANK TEST ORDERABLE S Final Result [facility] [place] [address] * IN AN PROCEDURE PLACEHOLDER (10/15/2024 9:15 AM CDT) [...] PhD ANESTHESIA ORDERABLES Final R esult * IN AN PROCEDURE PLACEHOLDER (10/15/2024 9:15 AM CDT) Kandice Cedillo CRNA - 10/15/2024 9:15 AM CDT Kandice Schwarz CRNA 10/15/2024 9:15 AM Arterial Line Patient location: OR Indication: continuous blood pressure monitoring and blood sampling needed Staff: Supervising provider: Kendy Roth MD PhD Placed by: WALLPAPER EMBOSSER HELPER: Kandice Schwarz CRNA Procedure prep: Prep solution: [...] PhD ANESTHESIA ORDERABLES Final R esult * IN AN ELECTIVE ENDOTRACHEAL AIRWAY, IN AN PROCEDURE PLACEHOLDER (10/15/2024 9:15 AM CDT) Narrative Kandice Schwarz CRNA - 10/15/2024 9:15 AM CDT Kandice Schwarz CRNA 10/15/2024 9:15 AM Airway Patient location: pre-op Urgency: elective Indications for airway management: anesthesia Difficult airway: no Staff: Supervising provider: Kendy Roth MD PhD Placed by: WALLPAPER EMBOSSER HELPER: Kandice Schwarz CRNA Emergent airway documentation: Risks [...] Result * CTA Abdomen (09/14/2024 9:17 AM SCRAP BREAKER) Anatomical Region Laterality Modality Abdomen N/A Computed Tomogra phy 09/14/2024 10:5 3 AM SCRAP BREAKER Impressions 09/14/2024 11:13 AM SCRAP BREAKER 1. Interval increase in size of a [...] Sky Hamlin M.D. Narrative 09/14/2024 11:13 AM SCRAP BREAKER EXAMINATION: CT ANGIOGRAPHY OF THE ABDOMEN WITH [...] by: Sky Hamlin M.D. Lux Mejia MD IM CT PROCEDURES Final Resul t * eGFR (08/31/2024 10:20 AM SCRAP BREAKER) eGFR 76 >=60 mL/min/1. 73 m2 Comment: [...] reviewed 2021. Blood 08/31/2024 10:2 0 AM SCRAP BREAKER 08/31/2024 10:33 AM SCRAP BREAKER Lux Mejia MD LAB BLOOD ORDERABLES Final Re sult [facility] [place] [address] * Differential, auto (08/31/2024 10:20 AM SCRAP BREAKER) Neutrophil abs 3.8 1.5 - 6.5 K/cumm Imm gran abs 0.0 0.0 - 0.1 K/cumm [facility] Lymphocyte abs 2.3 0.8 - 3.3 K/cumm [facility] Monocyte abs 0.4 0.2 - 0.8 K/cumm [facility] Eosinophil abs 0.3 0.0 - 0.5 K/cumm [facility] Basophil abs 0.1 0.0 - 0.1 K/cumm [facility] Neutrophil pct 54.7 % [facility] Comment: Interpretive Data Percent cell count reference ranges are not reported, since discordance with absolute values may lead to misinterpretation of CBC data. Current Interpretive Data was last revised on 2017. Imm gran pct 0.3 % [facility] Comment: Interpretive Data Percent cell count reference ranges are not reported, since discordance with absolute values may lead to misinterpretation of CBC data. Current Interpretive Data was last revised on 2017. Lymphocyte pct 34.0 % [facility] Comment: Interpretive Data Percent cell count reference ranges are not reported, since discordance with absolute values may lead to misinterpretation of CBC data. Current Interpretive Data was last revised on 2017. Monocyte pct 5.4 % [facility] Comment: Interpretive Data Percent cell count reference ranges are not reported, since discordance with absolute values may lead to misinterpretation of CBC data. Current Interpretive Data was last revised on 2017. Eosinophil pct 4.9 % [facility] Comment: Interpretive Data Percent cell count reference ranges are not reported, since discordance with absolute values may lead to misinterpretation of CBC data. Current Interpretive Data was last revised on 2017. Basophil pct 0.7 % [facility] Comment: Interpretive Data Percent cell count reference ranges are not reported, since discordance with absolute values may lead to misinterpretation of CBC data. Current Interpretive Data was last revised on 2017. Blood 08/31/2024 10:2 0 AM SCRAP BREAKER 08/31/2024 10:29 AM SCRAP BREAKER Lux Mejia MD LAB BLOOD ORDERABLES Final Re sult Performing Organization Address [facility] de Phone Number [facility] [place] [address] * Thyroid Function [place] (08/31/2024 10:20 AM SCRAP BREAKER) TSH 2.61 0.30 - 4.20 mcIUnit/mL Blood 08/31/2024 10:2 0 AM SCRAP BREAKER 08/31/2024 10:29 AM SCRAP BREAKER Lux Mejia MD LAB BLOOD ORDERABLES Final Re sult Performing Organization Address [facility] Co de Phone Number [facility] [place] [address] * (ABNORMAL) CBC with auto differential (08/31/2024 10:20 AM SCRAP BREAKER) [facility] WBC 6.9 3.8 - 9.9 K/cumm Hgb 14.3 11.9 - 15.5 g/dL [facility] Hct 39.8 35.6 - 45.5 % [facility] Plt 351 150 - 400 K/cumm [facility] MPV 9.1 9.1 - 12.3 fL [facility] RBC 4.37 3.90 - 5.20 M/cumm [facility] MCV 91.1 81.3 - 96.4 fL [facility] MCH 32.7 27.1 - 33.3 pg [facility] MCHC 35.9(H) 32.3 - 35.7 g/dL [facility] RDW CV 12.4 11.1 - 14.9 % [facility] RDW SD 41.0 35.7 - 48.1 fL [facility] NRBC abs 0.00 0.00 - 0.01 K/cumm [facility] Blood 08/31/2024 10:2 0 AM SCRAP BREAKER 08/31/2024 10:29 AM SCRAP BREAKER Lux Mejia MD LAB BLOOD ORDERABLES Final Re sult [facility] [place] [address] * Hemoglobin A1c (08/31/2024 10:20 AM SCRAP BREAKER) [facility] Hgb A1C 5.0 4.0 - 5.6 % Estimated Average Glucose 97 mg/dL [facility] Comment: The ADA recommends reporting an estimated Average Glucose (eAG) with all Hemoglobin A1c results using the equation derived from a study of 507 normal and diabetic adults. Minority populations were underrepresented and children were not included. (Diabetes Care 2020; 43(S1): S66-S76). The eAG is not equivalent to a fasting glucose. Blood 08/31/2024 10:2 0 AM SCRAP BREAKER 08/31/2024 10:29 AM SCRAP BREAKER us Lux Mejia MD LAB BLOOD ORDERABLES Final Re sult [facility] [place] [address] * (ABNORMAL) Lipid panel (08/31/2024 10:20 AM SCRAP BREAKER) Cholesterol 253(H) 30 - 199 mg/dL Comment: [...] 2018. LDL, calculated 172(H) <=129 mg/dL [facility] Comment: Interpretive Data Ages < or [...] on 2024. Non-HDL Cholesterol 199 mg/dL [facility] Comment: Interpretive Data Ages < or [...] last revised on 2018. Chol/HDL ratio 5 [facility] [place] Blood 08/31/2024 10:2 0 AM SCRAP BREAKER 08/31/2024 10:29 AM SCRAP BREAKER us Lux Mejia MD LAB BLOOD ORDERABLES Final Re sult [facility] [place] Department [place] [address] * Comprehensive metabolic panel (08/31/2024 10:20 AM SCRAP BREAKER) Sodium 139 135 - 145 mmol/L Potassium, pl 3.8 3.3 - 4.9 mmol/L [facility] Chloride 102 97 - 110 mmol/L [facility] CO2 29 22 - 32 mmol/L [facility] Anion gap 8 2 - 15 mmol/L [facility] BUN 16 6 - 25 mg/dL [facility] Creatinine 0.90 0.60 - 1.10 mg/dL [facility] Glucose 103 70 - 199 mg/dL [facility] Comment: Interpretive Data Fasting glucose >/= [...] Calcium 9.4 8.5 - 10.3 mg/dL [facility] Bilirubin, total 0.4 0.1 - 1.2 mg/dL [facility] Protein, pl 7.3 6.5 - 8.5 g/dL [facility] Albumin 4.5 3.5 - 5.0 g/dL [facility] Alk phos 78 40 - 130 Units/L [facility] ALT 23 7 - 45 Units/L [facility] AST 28 10 - 45 Units/L [facility] Blood 08/31/2024 10:2 0 AM SCRAP BREAKER 08/31/2024 10:29 AM SCRAP BREAKER Lux Mejia MD LAB BLOOD ORDERABLES Final Re sult [facility] [place] [address] * COLONOSCOPY (11/12/2022 11:49 AM CDT) Anatomical Region Laterality Modality Other Narrative Procedure Note Paresh Ledbetter MD - 11/12/2022 11:49 AM CDT [facility] Patient Name: Nancie Lenz Procedure Date: 11/12/2022 11:49 AM Date of : 1970 Admit Type: Outpatient Age: 52 Gender: Female Attending MD: Paresh Ledbetter M.D. Room: [facility] ENDOSCOPY ROOM 9 Note Status: Finalized [...] scope was passed under direct vision.The CF [id number] endoscope was introduced through the anus and advanced to the cecum, identified by appendiceal orifice and ileocecal valve. The colonoscopy was performed without difficulty. The patient tolerated the procedure well. The qualityof the bowel preparation was evaluated using the BBPS (Mercer Bowel Preparation Scale) with scores of:Right Colon [...] On: 11/12/2022 11:49 AM Recognized by the [place] [employer] for promoting quality in endoscopy us Paresh Ledbetter MD ENDOSCOPY PROCEDURES Final Re sult from Last 3 Months or Most Recently Relevant to Health Maintenance Insurance [place] Advance Directives For more information, please contact: [phone] * Full Code (Latest Code Status on File) Date Activated Date Inactivated Comments 10/15/2024 4:33 PM 10/16/2024 2:08 PM * Full Code Date Activated Date Inactivated Comments 11/12/2022 10:23 AM 11/12/2022 5:03 PM Care Teams Pipe Fitter Gas Pipe Relationship Specialty Start Date End Date Lux Mejia MD [address] [address] PCP - General Internal Medicine 01/29/21
--- OUTSIDE RECORDS SUMMARY | 2024-10-28 07:52 | XMS_ITS | Encounter Summary ---
Author Organization [facility] Address [address] [place] [address] Care Team Providers Care Bridge Builder Name Role Phone Lux Mejia MD Primary Care Provider [phone] Reason for Visit * Reason Onset Date Comments DORYS Questions 10/16/2024 Encounter Details Date Type Department Care Team (Late st Contact Info) Description 10/16/2024 Telephone [facility] [address] [place] [address] [place] [address] Lux Mejia MD [address] [place] [address] DORYS Questions Social History Tobacco [...] on file Legal Sex Female 1:24 AM PATTERNMAKER GRADER Gender Identity Not on file Sexual Orientation Not on file documented as of this encounter Miscellaneous Notes * Telephone Encounter - Minda Bermudez - 10/16/2024 8:51 AM CDT DORYS Questions (Message from [facility]-Spiritual Advisor): Has patient been discharged at time of call? No Will patient be transferred to another inpatient facility (e.g. intermediate, inpatient rehab, etc.)? No The patient was not discharged at the time of the call. Patient will need to be contacted after discharge to complete remaining questions. Date Admitted: 10/15 Tentative Discharge Date: 10/16 Facility Admitted To: [facility] Date of DORYS Appointment: 10/25 Additional Comments: patient admitted for splenic artery aneurysm Does message need to be routed? Yes-Action Needed documented in this encounter Plan of Treatment Not on file documented as of this encounter Visit Diagnoses Not on filedocumented in this encounter Care Teams Bridge Builder Relationship Specialty Start Date End Date Lux Mejia MD [id number] [place] [address] PCP - General Internal Medicine 01/29/21 documented as of this encounter
--- OUTSIDE RECORDS SUMMARY | 2024-10-28 07:52 | XMS_ITS | Patient Health Record ---
Author Organization [facility] Address [address] [place] [address] Care Team Providers Care Butcher Helper Name Role Phone Dr. Francisco Mejia Primary Care Provider U Shaina Rivers Unavailable [phone] [facility], Provider Unavailable Unavailab le Allergies No Known Allergies Reason For Referral No Information Medications Medication SIG (Take, Route, Frequency, Duration) Notes Start Date End Date Status CETIRIZINE 10 mg 1 tab(s) orally once a day Active BUPROPION 300 mg/24 hours 1 tab(s) orall y every 24 hours Active HYDROCHLOROTHIAZIDE 25 mg 0.5 tablet ora lly once a day Active HYDROXYZINE HYDROCHLORIDE hydrochloride 25 mg 1 tab(s) orally 4 times a day, PRN 01/27/2023 Active VALACYCLOVIR 500 mg 1 tab(s) orally bid Active ALPRAZOLAM 0.25 mg TAKE 1 TABLET BY MOUTH 2 TIMES A DAY NEEDED FOR ANXIETY. Active OLMESARTAN 40 mg 1 tab(s) orally once a day 01/27/2023 Active Vanicream - 1 debo applied topically 4 times a day 01/27/2023 Active hydroCHLOROthiazide 25 MG 0.5 tablet ora lly once a day Active ALPRAZolam 0.25 MG TAKE 1 TABLET BY MOUTH 2 TIMES A DAY NEEDED FOR ANXIETY. Active Olmesartan Medoxomil 40 MG 1 tab(s) oral ly once a day 01/27/2023 Active Cetirizine HCl 10 MG 1 tab(s) orally onc e a day Active hydrOXYzine HCl 25 MG 1 tab(s) orally 4 times a day, PRN 01/27/2023 Active valACYclovir HCl 500 MG 1 tab(s) orally bid Active buPROPion HCl ER (XL) 300 MG 1 tab(s) or ally every 24 hours Active PIMECROLIMUS 1% 1 debo applied topically 2 times a day for 30 days 01/27/2023 Active VANICREAM - 1 debo applied topically 4 times a day 01/27/2023 Active Pimecrolimus 1 % 1 debo applied topically 2 times a day for 30 days 01/27/2023 Active Social History Tobacco Use: Social History Observation Description Date Details (start date - stop date) Never Smoker NA - NA Smoking Smart Form: Question Answer Notes Are you a: never smoker Problems Problem Type SNOMED Code ICD Code Onset Dates Problem Status W/U Status Risk Notes Problem Malignant neoplasm of female breast (416864071) Malignant neoplasm of unspecified site of unspecified female breast (C50.919) Active confirmed Problem Essential hypertension (39836149) Essential (primary) hypertension (I10) Active confirmed Problem Diverticular disease of both small and large intestine without perforation or abscess (717835388) Diverticulitis of large intestine without perforation or abscess with bleeding (K57.33) Active confirmed Problem Depression (457550350) Depression, unspecified (F32.A) Active confirmed Encounters Encounter Location Date Provider Diagnosis [address] [address] 01/07/2024 Provider [facility]Migration Rash and other nonspecific skin eruption R21 and Pruritus, unspecified L29.9 Assessments Encounter Date Diagnosis (ICD Code) Assessment Notes Treatment Notes Treatment Clinical Notes Section Notes 01/07/2024 Rash and other nonspecific skin eruption (ICD-10 - R21) 01/07/2024 Pruritus, unspecified (ICD-10 - L29.9) Plan Of Treatment No Information Insurance Providers Payer Name Payer Address Payer Phone Subscriber Number Group Number Insured Name Patient Relationship to Insured Coverage Start Date Coverage End Date [facility] [id number] [place] [address] [id number] pao Garcia Spouse - patient is the spouse of the insured Medical (General) History Medical History History ICD Code Essential (primary) hypertension I10 Depression, unspecified F32.A Diverticulitis of large inte rick without perforation or abscess with bleeding K57.33 Malignant neoplasm of unspecified site o f unspecified female breast C50.919 Surgical History Surgery Date(Month/Year) marsupialization 05/09/2019 mastectomy 2012 double mastectomy 07/28/2011 Knee Surgery 1988 lumpectomy 06/07/2011 bunionectomy 2019 arthroscopic 09/02/1986 Hospitalization History Reason Date(Month/Year) diverticulitis 06/19/2019 preeclampsia 10/25/2005 preeclampsia 08/25/2007 appendectomy 12/02/2009
--- OUTSIDE RECORDS SUMMARY | 2024-10-28 07:52 | XMS_ITS ---
Author Organization [facility] Address [address] [place] [address] Phone Care Team Providers Care Nickel Operator Name Role Phone Lux Mejia MD Primary [...] 06/08/2024 Assessment & Plan (06/08/2024 11:22 AM LIGHT RAIL TRANSIT OPERATOR): She has failed conservative treatment. Agree [...] obs Assessment & Plan (07/29/2023 12:46 PM LIGHT RAIL TRANSIT OPERATOR): Order ultrasound. Physical exam 07/23/2021 Assessment & Plan (08/31/2024 9:36 AM LIGHT RAIL TRANSIT OPERATOR): Reviewed diet and exercise goals. Await [...] aneurysm. Assessment & Plan (07/29/2023 1:09 PM LIGHT RAIL TRANSIT OPERATOR): Reviewed diet and exercise goals. Await Annual labs. Reviewed immunization and screening status.Hypertension is controlled. Continue current regimen.She is due for colonoscopy in 2032. Follow with Neurology for TIERRA. Reviewed dietary modifications for GERD. Advise famtodine as needed. Assessment & Plan (07/29/2022 1:27 PM LIGHT RAIL TRANSIT OPERATOR): Reviewed diet and exercise goals. Await Annual labs. Reviewed immunization and screening status.Hypertension is controlled. Continue current regimen. Advised cortisone OTC for rash. Order Cologuard for screening. Follow with Neurology for TIERRA. Refill valtrex. Assessment & Plan (07/23/2021 2:04 PM LIGHT RAIL TRANSIT OPERATOR): Reviewed diet and exercise goals. Await Annual labs. Reviewed immunization and screening status.Hypertension is controlled. Continue current regimen. She is current on colonoscopy. Follow with Urology for recurrent UTI. Await renal US 07/29/21. Advised Shingrix. She is due for colonoscopy in 2025. Dysuria 07/13/2021 Assessment & Plan (07/13/2021 9:23 AM LIGHT RAIL TRANSIT OPERATOR): Coitus associated. Reviewed normal urine culture. Refer to Urology. Advised macrobid before coitus. Follow with Gynecology. Treat new UTI with Cipro. Flank pain 07/13/2021 Assessment & Plan (07/13/2021 8:44 AM LIGHT RAIL TRANSIT OPERATOR): ddx includes nephrolithiasis,mass. Renal ultrasound was [...] able Assessment & Plan (06/08/2024 11:08 AM LIGHT RAIL TRANSIT OPERATOR): Hypertension is controlled. Continue olmesartan and HCTZ. Assessment & Plan (07/13/2021 8:49 AM LIGHT RAIL TRANSIT OPERATOR): Hypertension is controlled. Continue olmesartan and [...]
--- OUTSIDE RECORDS SUMMARY | 2024-10-28 07:52 | XMS_ITS | Continuity of Care Document ---
Author Organization [facility] Address [address] [place] [address] Phone Care Team Providers Care Motor Builder Assembler Name Role Phone Gabriel Garner Unavailable Unavailable Procedures Procedure Date Post-op Follow-up Visit Post-op Follow-up Visit Remove Eyelid Lesion Eye Exam, New Patient Advance Directives Directive Yes / No Effective Date File Name No Information Encounters Encounter Description Practice Location Reason(s) For Visit Diagnoses Date Provider Providers Copied on Encounter [facility], [address] [place] [address] [address], [place], [place], [id number], tel:[phone] [facility] No Information [address] Gabriel. [facility], [facility], [place]. tel:[phone] Referring Provider: Melvin Garnett MD, [address] [place], [address]. tel:[phone] [facility], [address], [place], [place], [id number], [place] tel:[phone] [facility] No Information [address] Gabriel. [address] [address], [place], [address], [place]. tel:[phone] Referring Provider: Melvin Garnett MD, [address] [place], [address]. tel:[phone] [facility], [address], [place], [place], [id number], tel:[phone] [facility] No Information [address] Gabriel. [facility] [address], [facility], [place]. tel:[phone] Referring Provider: Melvin Garnett MD, [address] [place] [address], [address]. tel:[phone] [facility], [address], [place], [place], [address], tel:[phone] [facility] No Information [address] Gabriel. [facility] [address], [facility], [place]. tel:[phone] Referring Provider: Melvin Garnett MD, [address] [place], [address]. tel:[phone] Family History Family Member Type Diagnosis Age At Onset No Information Payers Payer name Insurance type Covered republican ID Authoriza tion(s) No Information Social History [...]
--- OUTSIDE RECORDS SUMMARY | 2024-10-28 07:52 | XMS_ITS | Patient Health Record ---
Author Organization [facility] Address [address] [place], [place] [id number] Care Team Providers Care Orthotic And Prosthetic Technician Name Role Phone YUNGBIRD BUSTAMANTE Unavailable [phone] Lux Mejia Unavailable Unavailable Allergies No Known Allergies Reason For Referral No Information Immunizations Vaccine Route Administration Date Status Comme nts Influenza, high dose seasonal Unknown 03/24/2024 Admini stered Vital Signs Height-cm 167.64 cm 08/13/2024 Weight-kg 86.18 kg 08/13/2024 Height 66.00 in 08/13/2024 Weight 190 lbs 08/13/2024 BMI 30.66 kg/m2 08/13/2024 Encounters Encounter Location Date Provider Diagnosis [address] [id number] 06/29/2024 BIRD BALTAZAR [facility] [address] [place], [place] [id number] 03/29/2024 BIRDSPEEDY BALTAZAR Hallux rigidus of left foot M20.22 and Left foot pain M79.672 [facility] [address] [place], [place] [id number] 05/17/2024 BIRDSPEEDY BALTAZAR Hallux rigidus of left foot M20.22 ; Pain due to internal orthopedic prosthetic devices, implants and grafts, initial encounter T84.84XA and Left foot pain M79.672 [facility] [address] [place], [place] [id number] 07/05/2024 BIRDSPEEDY BALTAZAR Hallux rigidus of left foot M20.22 ; Hallux rigidus of right foot M20.21 ; Left foot pain M79.672 and Encounter for other specified surgical aftercare Z48.89 [facility] [address] [place], [place] [id number] 07/12/2024 BIRD BALTAZAR Hallux valgus (acquired), left foot M20.12 ; Left foot pain M79.672 and Encounter for other specified surgical aftercare Z48.89 [facility] [address] [place], [place] [id number] 08/13/2024 BIRD BALTAZAR Hallux valgus (acquired), left foot M20.12 ; Left foot pain M79.672 and Encounter for other specified surgical aftercare Z48.89 Assessments Encounter Date Diagnosis (ICD Code) Assessment Notes Treatment Notes Treatment Clinical Notes Section Notes 03/29/2024 Left foot pain (ICD-10 - M79.672) 03/29/2024 Hallux rigidus of left foot (ICD-10 - M20.22) 05/17/2024 Pain due to internal orthopedic prosthetic devices, implants and grafts, initial encounter (ICD-10 - T84.84XA) 05/17/2024 Hallux rigidus of left foot (ICD-10 - M20.22) 07/05/2024 Hallux rigidus of right foot (ICD-10 - M20.21) 07/05/2024 Hallux rigidus of left foot (ICD-10 - M20.22) 07/12/2024 Hallux valgus (acquired), left foot (ICD-10 - M20.12) 07/12/2024 Left foot pain (ICD-10 - M79.672) 08/13/2024 Hallux valgus (acquired), left foot (ICD-10 - M20.12) Normal activities: Patient may return to normal activities as tolerated. 07/12/2024 Encounter for other specified surgical aftercare (ICD-10 - Z48.89) 08/13/2024 Left foot pain (ICD-10 - M79.672) 07/05/2024 Left foot pain (ICD-10 - M79.672) 05/17/2024 Left foot pain (ICD-10 - M79.672) 07/05/2024 Encounter for other specified surgical aftercare (ICD-10 - Z48.89) 08/13/2024 Encounter for other specified surgical aftercare (ICD-10 - Z48.89) 03/29/2024 Other We discussed roseann th conservative and surgical treatment options. We discussed the intra-operative and post-operative treatment course. We discussed the risks and complications including, but not limited to: pain, infection, swelling, numbness, under-correction, over-correction, stiffness, no improvement, and need for further surgery. No guarantees were given, nor implied. Questions encouraged and answered. Consent reviewed and placed in chart. The following procedures are proposed - [place] procedure 05/17/2024 Other We discussed roseann th conservative and surgical treatment options. We discussed the intra-operative and post-operative treatment course. We discussed the risks and complications including, but not limited to: pain, infection, swelling, numbness, under-correction, over-correction, stiffness, no improvement, and need for further surgery. No guarantees were given, nor implied. Questions encouraged and answered. Consent reviewed and placed in chart. The following procedures are proposed - Hardware removal right 07/05/2024 Other Dressing Change : The old dressing was removed. Utilizing aseptic technique, a new sterile compression dressing was applied. Patient was instructed to keep it dry and not remove it. 07/12/2024 Other Suture Removal: The sutures were removed. Shoes: Patient may return to normal shoes as tolerated. Plan Of Treatment No Information Insurance Providers Payer Name Payer Address Payer Phone Subscriber Number Group Number Insured Name Patient Relationship to Insured Coverage Start Date Coverage End Date [facility] ([facility]) ATTN CLAIMS [address] [place] [address] [id number] KINA LENZ Self - patient is the insured Medical (General) History Medical History History ICD Code Pneumonia Cancer Arthritis Bladder infections Sleep apnea Psychiatric Disorder abnormal bleeding hypertension Surgical History Surgery Date(Month/Year) bunionectomy mastectomy appendectomy
--- OUTSIDE RECORDS SUMMARY | 2024-10-28 07:52 | XMS_ITS | Clinical Summary ---
Author Organization [email or web address] Address [address] [place] [address] Care Team Providers Care Head Of Sales Promotion Name Role Phone Unavailable Primary Care Provider Unavailabl e Source Comments [email or web address],non-owned Affiliates and Associated Physician Practices is amultiple site organization consisting of ambulatory clinics and hospital sitesin [place], [place], [place] and [place]. This disclosure is being madepursuant to the Care Everywhere program and may not contain all information available regarding this patient. Last updated 18.[email or web address] Social History Tobacco Use Types Packs/Day Years [...] this topic Nancie Garcia Personal/Family Self 1970 [address] [place] [address]
--- OUTSIDE RECORDS SUMMARY | 2024-10-28 07:52 | XMS_ITS | Referral Summary ---
Author Organization [facility] Address [address] [place] [address] Phone Care Team Providers Care Radiology Technician Name Role Phone Lux Mejia MD Primary Care Provider [phone] Encounters Date Type Department Care Team Description 10/24/2024 Telephone [facility] [address] [phone] Lux Mejia MD 10/23/2024 1:22 PM CDT - 10/23/2024 11:59 PM CDT Hospital Encounter [facility] [address] [place] [id number] Lux Mejia MD Jaw pain Discharge Disposition: Discharge to home or self care 10/18/2024 11:00 AM CDT Office Visit [facility] [address] [place] [phone] Lux Mejia MD Sinus pain (Primary Dx); Jaw pain; Primary hypertension; Bilateral impacted cerumen; Essential hypertension 10/16/[address] [phone] Lux Mejia MD DORYS Questions 10/15/2024 6:20 AM CDT - 10/16/2024 10:08 AM CDT Hospital Encounter [facility] [address] [place] [address] Ulisses Omer MD PhD Splenic artery aneurysm (Primary Dx) Discharge Disposition: Discharge to home or self care 10/15/2024 8:30 AM CDT - 10/15/2024 12:15 PM CDT Surgery [facility] Operating Room 1 [place] [address] Ulisses Omer MD PhD splenic artery endovascular repair with covered stent with left brachial cutdown 10/15/2024 8:27 AM CDT Anesthesia Event [facility] Operating Room [address] [place] [address] Kendy Roth MD PhD Nadia Mcdonald NP 10/09/2024 Telephone [facility] Vascular Surgery [address] [place] [address] Medical Office Building [address] [place] [address] Ulisses Omer MD PhD 10/08/2024 Telephone [facility] Surgery [address] [facility] Floor 1 [place] [address] Ulisses Omer MD PhD 10/02/2024 Orders Only [facility] Surgery [address] [facility] Floor 1 [place] [address] Ulisses Omer MD PhD Splenic artery aneurysm (Primary Dx) 10/01/2024 3:00 PM CDT Office Visit [facility] Surgery [address] [facility] Advanced Medicine 8th [place] [address] [place] [address] Ulisses Omer MD PhD Splenic artery aneurysm 09/17/2024 Orders Only [facility] [address] [facility] [address] [place] [address] Lux Mejia MD Hyperlipidemia, unspecified hyperlipidemia type (Primary Dx); Splenic artery aneurysm; Therapeutic drug monitoring 09/14/2024 8:13 AM BUSINESS OWNER/ENGINEER - 09/14/2024 11:59 PM BUSINESS OWNER/ENGINEER Hospital Encounter [facility] [address] [place] [address] Lux Mejia MD Splenic artery aneurysm Discharge Disposition: Discharge to home or self care 08/31/2024 10:00 AM BUSINESS OWNER/ENGINEER Lab [facility] [address] [place] [phone] Physical exam 08/31/2024 9:30 AM BUSINESS OWNER/ENGINEER Office Visit [facility] [address] [facility] [address] [place] [address] Lux Mejia MD Physical exam (Primary Dx); [...] 06/08/2024 Assessment & Plan (06/08/2024 11:22 AM BUSINESS OWNER/ENGINEER): She has failed conservative treatment. Agree with [...] obs Assessment & Plan (07/29/2023 12:46 PM BUSINESS OWNER/ENGINEER): Order ultrasound. Physical exam 07/23/2021 Assessment & Plan (08/31/2024 9:36 AM BUSINESS OWNER/ENGINEER): Reviewed diet and exercise goals. Await Annual [...] aneurysm. Assessment & Plan (07/29/2023 1:09 PM BUSINESS OWNER/ENGINEER): Reviewed diet and exercise goals. Await Annual labs. Reviewed immunization and screening status.Hypertension is controlled. Continue current regimen.She is due for colonoscopy in 2032. Follow with Neurology for TIERRA. Reviewed dietary modifications for GERD. Advise famtodine as needed. Assessment & Plan (07/29/2022 1:27 PM BUSINESS OWNER/ENGINEER): Reviewed diet and exercise goals. Await Annual labs. Reviewed immunization and screening status.Hypertension is controlled. Continue current regimen. Advised cortisone OTC for rash. Order Cologuard for screening. Follow with Neurology for TIERRA. Refill valtrex. Assessment & Plan (07/23/2021 2:04 PM BUSINESS OWNER/ENGINEER): Reviewed diet and exercise goals. Await Annual labs. Reviewed immunization and screening status.Hypertension is controlled. Continue current regimen. She is current on colonoscopy. Follow with Urology for recurrent UTI. Await renal US 07/29/21. Advised Shingrix. She is due for colonoscopy in 2025. Dysuria 07/13/2021 Assessment & Plan (07/13/2021 9:23 AM BUSINESS OWNER/ENGINEER): Coitus associated. Reviewed normal urine culture. Refer to Urology. Advised macrobid before coitus. Follow with Gynecology. Treat new UTI with Cipro. Flank pain 07/13/2021 Assessment & Plan (07/13/2021 8:44 AM BUSINESS OWNER/ENGINEER): ddx includes nephrolithiasis,mass. Renal ultrasound was ordered [...] able Assessment & Plan (06/08/2024 11:08 AM BUSINESS OWNER/ENGINEER): Hypertension is controlled. Continue olmesartan and HCTZ. Assessment & Plan (07/13/2021 8:49 AM BUSINESS OWNER/ENGINEER): Hypertension is controlled. Continue olmesartan and HCTZ. [...] on file Legal Sex Female 1:24 AM BUSINESS OWNER/ENGINEER Gender Identity Not on file Sexual Orientation [...] on file Medical Devices Implanted Type Area Founder Chairman And Chief Creative Officer Device Identifier Shelf Expiration Date Model / Serial / Lot [employer] Viabahn 6mm 6fr 5cm 120cm Delivery System Superficial Femoral [id number] - [id number] - [id number] Implanted:Qty: 1 on 10/15/2024 by Ulisses Omer MD PhD at [facility] Stent N/A: Splenic Artery [employer] [id number] 03/20/2027 [id number] / [id number] / Procedures Procedure Name Priority Date/Time Associated [...] AND SCREEN STAT 10/15/2024 9:55 AM CDT NV AN PROCEDURE PLACEHOLDER Routine 10/15/2024 9:15 AM CDT NV AN PROCEDURE PLACEHOLDER Routine 10/15/2024 9:15 AM CDT NV AN PROCEDURE PLACEHOLDER Routine 10/15/2024 9:15 AM CDT NV AN ELECTIVE ENDOTRACHEAL AIRWAY Routine 10/15/2024 9:15 AM CDT PLACEMENT RENAL ARTERY STENT 10/15/2024 8:32 AM CDT Splenic artery aneurysm POCT HCG, URINE Routine 10/15/2024 7:30 AM CDT CTA ABDOMEN Schedule Routine, Read Routine (OP Routine) 09/14/2024 9:17 AM BUSINESS OWNER/ENGINEER Splenic artery aneurysm EGFR Routine 08/31/2024 10:20 AM BUSINESS OWNER/ENGINEER Physical exam DIFFERENTIAL AUTO Routine 08/31/2024 10: 20 AM BUSINESS OWNER/ENGINEER Physical exam HEMOGLOBIN A1C Routine 08/31/2024 10:20 AM BUSINESS OWNER/ENGINEER Physical exam LIPID PANEL Routine 08/31/2024 10:20 AM BUSINESS OWNER/ENGINEER Physical exam COMPREHENSIVE METABOLIC PANEL Routine 08/31/2024 10:20 AM BUSINESS OWNER/ENGINEER Physical exam THYROID FUNCTION CASCADE Routine 08/31/2024 10:20 AM BUSINESS OWNER/ENGINEER Physical exam CBC WITH AUTO DIFFERENTIAL Routine 08/31/2024 10:20 AM BUSINESS OWNER/ENGINEER Physical exam COLONOSCOPY 11/12/2022 11:49 AM CDT [...] PhD LAB BLOOD ORDERABLES F inal Result [facility] [place] [address] * Basic metabolic panel (10/15/2024 3:58 PM CDT) Sodium 141 135 - 145 mmol/L Potassium, pl 4.4 3.3 - 4.9 mmol/L [facility] Chloride 102 97 - 110 mmol/L [facility] CO2 29 22 - 32 mmol/L [facility] Anion gap 10 2 - 15 mmol/L [facility] BUN 13 6 - 25 mg/dL [facility] Creatinine 0.92 0.60 - 1.10 mg/dL [facility] Glucose 119 70 - 199 mg/dL [facility] Comment: Interpretive Data Fasting glucose >/= [...] 2022. Calcium 9.0 8.5 - 10.3 mg/dL [facility] Blood 10/15/2024 3:58 PM CDT 10/15/2024 4:20 PM CDT us Ulisses Omer MD PhD LAB BLOOD ORDERABLES F inal Result [facility] [address] [facility] Department [place] [address] * (ABNORMAL) CBC without differential (10/15/2024 1:29 PM CDT) WBC 12.1(H) 3.8 - 9.9 K/cumm Hgb 13.2 11.9 - 15.5 g/dL [facility] Hct 37.5 35.6 - 45.5 % [facility] Plt 238 150 - 400 K/cumm [facility] MPV 8.9(L) 9.1 - 12.3 fL [facility] RBC 4.11 3.90 - 5.20 M/cumm [facility] MCV 91.2 81.3 - 96.4 fL [facility] MCH 32.1 27.1 - 33.3 pg [facility] MCHC 35.2 32.3 - 35.7 g/dL [facility] RDW CV 12.0 11.1 - 14.9 % [facility] RDW SD 39.8 35.7 - 48.1 fL [facility] NRBC abs 0.00 0.00 - 0.01 K/cumm [facility] Blood 10/15/2024 1:29 PM CDT 10/15/2024 1:38 PM CDT Ulisses Omer MD PhD LAB BLOOD ORDERABLES F inal Result Performing Organization Address City/[facility] [place] [address] * POCT Activated clotting time, low range (10/15/2024 11:19 AM CDT) ACT 128 123 - 168 sec POC Performer [id number] [facility] POC Device Number [id number] [facility] Blood 10/15/2024 11:1 9 AM CDT 10/15/2024 11:19 AM CDT Ulisses Omer MD PhD LAB POCT ORDERABLES - DEVICE Final Result Performing Organization Address [facility] Co de Phone Number [facility] Department [place] [address] * (ABNORMAL) POCT Activated clotting time, low range (10/15/2024 11:09 AM CDT) ACT 236(H) 123 - 168 sec POC Performer [id number] [facility] POC Device Number [id number] [facility] Blood 10/15/2024 11:0 9 AM CDT 10/15/2024 11:09 AM CDT Ulisses Omer MD PhD LAB POCT ORDERABLES - DEVICE Final Result Performing Organization Address City/[facility] Co de Phone Number [facility] Department [place] [address] * FL Fluoroscopy < 1 Hour (10/15/2024 11:02 AM CDT) Narrative RAD_PACS[facility] - 10/15/2024 11:03 AM CDT The images from this study are not interpreted by Radiology. Please refer to the physician's procedure / OR operative note. Ulisses Omer MD PhD IMG FLUOROSCOPY PROCED URES Final Result Performing Organization Address [facility] Co de Phone Number [facility] * (ABNORMAL) POCT Activated clotting time, low range (10/15/2024 10:40 AM CDT) ACT 292(H) 123 - 168 sec POC Performer [id number] [facility] POC Device Number [id number] [facility] Blood 10/15/2024 10:4 0 AM CDT 10/15/2024 10:40 AM CDT Ulissse Omer MD PhD LAB POCT ORDERABLES - DEVICE Final Result Performing Organization Address [facility] de Phone Number [facility] [place] [address] * (ABNORMAL) POCT Activated clotting time, low range (10/15/2024 10:14 AM CDT) ACT 294(H) 123 - 168 sec POC Performer [id number] [facility] POC Device Number [id number] [facility] Blood 10/15/2024 10:1 4 AM CDT 10/15/2024 10:14 AM CDT Ulisses Omer MD PhD LAB POCT ORDERABLES - DEVICE Final Result Performing Organization Address [facility] Co de Phone Number [facility] [place] [address] * (ABNORMAL) POCT Activated clotting time, low range (10/15/2024 10:05 AM CDT) ACT 239(H) 123 - 168 sec POC Performer [id number] [facility] POC Device Number [id number] [facility] Blood 10/15/2024 10:0 5 AM CDT 10/15/2024 10:05 AM CDT Ulisses Omer MD PhD LAB POCT ORDERABLES - DEVICE Final Result Performing Organization Address [facility] de Phone Number [facility] [place] [address] * POCT Activated clotting time, low range (10/15/2024 9:58 AM CDT) Pathologist [facility] ACT 136 123 - 168 sec POC Performer [id number] [facility] POC Device Number [id number] [facility] Blood 10/15/2024 9:58 AM CDT 10/15/2024 9:58 AM CDT Ulisses Omer MD PhD LAB POCT ORDERABLES - DEVICE Final Result Performing Organization Address [facility] de Phone Number [facility] Department [place] [address] * Type and screen (10/15/2024 9:55 AM CDT) Pathologist [facility] ABO Rh AB Positive Suzy, indirect Negative [facility] Blood 10/15/2024 9:55 AM CDT 10/15/2024 10:22 AM CDT Narrative [facility] - 10/15/2024 11:20 AM CDT Has the patient had Daratumumab or Isatuximab in the past 6 months?->Unknown Kendy Roth MD PhD LAB BLOOD BANK TEST ORDERABLE S Final Result Performing Organization Address City/[facility] Co de Phone Number [facility] Department [place] [address] * [place] AN PROCEDURE PLACEHOLDER (10/15/2024 9:15 AM CDT) [...] PhD ANESTHESIA ORDERABLES Final R esult * NV AN PROCEDURE PLACEHOLDER (10/15/2024 9:15 AM CDT) Kandice Cedillo CRNA - 10/15/2024 9:15 AM CDT Kandice Schwarz CRNA 10/15/2024 9:15 AM Arterial Line Patient location: OR Indication: continuous blood pressure monitoring and blood sampling needed Staff: Supervising provider: Kendy Roth MD PhD Placed by: RECORD CHANGER: Kandice Schwarz CRNA Procedure prep: Prep solution: [...] PhD ANESTHESIA ORDERABLES Final R esult * NV AN ELECTIVE ENDOTRACHEAL AIRWAY, NV AN PROCEDURE PLACEHOLDER (10/15/2024 9:15 AM CDT) Kandice Cedillo CRNA - 10/15/2024 9:15 AM CDT Kandice Schwarz CRNA 10/15/2024 9:15 AM Airway Patient location: pre-op Urgency: elective Indications for airway management: anesthesia Difficult airway: no Staff: Supervising provider: Kendy Roth MD PhD Placed by: RECORD CHANGER: Kandice Schwarz CRNA Emergent airway documentation: Risks [...] Result * CTA Abdomen (09/14/2024 9:17 AM BUSINESS OWNER/ENGINEER) Anatomical Region Laterality Modality Abdomen N/A Computed Tomogra phy 09/14/2024 10:5 3 AM BUSINESS OWNER/ENGINEER Impressions 09/14/2024 11:13 AM BUSINESS OWNER/ENGINEER 1. Interval increase in size of a [...] Sky Hamlin M.D. Narrative 09/14/2024 11:13 AM BUSINESS OWNER/ENGINEER EXAMINATION: CT ANGIOGRAPHY OF THE ABDOMEN WITH [...] Resul t * eGFR (08/31/2024 10:20 AM BUSINESS OWNER/ENGINEER) eGFR 76 >=60 mL/min/1. 73 m2 Comment: [...] reviewed 2021. Blood 08/31/2024 10:2 0 AM BUSINESS OWNER/ENGINEER 08/31/2024 10:33 AM BUSINESS OWNER/ENGINEER us Lux Mejia MD LAB BLOOD ORDERABLES Final Re sult [facility] Department [place] [address] * Differential, auto (08/31/2024 10:20 AM BUSINESS OWNER/ENGINEER) Neutrophil abs 3.8 1.5 - 6.5 K/cumm Imm gran abs 0.0 0.0 - 0.1 K/cumm [facility] Lymphocyte abs 2.3 0.8 - 3.3 K/cumm [facility] Monocyte abs 0.4 0.2 - 0.8 K/cumm [facility] Eosinophil abs 0.3 0.0 - 0.5 K/cumm [facility] Basophil abs 0.1 0.0 - 0.1 K/cumm [facility] Neutrophil pct 54.7 % [facility] Comment: Interpretive Data Percent cell count reference ranges are not reported, since discordance with absolute values may lead to misinterpretation of CBC data. Current Interpretive Data was last revised on 2017. Imm gran pct 0.3 % [facility] Comment: Interpretive Data Percent cell count reference ranges are not reported, since discordance with absolute values may lead to misinterpretation of CBC data. Current Interpretive Data was last revised on 2017. Lymphocyte pct 34.0 % [facility] Comment: Interpretive Data Percent cell count reference ranges are not reported, since discordance with absolute values may lead to misinterpretation of CBC data. Current Interpretive Data was last revised on 2017. Monocyte pct 5.4 % [facility] Comment: Interpretive Data Percent cell count reference ranges are not reported, since discordance with absolute values may lead to misinterpretation of CBC data. Current Interpretive Data was last revised on 2017. Eosinophil pct 4.9 % [facility] Comment: Interpretive Data Percent cell count reference ranges are not reported, since discordance with absolute values may lead to misinterpretation of CBC data. Current Interpretive Data was last revised on 2017. Basophil pct 0.7 % [facility] Comment: Interpretive Data Percent cell count reference ranges are not reported, since discordance with absolute values may lead to misinterpretation of CBC data. Current Interpretive Data was last revised on 2017. Blood 08/31/2024 10:2 0 AM BUSINESS OWNER/ENGINEER 08/31/2024 10:29 AM BUSINESS OWNER/ENGINEER Lux Mejia MD LAB BLOOD ORDERABLES Final Re sult Performing Organization Address City/[facility]/ZIP Co de Phone Number [facility] Department [place] [address] * Thyroid Function Gwynn (08/31/2024 10:20 AM BUSINESS OWNER/ENGINEER) [facility] TSH 2.61 0.30 - 4.20 mcIUnit/mL Blood 08/31/2024 10:2 0 AM BUSINESS OWNER/ENGINEER 08/31/2024 10:29 AM BUSINESS OWNER/ENGINEER Lux Mejia MD LAB BLOOD ORDERABLES Final Re sult Performing Organization Address City/[facility] Co de Phone Number [facility] [place] [address] * (ABNORMAL) CBC with auto differential (08/31/2024 10:20 AM BUSINESS OWNER/ENGINEER) [facility] WBC 6.9 3.8 - 9.9 K/cumm Hgb 14.3 11.9 - 15.5 g/dL [facility] Hct 39.8 35.6 - 45.5 % [facility] Plt 351 150 - 400 K/cumm [facility] MPV 9.1 9.1 - 12.3 fL [facility] RBC 4.37 3.90 - 5.20 M/cumm [facility] MCV 91.1 81.3 - 96.4 fL [facility] MCH 32.7 27.1 - 33.3 pg [facility] MCHC 35.9(H) 32.3 - 35.7 g/dL [facility] RDW CV 12.4 11.1 - 14.9 % [facility] RDW SD 41.0 35.7 - 48.1 fL [facility] NRBC abs 0.00 0.00 - 0.01 K/cumm [facility] Blood 08/31/2024 10:2 0 AM BUSINESS OWNER/ENGINEER 08/31/2024 10:29 AM BUSINESS OWNER/ENGINEER Lux Mejia MD LAB BLOOD ORDERABLES Final Re sult Performing Organization Address City/[facility]/ZIP Co de Phone Number [facility] [place] [address] * Hemoglobin A1c (08/31/2024 10:20 AM BUSINESS OWNER/ENGINEER) Pathologist [facility] Hgb A1C 5.0 4.0 - 5.6 % Estimated Average Glucose 97 mg/dL [facility] Comment: The ADA recommends reporting an estimated Average Glucose (eAG) with all Hemoglobin A1c results using the equation derived from a study of 507 normal and diabetic adults. Minority populations were underrepresented and children were not included. (Diabetes Care 2020; 43(S1): S66-S76). The eAG is not equivalent to a fasting glucose. Blood 08/31/2024 10:2 0 AM BUSINESS OWNER/ENGINEER 08/31/2024 10:29 AM BUSINESS OWNER/ENGINEER Lux Mejia MD LAB BLOOD ORDERABLES Final Re sult [facility] of [place] [address] * (ABNORMAL) Lipid panel (08/31/2024 10:20 AM BUSINESS OWNER/ENGINEER) Pathologist [facility] Cholesterol 253(H) 30 - 199 mg/dL Comment: [...] revised on 2018. Triglycerides 148 <=149 mg/dL [facility] Comment: Interpretive Data Ages < or [...] revised on 2018. HDL 54 >=40 mg/dL [facility] Comment: Interpretive Data Ages < or [...] on 2018. LDL, calculated 172(H) <=129 mg/dL [facility] Comment: Interpretive Data Ages < or [...] revised on 2024. Non-HDL Cholesterol 199 mg/dL [facility] Comment: Interpretive Data Ages < or [...] last revised on 2018. Chol/HDL ratio 5 [facility] Blood 08/31/2024 10:2 0 AM BUSINESS OWNER/ENGINEER 08/31/2024 10:29 AM BUSINESS OWNER/ENGINEER Lux Mejia MD LAB BLOOD ORDERABLES Final Re sult [facility] Department [place] [address] * Comprehensive metabolic panel (08/31/2024 10:20 AM BUSINESS OWNER/ENGINEER) Sodium 139 135 - 145 mmol/L Potassium, pl 3.8 3.3 - 4.9 mmol/L [facility] Chloride 102 97 - 110 mmol/L [facility] CO2 29 22 - 32 mmol/L [facility] Anion gap 8 2 - 15 mmol/L [facility] BUN 16 6 - 25 mg/dL [facility] Creatinine 0.90 0.60 - 1.10 mg/dL [facility] Glucose 103 70 - 199 mg/dL [facility] Comment: Interpretive Data Fasting glucose >/= [...] Calcium 9.4 8.5 - 10.3 mg/dL [facility] Bilirubin, total 0.4 0.1 - 1.2 mg/dL [facility] Protein, pl 7.3 6.5 - 8.5 g/dL [facility] Albumin 4.5 3.5 - 5.0 g/dL [facility] Alk phos 78 40 - 130 Units/L [facility] ALT 23 7 - 45 Units/L [facility] AST 28 10 - 45 Units/L [facility] Blood 08/31/2024 10:2 0 AM BUSINESS OWNER/ENGINEER 08/31/2024 10:29 AM BUSINESS OWNER/ENGINEER us Lux Mejia MD LAB BLOOD ORDERABLES Final Re sult [facility] Department [place] [address] * COLONOSCOPY (11/12/2022 11:49 AM CDT) Anatomical Region Laterality Modality Other Narrative Procedure Note Paresh Ledbetter MD - 11/12/2022 11:49 AM CDT [facility] Patient Name: Nancie Lenz Procedure Date: 11/12/2022 11:49 AM Date of : 1970 Admit Type: Outpatient Age: 52 Gender: Female Attending MD: Paresh Ledbetter M.D. Room: [facility] ENDOSCOPY ROOM 9 Note Status: [...] The scope was passed under direct vision.The [id number] endoscope was introduced through the anus and advanced to the cecum, identified by appendiceal orifice and ileocecal valve. The colonoscopy was performed without difficulty. The patient tolerated the procedure well. The qualityof the bowel preparation was evaluated using the BBPS ([place] Bowel Preparation Scale) with scores of:Right Colon [...] On: 11/12/2022 11:49 AM Recognized by the [place] [employer] for promoting quality in endoscopy Paresh Ledbetter MD ENDOSCOPY PROCEDURES Final Re sult from Last 3 Months or Most Recently Relevant to Health Maintenance Insurance [employer] [facility] BLUE ACCESS CHOICE [place] [employer] ACCESS CHOICE [place] Advance Directives For more information, please contact: [phone] * Full Code (Latest Code Status on File) Date Activated Date Inactivated Comments 10/15/2024 4:33 PM 10/16/2024 2:08 PM * Full Code Date Activated Date Inactivated Comments 11/12/2022 10:23 AM 11/12/2022 5:03 PM Care Teams Radiology Technician Relationship Specialty Start Date End Date Lux Mejia MD [address] [facility] [address] [place] [address] PCP - General Internal Medicine 01/29/21
[2024-10-28] MEDS: SODIUM CHLORIDE 0.9% IV 1,000 ML 999 ML IV CONT (07:55)
[2024-10-28] MEDS: KETOROLAC 30 MG/ML VIAL (*BKC) IV PUSH (07:55)
--- NOTE | 2024-10-28 08:08 | ED_ITS ---
HPI - General Adult General Chief complaint: Back Pain/Injury Stated complaint: 10/15 splenic stent, upper left back pain Time Seen by Provider: 10/28/24 07:04 History of Present Illness HPI narrative: Patient is a 54-year-old female who presents ER with left-sided upper back pain. Sudden onset last night. Worse with taking deep breath. No runny nose or sore throat or cough. No hemoptysis. Is not found alleviating factors. 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 She has had no complications up till now. She has been avoiding any heavy lifting though she did go to the library and get some books yesterday. No leg swelling or cramping. She is not on any blood thinning medications. Related Data Home Medications ?Medication ?Instructions ?Recorded ?Confirmed ?Last Taken ?Type bupropion HCl 300 mg 24 hr tablet, 450 mg PO DAILY 06/28/19 09/25/22 07/12/19 07:00 History extended release (Wellbutrin XL) olmesartan 40 1 tablet PO DAILY 06/28/19 09/25/22 07/12/19 07:00 History mg-hydrochlorothiazide 12.5 mg tablet (Benicar HCT) Allergies Allergy/AdvReac Type Severity Reaction Status Date / Time No Known Allergies Allergy Verified 09/23/22 13:04 Review of Systems 2 Review of Systems: All systems reviewed & are unremarkable except as noted in HPI and below Constitutional: Constitutional: Reports no additional constitutional complaints Cardiovascular: Cardiovascular: Reports no additional cardiovascular complaints Respiratory: Respiratory: Reports no additional respiratory complaints Gastrointestinal: Gastrointestinal: Reports no additional gastrointestinal complaints Musculoskeletal: Musculoskeletal: Reports no additional musculoskeletal complaints [facility] Past Medical History Medical History (Updated 10/28/24 @ 08:12 by Anand Meek MD) Fracture of right hip requiring operative repair Cyst of Bartholin gland or duct removed and had to be taken back to surgery of 2nd time to cauterize the bleeders Depression Acute diverticulitis Diverticulitis Breast cancer, right TIERRA (obstructive sleep apnea) Hypertension Surgical History Surgical History (Reviewed 09/23/22 @ 12:47 by Greer Castillo [facility]) History of appendectomy History of breast reconstruction S/P arthroscopic surgery of right knee History of bunionectomy H/O mastectomy bilateral with a history of right breast cancer and breast reconstruction Family History Family History Mother Family history of osteoarthritis Dementia Father Family history of lung cancer, Onset Age: 75 Patient's father is Social History Social History Social History: 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 She desires to be a full code. She has 2 children. Two girls 11 in 13. She is currently unemployed. Smoking status: Never smoker Alcohol intake: current Substance use: never Other substance usage details: occasional alcohol intake socially (2-3 drinks per month) Living arrangements: with family Occupation/Education: unemployed Gender identity (if verbalized by the patient): Female Spiritual care concerns: No Agree to blood products: Yes Exam 2 Narrative: GENERAL: Well-appearing, well-nourished, and in no acute distress. HEAD: Normocephalic, atraumatic. ENT: Mucous membranes moist. CHEST: Clear to auscultation. No respiratory distress. HEART: Regular rate and rhythm. Normal peripheral pulses. ABDOMEN: Soft, nontender, nondistended. No CVA tenderness. Back: No reproducible midline or paraspinal muscle tenderness the back. EXTREMITIES: Normal range of motion. No edema. SKIN: Warm, dry, no rash. NEURO: Alert and oriented x3. PSYCH: Normal mood and affect. Course Course Emergency Course: Patient resting comfortably. Toradol for pain which is helped her discomfort. Labs unremarkable. CTA of the chest shows no pulmonary emboli. Pain felt to be musculoskeletal. Discharge with muscle relaxers and p.r.n. Tylenol/ibuprofen. Vital Signs Vital signs: Vital Signs Temperature 98.8 F 10/28/24 05:57 Pulse Rate 82 10/28/24 05:57 Respiratory Rate 23 H 10/28/24 05:57 Blood Pressure 135/98 H 10/28/24 05:57 Pulse Oximetry 100 10/28/24 05:57 Oxygen Delivery Room Air 10/28/24 05:57 Temperature 98.8 F 10/28/24 05:57 Pulse Rate 77 10/28/24 06:47 Respiratory Rate 17 10/28/24 06:47 Blood Pressure 114/83 10/28/24 06:40 Pulse Oximetry 97 10/28/24 06:47 Oxygen Delivery Room Air 10/28/24 05:57 Medical Decision Making Vital Signs Vital Signs: Vital Signs Temperature 98.8 F 10/28/24 05:57 Pulse Rate 82 10/28/24 05:57 Respiratory Rate 23 H 10/28/24 05:57 Blood Pressure 135/98 H 10/28/24 05:57 Pulse Oximetry 100 10/28/24 05:57 Oxygen Delivery Room Air 10/28/24 05:57 Temperature 98.8 F 10/28/24 05:57 Pulse Rate 77 10/28/24 06:47 Respiratory Rate 17 10/28/24 06:47 Blood Pressure 114/83 10/28/24 06:40 Pulse Oximetry 97 10/28/24 06:47 Oxygen Delivery Room Air 10/28/24 05:57 Lab Data 10/28/24 06:32 10/28/24 06:32 Labs: Lab Results 10/28/24 Range/Units 06:32 WBC 8.2 (4.5-10.0) K/mm3 RBC 4.39 (4.2-5.4) M/mm3 Hgb 14.3 (12.0-15.0) g/dL Hct 42.3 (37.0-47.0) % MCV 96.4 (80-100) fl MCH 32.6 (26-34) pg MCHC 33.8 (32-36) g/dl RDW 12.1 (11.5-14.5) % Plt Count 302 (150-375) k/mm3 MPV 9.0 (7.4-10.4) fl Immature Gran % (Auto) 0.2 (0-0.5) % Neut % (Auto) 62.5 (45.5-73.1) % Lymph % (Auto) 29.2 (18.3-44.2) % [place] % (Auto) 4.7 (2.6-8.5) % Eos % (Auto) 3.2 (0-4.4) % Baso % (Auto) 0.2 (0.2-1.2) % Lymph # (Auto) 2.41 (0.9-3.2) K/mm3 [place] # (Auto) 0.4 (0.1-0.6) K/mm3 Eos # (Auto) 0.3 (0-0.3) K/mm3 Baso # (Auto) 0.0 (0.0-0.1) K/mm3 Abs Immat Gran (auto) 0.02 (0.00-0.031) K/mm3 Absolute Neuts (auto) 5.1 (1.3-6.7) K/mm3 Absolute Nucleated RBC 0.000 (0.0-0.012) K/mm3 Nucleated RBC % 0.0 (0.0-0.2) % PT 12.3 (11.1-14.7) Seconds INR 0.9 APTT 29.5 (22.3-36.8) Seconds Sodium 140 (137-145) mmol/L Potassium 4.0 (3.4-5.0) mmol/L Chloride 101 (98-107) mmol/L Carbon Dioxide 28 (22-30) mmol/L Anion Gap 11 (4-12) mmol/L BUN 13 (7-17) mg/dL Creatinine 0.93 (0.7-1.0) mg/dL Estim Creat Clear Calc Not Reportable Estimated GFR > 60 (59 - ) Glucose 112 H (65-110) mg/dL Calcium 9.6 (8.4-10.2) mg/dL Total Bilirubin 0.3 (0.2-1.3) mg/dL AST 34 (14-36) U/L ALT 41 H (6-35) U/L Alkaline Phosphatase 68 (38-126) U/L Total Protein 8.0 (6.3-8.2) g/dL Albumin 4.7 (3.5-5.1) g/dL Lipase 134 (23-300) U/L Imaging Data Radiologist's impression: ITS Impressions Chest CTA 10/28/24 07:49 IMPRESSION: 1. No pulmonary embolism. 2. No acute cardiopulmonary pathology. 3. Small sliding hiatus hernia. Discharge Plan Discharge Clinical Impression: Cramp in muscle Patient Disposition: Home, Self-Care Condition: Stable Instructions: Muscle Cramp (ED) Additional Instructions: Return ER if you have worsening pain in her back abdomen, you cannot keep down food or water, you lose consciousness, or you have additional concerns. Patient Language: Sinhala Prescriptions: New cyclobenzaprine 10 mg tablet 10 mg PO TID PRN (Reason: muscle spasm) Qty: 14 0RF No Action amoxicillin-pot clavulanate 875-125 mg tablet 1 tablet PO Q12H Qty: 10 0RF olmesartan-hydrochlorothiazide [Benicar HCT] 40-12.5 mg tablet 1 tablet PO DAILY bupropion HCl [Wellbutrin XL] 300 mg tablet extended release 24 hr 450 mg PO DAILY ondansetron 4 mg tablet,disintegrating 4 mg PO Q6H PRN (Reason: nausea and vomiting) Qty: 10 0RF Follow-up/Referrals: Jackie,Lux Moreira MD [Primary Care Provider] - 1 Week
== END 2024-10-28 08:56 | disposition home or self-care (01) ==
PROVIDERS: Student in an Organized Health Care Education/Training Program; Emergency Provider Emergency Medicine; PCP Internal Medicine
DX: R25.2 Cramp and spasm (principal); G47.33 Obstructive sleep apnea (adult) (pediatric); I10 Essential (primary) hypertension; Z85.3 Personal history of malignant neoplasm of breast
CPT/HCPCS: 36415; 71275; 80053; 83690; 85025; 85610; 85730; 96361; 96374; 99284; J1885; J7030; Q9967